=== PATIENT | male | born 1955 | race Caucasian/White ===

== ENCOUNTER 2017-07-26 14:44 | Inpatient (IN) | payer MEDICAID ==
[~2017-07-26] VITALS: Ht 182.9 cm; Wt 153.1 kg
[~2017-07-26 14:44] MED LIST: BENZ0.5T PO; CETI10 PO; CITA40TA4 PO; CLAR10CA3 PO; HYDR50CA PO; MONT10TA4 PO; OMEGCAP PO; RISP2TAB2 PO; SIMV40TA PO
[2017-07-26 15:05] VITALS: BP 124/77; PULSE 84; RESP 24; TEMP 98.5; O2SAT 90
--- NOTE | 2017-07-26 15:26 | PD ---
HPI Chief Complaint: Respiratory Symptoms Time Seen by Provider: 15:18 Travel History International Travel<30 days: No Contact w/Intl Traveler<30days: No Traveled to known affect area: No History of Present Illness HPI 62-year-old male with PMH of DM, HTN presents to the ED via EMS for evaluation of 2 week history of shortness of breath, cough productive of "green slime." Symptoms onset gradually. He denies fever, chills, sinus congestion, rhinorrhea , abdominal pain, nausea, vomiting, lower extremity edema. Denies any recent history of immobilization, previous DVT or PE. He was being seen in a outpatient clinic in [place] today when he had a coughing fit, O2 sats in the 60s. He received albuterol treatments 2 en route. O2 sats improved to 91% on 5 L by nasal cannula. He states that he does not see a doctor regularly. PFSH Past Medical History Depression: Yes High Cholesterol: Yes Diabetes: Yes (diet controlled) Patient Takes Glucophage: No Diminished Hearing: No Hypertension: Yes Influenza Vaccination: No Past Surgical History Cholecystectomy: Yes Social History Alcohol Use: No Tobacco Use: No Substance Use: No Allergies-Medications (Allergen,Severity, Reaction): Coded Allergies: No Known Allergies (Verified Adverse Reaction, Unknown, 07/26/17) Reported Meds & Prescriptions Reported Meds & Active Scripts Active Reported Montelukast (Montelukast Sodium) 10 Mg Tab 10 Mg PO HS Risperidone 2 Mg Tab 2 Mg PO HS Benztropine (Benztropine Mesylate) 0.5 Mg Tab 1 Mg PO HS Cetirizine (Cetirizine HCl) 10 Mg Tab 10 Mg PO DAILY Simvastatin 40 Mg Tab 40 Mg PO HS Citalopram (Citalopram Hydrobromide) 40 Mg Tab 40 Mg PO DAILY Hydroxyzine Pamoate 50 Mg Cap 50 Mg PO PRN Claritin (Loratadine) 10 Mg Cap 10 Mg PO DAILY [place]-3 Fish Oil/Vitamin (Fish Oil-Cholecalciferol) 1,000-1,000 Mg Cap 1 Cap PO DAILY Review of Systems Except as stated in HPI: all other systems reviewed are Neg Physical Exam Narrative GENERAL: Obese white male on nasal cannula in no acute distress. SKIN: Focused skin assessment warm/dry. Multiple small erythematous lesions of the extremities consistent with eczema HEAD: Normocephalic. EYES: No scleral icterus. No injection or drainage. NECK: Supple, trachea midline. No JVD or lymphadenopathy. CARDIOVASCULAR: Regular rate and rhythm without murmurs, gallops, or rubs. RESPIRATORY: Breath sounds coarse in the right lower lobe. Endocrine wheezing bilaterally. No accessory muscle use. GASTROINTESTINAL: Abdomen soft, protuberant, non-tender, nondistended. MUSCULOSKELETAL: No cyanosis, or edema. Homans sign negative bilaterally. BACK: Nontender without obvious deformity. No CVA tenderness. Data Data Last Documented VS Vital Signs Date Time Temp Pulse Resp B/P (MAP) Pulse Ox O2 Delivery O2 Flow Rate FiO2 07/26/17 17:05 91 Nasal Cannula 6.00 07/26/17 15:05 98.5 84 24 124/77 (93) Orders Orders Complete Blood Count With Diff (07/26/17 15:18) Comprehensive Metabolic Panel (07/26/17 15:18) B-Type Natriuretic Peptide (07/26/17 15:18) Act Partial Throm Time (Ptt) (07/26/17 15:18) Prothrombin Time / Inr (Pt) (07/26/17 15:18) Ckmb (Isoenzyme) Profile (07/26/17 15:18) Troponin I (07/26/17 15:18) Iv Access Insert/Monitor (07/26/17 15:18) Electrocardiogram (07/26/17 15:18) Ecg Monitoring (07/26/17 15:18) Oximetry (07/26/17 15:18) Oxygen Administration (07/26/17 15:18) Chest, Single Ap (07/26/17 15:18) Sodium Chloride 0.9% Flush (Ns Flush) (07/26/17 15:30) Albuterol-Ipratropium Neb (Duoneb Neb) (07/26/17 15:30) Methylprednisolone So Succ Inj (Solumedr (07/26/17 15:30) CKMB (07/26/17 15:09) CKMB% (07/26/17 15:09) Blood Culture (07/26/17 17:04) Ceftriaxone Inj (Rocephin Inj) (07/26/17 17:15) Azithromycin Inj (Zithromax Inj) (07/26/17 17:15) Admit Order (Ed Use Only) (07/26/17 17:31) Admit To Inpatient (07/26/17 ) Vital Signs (Adult) Q4H (07/26/17 17:31) Activity Oob With Assistance (07/26/17 17:31) Applications Analyst / Telemetry .CONTINUOUS (07/26/17 17:31) Intake + Output MIHAI.QSHIFT (07/26/17 17:31) Diet Heart Healthy (07/26/17 Dinner) Sodium Chloride 0.9% Flush (Ns Flush) (07/26/17 17:45) Sodium Chloride 0.9% Flush (Ns Flush) (07/26/17 21:00) Basic Metabolic Panel (Bmp) (07/27/17 06:00) Complete Blood Count With Diff (07/27/17 06:00) Pt Request For Service (07/26/17 17:31) Case Management Consult (07/26/17 17:31) Naloxone Inj (Narcan Inj) (07/26/17 17:45) Inpatient Certification (07/26/17 ) D-Dimer (07/26/17 17:31) Labs Laboratory Tests Test 07/26/17 15:09 White Blood Count 8.2 TH/MM3 Red Blood Count 5.19 MIL/MM3 Hemoglobin 15.4 GM/DL Hematocrit 46.4 % Mean Corpuscular Volume 89.4 FL Mean Corpuscular Hemoglobin 29.7 PG Mean Corpuscular Hemoglobin Concent 33.3 % Red Cell Distribution Width 15.2 % Platelet Count 200 TH/MM3 Mean Platelet Volume 7.7 FL Neutrophils (%) (Auto) 67.8 % Lymphocytes (%) (Auto) 14.7 % Monocytes (%) (Auto) 9.5 % Eosinophils (%) (Auto) 7.1 % Basophils (%) (Auto) 0.9 % Neutrophils # (Auto) 5.5 TH/MM3 Lymphocytes # (Auto) 1.2 TH/MM3 Monocytes # (Auto) 0.8 TH/MM3 Eosinophils # (Auto) 0.6 TH/MM3 Basophils # (Auto) 0.1 TH/MM3 CBC Comment DIFF FINAL Differential Comment Prothrombin Time 13.4 SEC Prothromb Time International Ratio 1.3 RATIO Activated Partial Thromboplast Time 32.0 SEC Blood Urea Nitrogen 11 MG/DL Creatinine 1.54 MG/DL Random Glucose 88 MG/DL Total Protein 9.1 GM/DL Albumin 2.7 GM/DL Calcium Level 8.3 MG/DL Alkaline Phosphatase 115 U/L Aspartate Amino Transf (AST/SGOT) 34 U/L Alanine Aminotransferase (ALT/SGPT) 17 U/L Total Bilirubin 0.7 MG/DL Sodium Level 135 MEQ/L Potassium Level 3.9 MEQ/L Chloride Level 99 MEQ/L Carbon Dioxide Level 27.8 MEQ/L Anion Gap 8 MEQ/L Estimat Glomerular Filtration Rate 46 ML/MIN Total Creatine Kinase 135 U/L Creatine Kinase MB LESS THAN 0.5 NG/ML Troponin I LESS THAN 0.02 NG/ML B-Type Natriuretic Peptide 6 PG/ML MDM Medical Decision Making Medical Screen Exam Complete: Yes Emergency Medical Condition: Yes Differential Diagnosis PNA versus COPD versus PE versus ACS versus other Narrative Course 62-year-old male with PMH of DM, HTN presents to the ED via EMS for evaluation after having O2 sats in the 60s during a coughing fit an outpatient clinic in [facility]. He reports 2 week history of shortness of breath, cough productive of "green slime." Symptoms onset gradually. He denies fever, chills , sinus congestion, rhinorrhea, abdominal pain, nausea, vomiting, lower extremity edema, history of immobilization, previous DVT or PE. He received albuterol treatments 2 en route. O2 sats improved to 91% on 5 L by nasal cannula on arrival. Vitals reviewed. On exam this is a obese white male in no acute distress. He has coarse breath sounds in the right lower lobe and end expiratory wheezing bilaterally. IV was established. He was administered IV Solu-Medrol, DuoNeb 2. EKG rate 87, sinus rhythm. Normal intervals. Normal axis. Inverted T waves noted in leads III, V1, V2, V3. This is new as compared to previous EKG of . Reviewed by Dr. Garces. Cardiac enzymes negative 1. CXR: Mild edema pattern. Can't exclude infectious infiltrate. No effusion. No pneumothorax. WBC no concerning abnormalities. INR 1.3. CMP: BUN 11, creatinine 1.54. BNP: 6 Wells PE score:0 On recheck O2 sats 87% on 4 L nasal cannula. Blood cultures were drawn. Patient was administered IV azithromycin and Rocephin. I discussed the results of the workup with the patient and recommended admission due to CAP, ongoing hypoxia and EKG changes. The patient and his are agreeable to this plan. I spoke with Dr. Sage who agrees to accept the patient to the medicine service. Please see medicine notes for disposition. Sultana Keith Jul 26, 2017 15:26
[2017-07-26] MEDS ORDERED: SODIUM CHLORIDE 0.9% FLUSH 10 ML FLUSH IVF PRN (15:30)
[2017-07-26] MEDS ORDERED: methylPREDNISolone SOD SUCC 125 MG/2 ML VIAL IV PUSH ONE (15:30)
[2017-07-26 15:33] VITALS: O2SAT 92
[2017-07-26] MEDS: RESP: ALBUTEROL 2.5 MG/IPRATROPIUM 0.5 MG NEB (SCH) INH (15:33)
[2017-07-26 15:57] LABS: AUTOMATED NEUTROPHIL # 5.5 TH/MM3 (1.8-7.7); BASOPHIL # 0.1 TH/MM3 (0-0.2); BASOPHIL % 0.9 % (0.0-2.0); EOSINOPHIL # 0.6 TH/MM3 (0-0.4); EOSINOPHIL % 7.1 % (0.0-4.0); HEMATOCRIT 46.4 % (39.0-51.0); HEMOGLOBIN 15.4 GM/DL (13.0-17.0); LYMPH % 14.7 % (9.0-44.0); LYMPHOCYTE # 1.2 TH/MM3 (1.0-4.8); MEAN CELL VOLUME 89.4 FL (80.0-100.0); MEAN CORPUSCULAR HEMOGLOBIN 29.7 PG (27.0-34.0); MEAN CORPUSCULAR HGB CONC 33.3 % (32.0-36.0); MEAN PLATELET VOLUME 7.7 FL (7.0-11.0); MONO % 9.5 % (0.0-8.0); MONOCYTE # 0.8 TH/MM3 (0-0.9); NEUT % 67.8 % (16.0-70.0); PLATELET COUNT 200 TH/MM3 (150-450); RED BLOOD COUNT 5.19 MIL/MM3 (4.50-5.90); RED CELL DISTRIBUTION WIDTH 15.2 % (11.6-17.2); WHITE BLOOD COUNT 8.2 TH/MM3 (4.0-11.0)
[2017-07-26 16:04] LABS: INTERNATIONAL NORMALIZED RATIO 1.3 RATIO; PROTHROMBIN TIME - PATIENT 13.4 SEC (9.8-11.6)
--- NOTE | 2017-07-26 16:08 | PD ---
Data Data Last Documented VS Vital Signs Date Time Temp Pulse Resp B/P (MAP) Pulse Ox O2 Delivery O2 Flow Rate FiO2 07/26/17 17:05 91 Nasal Cannula 6.00 07/26/17 15:05 98.5 84 24 124/77 (93) Orders Orders Complete Blood Count With Diff (07/26/17 15:18) Comprehensive Metabolic Panel (07/26/17 15:18) B-Type Natriuretic Peptide (07/26/17 15:18) Act Partial Throm Time (Ptt) (07/26/17 15:18) Prothrombin Time / Inr (Pt) (07/26/17 15:18) Ckmb (Isoenzyme) Profile (07/26/17 15:18) Troponin I (07/26/17 15:18) Iv Access Insert/Monitor (07/26/17 15:18) Electrocardiogram (07/26/17 15:18) Ecg Monitoring (07/26/17 15:18) Oximetry (07/26/17 15:18) Oxygen Administration (07/26/17 15:18) Chest, Single Ap (07/26/17 15:18) Sodium Chloride 0.9% Flush (Ns Flush) (07/26/17 15:30) Albuterol-Ipratropium Neb (Duoneb Neb) (07/26/17 15:30) Methylprednisolone So Succ Inj (Solumedr (07/26/17 15:30) CKMB (07/26/17 15:09) CKMB% (07/26/17 15:09) Blood Culture (07/26/17 17:04) Ceftriaxone Inj (Rocephin Inj) (07/26/17 17:15) Azithromycin Inj (Zithromax Inj) (07/26/17 17:15) Admit To Inpatient (07/26/17 ) Vital Signs (Adult) Q4H (07/26/17 17:31) Activity Oob With Assistance (07/26/17 17:31) Cleaner And Polisher / Telemetry .CONTINUOUS (07/26/17 17:31) Intake + Output MIHAI.QSHIFT (07/26/17 17:31) Sodium Chloride 0.9% Flush (Ns Flush) (07/26/17 17:45) Sodium Chloride 0.9% Flush (Ns Flush) (07/26/17 21:00) Basic Metabolic Panel (Bmp) (07/27/17 06:00) Complete Blood Count With Diff (07/27/17 06:00) Pt Request For Service (07/26/17 17:31) Case Management Consult (07/26/17 17:31) Naloxone Inj (Narcan Inj) (07/26/17 17:45) Inpatient Certification (07/26/17 ) D-Dimer (07/26/17 17:31) Labs Laboratory Tests Test 07/26/17 15:09 White Blood Count 8.2 TH/MM3 Red Blood Count 5.19 MIL/MM3 Hemoglobin 15.4 GM/DL Hematocrit 46.4 % Mean Corpuscular Volume 89.4 FL Mean Corpuscular Hemoglobin 29.7 PG Mean Corpuscular Hemoglobin Concent 33.3 % Red Cell Distribution Width 15.2 % Platelet Count 200 TH/MM3 Mean Platelet Volume 7.7 FL Neutrophils (%) (Auto) 67.8 % Lymphocytes (%) (Auto) 14.7 % Monocytes (%) (Auto) 9.5 % Eosinophils (%) (Auto) 7.1 % Basophils (%) (Auto) 0.9 % Neutrophils # (Auto) 5.5 TH/MM3 Lymphocytes # (Auto) 1.2 TH/MM3 Monocytes # (Auto) 0.8 TH/MM3 Eosinophils # (Auto) 0.6 TH/MM3 Basophils # (Auto) 0.1 TH/MM3 CBC Comment DIFF FINAL Differential Comment Prothrombin Time 13.4 SEC Prothromb Time International Ratio 1.3 RATIO Activated Partial Thromboplast Time 32.0 SEC Blood Urea Nitrogen 11 MG/DL Creatinine 1.54 MG/DL Random Glucose 88 MG/DL Total Protein 9.1 GM/DL Albumin 2.7 GM/DL Calcium Level 8.3 MG/DL Alkaline Phosphatase 115 U/L Aspartate Amino Transf (AST/SGOT) 34 U/L Alanine Aminotransferase (ALT/SGPT) 17 U/L Total Bilirubin 0.7 MG/DL Sodium Level 135 MEQ/L Potassium Level 3.9 MEQ/L Chloride Level 99 MEQ/L Carbon Dioxide Level 27.8 MEQ/L Anion Gap 8 MEQ/L Estimat Glomerular Filtration Rate 46 ML/MIN Hemoglobin A1c 6.2 % Total Creatine Kinase 135 U/L Creatine Kinase MB LESS THAN 0.5 NG/ML Troponin I LESS THAN 0.02 NG/ML B-Type Natriuretic Peptide 6 PG/ML MDM Medical Record Reviewed: Yes Supervised Visit with SHOBHA: Yes Narrative Course This report is in ERROR Please disregard this report and all prior copies ! This report is in ERROR Please disregard this report and all prior copies ! This report is in ERROR Please disregard this report and all prior copies ! Dheeraj Garces MD Jul 26, 2017 16:08
[2017-07-26 16:19] LABS: ALT (GPT) 17 U/L (12-78)
[2017-07-26 16:23] LABS: ALKALINE PHOSPHATASE 115 U/L (45-117); TOTAL BILIRUBIN ADULT 0.7 MG/DL (0.2-1.0); TOTAL PROTEIN 9.1 GM/DL (6.4-8.2); TROPONIN I LESS THAN 0.02 NG/ML (0.02-0.05)
--- NOTE | 2017-07-26 16:39 | RADRPT ---
EXAM DATE/TIME: 07/26/2017 15:51 [facility] COMPARISON: No previous studies available for comparison. INDICATIONS : Shortness of breath. MEDICAL HISTORY : Hypercholesterolemia. Hypertension. Diabetes. Depression. SURGICAL HISTORY : None. ENCOUNTER: Initial ACUITY: 1 day PAIN SCORE: 0/10 LOCATION: Bilateral chest FINDINGS: Mild hazy opacity in the lungs today are present mild edema. Cardiomegaly. No effusion. No pneumothor ax. CONCLUSION: 1. Mild edema pattern. Can't exclude infectious infiltrate. No significant effusion. No pneumothorax. Gulshan Gandara MD on July 26, 2017 at 16:35 Board Certified Radiologist. This report was verified electronically.
[2017-07-26 16:43] LABS: ALBUMIN 2.7 GM/DL (3.4-5.0); AST (GOT) 34 U/L (15-37); BICARBONATE 27.8 MEQ/L (21.0-32.0); BLOOD UREA NITROGEN 11 MG/DL (7-18); CALCIUM 8.3 MG/DL (8.5-10.1); CHLORIDE 99 MEQ/L (98-107); CREATININE 1.54 MG/DL (0.60-1.30); GLOMERULAR FILTRATION RATE 46 ML/MIN (>89); GLUCOSE,RANDOM 88 MG/DL (74-106); SODIUM (NA) 135 MEQ/L (136-145)
[2017-07-26] MEDS ORDERED: AZITHROMYCIN INJ 500 MG in SODIUM CHLOR 0.9% 250 ML INJ 250 ML IV ONE (17:15)
[2017-07-26] MEDS ORDERED: cefTRIAXone INJ 1,000 MG in SODIUM CHLORIDE 0.9% INJ 100 ML IV ONE (17:15)
[2017-07-26] MEDS ORDERED: DEXTROSE 50% IN WATER 50 ML VIAL(D50) IV PUSH PRN (17:45)
[2017-07-26] MEDS ORDERED: RESP: ALBUTEROL 2.5 MG/IPRATROPIUM 0.5 MG NEB (PRN) NEB (17:45)
[2017-07-26] MEDS ORDERED: NALOXONE HCL 0.4 MG/ML AMP IV PUSH PRN (17:45)
[2017-07-26] MEDS ORDERED: GLUCAGON 1 MG/ML VIAL OTHER PRN (17:45)
[2017-07-26] MEDS ORDERED: SODIUM CHLORIDE 0.9% FLUSH 10 ML FLUSH IV FLUSH PRN (17:45)
[2017-07-26] MEDS: methylPREDNISolone SOD SUCC 40 MG/1 ML VIAL IV PUSH SCH (18:34)
[2017-07-26 18:56] VITALS: BP 123/66; PULSE 79; RESP 26; O2SAT 94
--- NOTE | 2017-07-26 19:33 | HHI.HP ---
HPI Service [facility] Primary Care Physician Alok Ball D.O. Admission Diagnosis CAP, hypoxia, EKG changes Diagnoses: Travel History International Travel<30 Days: No Contact w/Intl Traveler <30 Da: No Traveled to Known Affected Are: No History of Present Illness History from patient, at the bedside, ER PA, and nursing staff. short of breath one month went to doctor today and was sent here had cough green sputum no antiobtics no fever ususally coughs a lot not on home oxygen, no inhalors at home in ER was hypoxic 91% on 5L, and was in 60s% on RA by ambulance on my arrival, still on 6L when tapered down to 3L, desat to 88% but looks comfortable stays mostly in bed and recliners at home LE swelling more and more, bilateral need about 5 pillows - but this is chronic- not worsened in past few months no n/v/d/ no blood in stool or urine no buring or freq but had pain on uriantion Review of Systems Except as stated in HPI: all other systems reviewed are Neg Past Family Social History Past Medical History no htn no cardiac hx denies hx of copd/emphysema/sleep apnea reports does snor a lot and has apneic episode denies liver/ kidney/stroke. blood clot.seizures/htyroid hx of rectal cancer - s/p chemo and radiation, about 5 yrs ago borderline dm obesity possible SHADIA Past Surgical History cholecystectomy Allergies: Coded Allergies: No Known Allergies (Verified Adverse Reaction, Unknown, 07/26/17) Family History no medical issues that he knows of Social History never smoked never drank etoh heavily no drugs lives with ,no longer driving Physical Exam Vital Signs Vital Signs Date Time Temp Pulse Resp B/P (MAP) Pulse Ox O2 Delivery O2 Flow Rate FiO2 07/26/17 19:14 18 07/26/17 18:56 79 26 123/66 (85) 94 Nasal Cannula 6.00 07/26/17 17:05 91 Nasal Cannula 6.00 07/26/17 17:00 87 Nasal Cannula 5.00 1/23/18 15:50 93 Nasal Cannula 4.00 07/26/17 15:33 92 Nasal Cannula 5.00 07/26/17 15:16 91 Nasal Cannula 4.00 07/26/17 15:05 98.5 84 24 124/77 (93) 90 Physical Exam GENERAL: This is a well-nourished, well-developed patient, in no apparent distress. obese, mouth breather SKIN: dry skin with occasional scabs HEAD: Atraumatic. Normocephalic. No temporal or scalp tenderness. EYES: No scleral icterus. No injection or drainage. ENT: Nose without bleeding, purulent drainage or septal hematoma. Airway patent. NECK: Trachea midline. No JVD . Supple, nontender, no meningeal signs. CARDIOVASCULAR: Regular rate and rhythm without murmurs, gallops, or rubs. RESPIRATORY: Bilaterally decreased air entry. Tight air entry. No dolly rales. GASTROINTESTINAL: Abdomen soft, non-tender, nondistended. No guarding. obese, no suprapubic tenderness MUSCULOSKELETAL: Extremities without clubbing, cyanosis. No calf tenderness. Bilateral lower extremity nonpitting edema. More of obesity. NEUROLOGICAL: Awake and alert.. Motor and sensory grossly within normal limits. Normal speech. Laboratory Laboratory Tests Test 07/26/17 15:09 White Blood Count 8.2 Red Blood Count 5.19 Hemoglobin 15.4 Hematocrit 46.4 Mean Corpuscular Volume 89.4 Mean Corpuscular Hemoglobin 29.7 Mean Corpuscular Hemoglobin Concent 33.3 Red Cell Distribution Width 15.2 Platelet Count 200 Mean Platelet Volume 7.7 Neutrophils (%) (Auto) 67.8 Lymphocytes (%) (Auto) 14.7 Monocytes (%) (Auto) 9.5 Eosinophils (%) (Auto) 7.1 Basophils (%) (Auto) 0.9 Neutrophils # (Auto) 5.5 Lymphocytes # (Auto) 1.2 Monocytes # (Auto) 0.8 Eosinophils # (Auto) 0.6 Basophils # (Auto) 0.1 CBC Comment DIFF FINAL Differential Comment Prothrombin Time 13.4 Prothromb Time International Ratio 1.3 Activated Partial Thromboplast Time 32.0 Blood Urea Nitrogen 11 Creatinine 1.54 Random Glucose 88 Total Protein 9.1 Albumin 2.7 Calcium Level 8.3 Alkaline Phosphatase 115 Aspartate Amino Transf (AST/SGOT) 34 Alanine Aminotransferase (ALT/SGPT) 17 Total Bilirubin 0.7 Sodium Level 135 Potassium Level 3.9 Chloride Level 99 Carbon Dioxide Level 27.8 Anion Gap 8 Estimat Glomerular Filtration Rate 46 Total Creatine Kinase 135 Creatine Kinase MB LESS THAN 0.5 Troponin I LESS THAN 0.02 B-Type Natriuretic Peptide 6 Date/Time Source Procedure Growth Status 07/26/17 17:27 Blood Line Aerobic Blood Culture Pending Received 07/26/17 17:27 Blood Line Anaerobic Blood Culture Pending Received Result Diagram: 07/26/17 1509 07/26/17 1509 Imaging Last 48 hours Impressions Chest X-Ray 07/26/17 1518 Signed Impressions: Service Date/Time: Wednesday, July 26, 2017 15:51 - CONCLUSION: 1. Mild edema pattern. Can't exclude infectious infiltrate. No significant effusion. No pneumothorax. Gulshan Gandara MD Lower Extremity Ultrasound 07/26/17 0000 Signed Impressions: Service Date/Time: Wednesday, July 26, 2017 19:51 - CONCLUSION: 1. Negative for deep venous thrombosis. Gulshan Gandara MD Caprini VTE Risk Assessment Caprini VTE Risk Assessment: Mod/High Risk (score >= 2) Caprini Risk Assessment Model Point Value = 1 Point Value = 2 Point Value = 3 Point Value = 5 Age 41-60 Minor surgery BMI > 25 kg/m2 Swollen legs Varicose veins or History of unexplained or recurrent spontaneous Oral contraceptives or hormone replacement Sepsis (< 1 month) Serious lung disease, including pneumonia (< 1 month) Abnormal pulmonary function Acute myocardial infarction Congestive heart failure (< 1 month) History of inflammatory bowel disease Medical patient at bed rest Age 61-74 Arthroscopic surgery Major open surgery (> 45 min) Laparoscopic surgery (> 45 min) Malignancy Confined to bed (> 72 hours) Immobilizing plaster cast Central venous access Age >= 75 History of VTE Family history of VTE Factor V Leiden Prothrombin [id number] Lupus anticoagulant Anticardiolipin antibodies Elevated serum homocysteine Heparin-induced thrombocytopenia Other congenital or acquired thrombophilia Stroke (< 1 month) Elective arthroplasty Hip, pelvis, or leg fracture Acute spinal cord injury (< 1 month) Prophylaxis Regimen Total Risk Factor Score Risk Level Prophylaxis Regimen 0-1 Low Early ambulation 2 Moderate Order ONE of the following: *Sequential Compression Device (SCD) *Heparin 5000 units SQ BID 3-4 Higher Order ONE of the following medications: *Heparin 5000 units SQ TID *Enoxaparin/Lovenox 40 mg SQ daily (WT < 150 kg, CrCl > 30 mL/min) *Enoxaparin/Lovenox 30 mg SQ daily (WT < 150 kg, CrCl > 10-29 mL/min) *Enoxaparin/Lovenox 30 mg SQ BID (WT < 150 kg, CrCl > 30 mL/min) AND/OR *Sequential Compression Device (SCD) 5 or more Highest Order ONE of the following medications: *Heparin 5000 units SQ TID (Preferred with Epidurals) *Enoxaparin/Lovenox 40 mg SQ daily (WT < 150 kg, CrCl > 30 mL/min) *Enoxaparin/Lovenox 30 mg SQ daily (WT < 150 kg, CrCl > 10-29 mL/min) *Enoxaparin/Lovenox 30 mg SQ BID (WT < 150 kg, CrCl > 30 mL/min) AND *Sequential Compression Device (SCD) Assessment and Plan Assessment and Plan Impression: Hypoxic respiratory failure Possible viral illness causing above Possible pulmonary embolism. High risk patient with impaired mobility/obesity/ significant hypoxia Lower extremity edema. Suspects DVT to rule out. Suspects diastolic dysfunction. However not in acute exacerbation. Suspects untreated sleep apnea Acute kidney injury. From dehydration Plan: CT pulmonary angiogram. Lovenox therapeutic dose 1. Oxygen supplementation. Patient is still requiring 5-6 L by nasal cannular to maintain O2 sat at 90-93%. I have tried supplementing oxygen by mouth and similar saturations resulted. Echocardiogram in a.m. Serial cardiac enzymes and EKGs. Ultrasound of bilateral lower extremity. Check HbA1c. We'll monitor fingersticks. Sliding scale low dose coverage if patient has high blood sugar with Solu- Medrol use. Patient received Rocephin and azithromycin in ER. Chest x-ray personally reviewed. Possible early infiltrates. Given that patient is at high risk with impaired lung function/sleep apnea/possible underlying COPD, I would treat with antibiotics. We'll continue Rocephin and azithromycin. Sputum cultures. Obtain home meds from [facility] pharmacy in [place]. DVT prophylaxis on Lovenox. GI prophylaxis on ranitidine. Discussed Condition With patient, ER PA, nursing staff Physician Certification 2 Midnight Certification Type: Admission for Inpatient Services Order for Inpatient Services The services are ordered in accordance with Medicare regulations or non- Medicare payer requirements, as applicable. In the case of services not specified as inpatient-only, they are appropriately provided as inpatient services in accordance with the 2-midnight benchmark. Estimated LOS (days): 4 days is the estimated time the patient will need to remain in the hospital, assuming treatment plan goals are met and no additional complications. Post-Hospital Plan: Home Kyler Sage MD Jul 26, 2017 19:33
[2017-07-26] MEDS ORDERED: ENOXAPARIN SODIUM 150 MG/ML SYRINGE SQ ONE (20:00)
[2017-07-26 20:24] LABS: BILIRUBIN, URINE NEG (NEG); BLOOD, URINE NEG (NEG); GLUCOSE,URINE NEG (NEG); KETONE, URINE TRACE mg/dL (NEG); NITRITE,URINE NEG (NEG); PH, URINE 5.5 (5.0-8.5); SQUAMOUS EPITHELIAL CELL URINE <1 /hpf (0-5); URINE COLOR YELLOW (YELLW/STRAW); URINE LEUKOCYTE ESTERASE NEG (NEG)
--- NOTE | 2017-07-26 20:27 | RADRPT ---
EXAM DATE/TIME: 07/26/2017 19:51 [facility] COMPARISON: No previous studies available for comparison. INDICATIONS : Bilateral leg swelling. MEDICAL HISTORY : Hypercholesterolemia. Hypertension. Diabetes. Depression. Eczema. SURGICAL HISTORY : Cholecystectomy. ENCOUNTER: Initial ACUITY: 1 day PAIN SCORE: 2/10 LOCATION: Bilateral legs. TECHNIQUE: Venous ultrasound of the left and right leg was performed from the inguinal ligament to the proximal calf. Real-time, color Doppler and spectral tracing, compression and augmentation techniques were us ed. FINDINGS: RIGHT LEG: There is normal compressibility of the deep venous system from the inguinal region to the proximal ca lf. No echogenic clot is seen in the lumen of the common femoral, femoral, popliteal, and posterior tibial veins. There is a normal response of the venous system to proximal and distal augmentation an d respiration. LEFT LEG: There is normal compressibility of the deep venous system from the inguinal region to the proximal ca lf. No echogenic clot is seen in the lumen of the common femoral, femoral, popliteal, and posterior tibial veins. There is a normal response of the venous system to proximal and distal augmentation an d respiration. CONCLUSION: 1. Negative for deep venous thrombosis. Gulshan Gandara MD on July 26, 2017 at 20:24 Board Certified Radiologist. This report was verified electronically.
[2017-07-26] MEDS ORDERED: IOHEXOL 350 MG/ML 10 ML VIAL (for RAD DIAG) IVCONTRAST ONE (20:29)
[2017-07-26] MEDS: INSULIN ASPART SUPPLEMENTAL SCALE SQ SCH (21:07)
[2017-07-26] MEDS: FAMOTIDINE 20 MG TAB PO SCH (21:07)
[2017-07-26] MEDS: MONTELUKAST SODIUM 10 MG TAB PO SCH (21:07)
[2017-07-26] MEDS: BENZTROPINE MESYLATE 1 MG TAB PO SCH (21:07)
[2017-07-26] MEDS: SODIUM CHLORIDE 0.9% FLUSH 10 ML FLUSH IV FLUSH SCH (21:08)
[2017-07-26] MEDS: RESP: ALBUTEROL 2.5 MG/IPRATROPIUM 0.5 MG NEB (SCH) NEB (21:11)
[2017-07-26 21:16] VITALS: O2SAT 92
--- NOTE | 2017-07-26 21:22 | EKG ---
Date Performed: 07/26/2017 Time Performed: 16:07:03 PTAGE: 62 years EKG: Sinus rhythm NONSPECIFIC T-WAVE ABNORMALITY BORDERLINE ECG PREVIOUS TRACING : 02/12/2016 22.41 Since previous tracing, no significant change noted DOCTOR: Nahun Hogan Interpretating Date/Time 07/26/2017 21:22:07
--- NOTE | 2017-07-26 21:41 | RADRPT ---
EXAM DATE/TIME: 07/26/2017 20:21 [facility] COMPARISON: No previous studies available for comparison. INDICATIONS : Cough for one week; shortness of breath. IV CONTRAST: 75 cc Omnipaque 350 (iohexol) IV RADIATION DOSE: 10.93 CTDIvol (mGy) MEDICAL HISTORY : Hypertension. SURGICAL HISTORY : None. ENCOUNTER: Initial ACUITY: 1 day PAIN SCALE: 0/10 LOCATION: Bilateral chest TECHNIQUE: Volumetric scanning of the chest was performed using a pulmonary embolism protocol MIP images were re constructed. Using automated exposure control and adjustment of the mA and/or kV according to patien t size, radiation dose was kept as low as reasonably achievable to obtain optimal diagnostic quality images. DICOM format image data is available electronically for review and comparison. Follow-up recommendations for detected pulmonary nodules are based at a minimum on nodule size and pa tient risk factors according to Fleischner Society Guidelines. FINDINGS: No filling defects identified to suggest pulmonary embolus. No pleural or pericardial effusion. Patchy airspace disease present in both lungs slightly worse in t he upper lobes. Differential diagnosis includes infection and hypersensitivity type reaction. CONCLUSION: 1. Negative pulmonary embolus. 2. Diffuse patchy groundglass opacity in both lungs more severe in upper lobes. Differential diagnosi s includes infection and hypersensitivity type reaction. Gulshan Gandara MD on July 26, 2017 at 21:36 Board Certified Radiologist. This report was verified electronically.
[2017-07-26 22:00] VITALS: BP 113/63; PULSE 73; RESP 20; O2SAT 94
[2017-07-27] VITALS (12 sets, daily range): BP systolic 92–115; BP diastolic 53–66; PULSE 51–63; RESP 19–26; TEMP 98.2–98.8; O2SAT 94–98
[2017-07-27] MEDS: methylPREDNISolone SOD SUCC 40 MG/1 ML VIAL IV PUSH SCH ×5 (00:15→23:34)
[2017-07-27] MEDS: RESP: ALBUTEROL 2.5 MG/IPRATROPIUM 0.5 MG NEB (SCH) NEB ×4 (02:50→20:19)
[2017-07-27] MEDS: INSULIN ASPART SUPPLEMENTAL SCALE SQ SCH ×4 (08:47→21:19)
[2017-07-27] MEDS: SODIUM CHLORIDE 0.9% FLUSH 10 ML FLUSH IV FLUSH SCH ×2 (08:48→21:18)
[2017-07-27] MEDS: FAMOTIDINE 20 MG TAB PO SCH ×2 (08:48→21:17)
[2017-07-27] MEDS: cefTRIAXone INJ 1,000 MG in SODIUM CHLORIDE 0.9% INJ 100 ML IV SCH (08:48)
[2017-07-27] MEDS: AZITHROMYCIN 250 MG TAB PO SCH (08:48)
[2017-07-27 09:14] LABS: AUTOMATED NEUTROPHIL # 7.4 TH/MM3 (1.8-7.7); BASOPHIL % 0.2 % (0.0-2.0); EOSINOPHIL % 0.1 % (0.0-4.0); HEMATOCRIT 44.3 % (39.0-51.0); HEMOGLOBIN 14.9 GM/DL (13.0-17.0); LYMPH % 7.8 % (9.0-44.0); LYMPHOCYTE # 0.6 TH/MM3 (1.0-4.8); MEAN CELL VOLUME 89.4 FL (80.0-100.0); MEAN CORPUSCULAR HEMOGLOBIN 30.1 PG (27.0-34.0); MEAN CORPUSCULAR HGB CONC 33.7 % (32.0-36.0); MEAN PLATELET VOLUME 7.7 FL (7.0-11.0); MONO % 1.6 % (0.0-8.0); MONOCYTE # 0.1 TH/MM3 (0-0.9); NEUT % 90.3 % (16.0-70.0); PLATELET COUNT 191 TH/MM3 (150-450); RED BLOOD COUNT 4.95 MIL/MM3 (4.50-5.90); RED CELL DISTRIBUTION WIDTH 15.1 % (11.6-17.2); WHITE BLOOD COUNT 8.2 TH/MM3 (4.0-11.0)
[2017-07-27 09:41] LABS: BICARBONATE 25.6 MEQ/L (21.0-32.0); CALCIUM 8.6 MG/DL (8.5-10.1); CREATININE 1.42 MG/DL (0.60-1.30)
--- NOTE | 2017-07-27 14:19 | HHI.PR ---
Subjective Remarks This is a pleasant 62 y/o Male who came to ER with Shortness of breath for one month, had cough, afebrile, do not use Home Oxygen, Hypoxic in ER, he has Hypertension, history of Rectal cancer, Obesity, Possible SHADIA, stable in his bedroom, in the presence of his and nurse Objective Vital Signs Date Time Temp Pulse Resp B/P (MAP) Pulse Ox O2 Delivery O2 Flow Rate FiO2 07/27/17 12:57 98.4 58 19 115/66 (82) 97 07/27/17 12:50 07/27/17 12:30 53 24 104/64 (77) 95 Simple Mask 6.00 07/27/17 11:21 95 Simple Mask 8.00 07/27/17 08:22 51 24 92/53 (66) 96 Simple Mask 9.00 07/27/17 06:35 53 24 101/58 (72) 94 Simple Mask 9.00 07/27/17 01:26 62 24 96/58 (71) 95 Simple Mask 6.00 07/26/17 23:01 95 Simple Mask 6.00 07/26/17 22:00 73 20 113/63 (80) 94 Nasal Cannula 6.00 07/26/17 21:16 92 Nasal Cannula 6.00 07/26/17 19:14 18 07/26/17 18:56 79 26 123/66 (85) 94 Nasal Cannula 6.00 07/26/17 17:05 91 Nasal Cannula 6.00 07/26/17 17:00 87 Nasal Cannula 5.00 07/26/17 15:50 93 Nasal Cannula 4.00 07/26/17 15:33 92 Nasal Cannula 5.00 07/26/17 15:16 91 Nasal Cannula 4.00 07/26/17 15:05 98.5 84 24 124/77 (93) 90 Result Diagram: 07/27/17 0759 07/27/17 0759 Imaging Last Impressions Chest X-Ray 07/26/17 1518 Signed Impressions: Service Date/Time: Wednesday, July 26, 2017 15:51 - CONCLUSION: 1. Mild edema pattern. Can't exclude infectious infiltrate. No significant effusion. No pneumothorax. Gulshan Gandara MD Lower Extremity Ultrasound 07/26/17 0000 Signed Impressions: Service Date/Time: Wednesday, July 26, 2017 19:51 - CONCLUSION: 1. Negative for deep venous thrombosis. Gulshan Gandara MD CT Angiography 07/26/17 0000 Signed Impressions: Service Date/Time: Wednesday, July 26, 2017 20:21 - CONCLUSION: 1. Negative pulmonary embolus. 2. Diffuse patchy groundglass opacity in both lungs more severe in upper lobes. Differential diagnosis includes infection and hypersensitivity type reaction. Gulshan Gandara MD Procedures None Other Results Laboratory Tests Test 07/26/17 15:09 07/26/17 19:42 07/27/17 01:20 07/27/17 07:59 Prothrombin Time 13.4 SEC Prothromb Time International Ratio 1.3 RATIO Activated Partial Thromboplast Time 32.0 SEC Blood Urea Nitrogen 11 MG/DL 14 MG/DL Creatinine 1.54 MG/DL 1.42 MG/DL Random Glucose 88 MG/DL 140 MG/DL Total Protein 9.1 GM/DL Albumin 2.7 GM/DL Calcium Level 8.3 MG/DL 8.6 MG/DL Alkaline Phosphatase 115 U/L Aspartate Amino Transf (AST/SGOT) 34 U/L Alanine Aminotransferase (ALT/SGPT) 17 U/L Total Bilirubin 0.7 MG/DL Sodium Level 135 MEQ/L 133 MEQ/L Potassium Level 3.9 MEQ/L 4.6 MEQ/L Chloride Level 99 MEQ/L 98 MEQ/L Carbon Dioxide Level 27.8 MEQ/L 25.6 MEQ/L Total Creatine Kinase 135 U/L Creatine Kinase MB LESS THAN 0.5 NG/ML Troponin I LESS THAN 0.02 NG/ML B-Type Natriuretic Peptide 6 PG/ML Urine Color YELLOW Urine Turbidity CLEAR Urine pH 5.5 Urine Specific [place] 1.012 Urine Protein TRACE mg/dL Urine Glucose (UA) NEG mg/dL Urine Ketones TRACE mg/dL Urine Occult Blood NEG Urine Nitrite NEG Urine Bilirubin NEG Urine Urobilinogen LESS THAN 2.0 MG/DL Urine Leukocyte Esterase NEG Urine RBC LESS THAN 1 /hpf Urine WBC 2 /hpf Urine Squamous Epithelial Cells <1 /hpf Microscopic Urinalysis Comment CULT NOT INDICATED D-Dimer Quantitative (PE/DVT) 1.53 MG/L FEU White Blood Count 8.2 TH/MM3 Red Blood Count 4.95 MIL/MM3 Hemoglobin 14.9 GM/DL Hematocrit 44.3 % Mean Corpuscular Volume 89.4 FL Mean Corpuscular Hemoglobin 30.1 PG Mean Corpuscular Hemoglobin Concent 33.7 % Red Cell Distribution Width 15.1 % Platelet Count 191 TH/MM3 Mean Platelet Volume 7.7 FL Neutrophils (%) (Auto) 90.3 % Lymphocytes (%) (Auto) 7.8 % Monocytes (%) (Auto) 1.6 % Eosinophils (%) (Auto) 0.1 % Basophils (%) (Auto) 0.2 % Neutrophils # (Auto) 7.4 TH/MM3 Lymphocytes # (Auto) 0.6 TH/MM3 Monocytes # (Auto) 0.1 TH/MM3 Eosinophils # (Auto) 0.0 TH/MM3 Basophils # (Auto) 0.0 TH/MM3 CBC Comment DIFF FINAL Differential Comment Anion Gap 9 MEQ/L Estimat Glomerular Filtration Rate 51 ML/MIN Objective Remarks GENERAL: Morbid obesity. SKIN: dry skin with occasional scabs HEAD: Atraumatic. Normocephalic. No temporal or scalp tenderness. EYES: No scleral icterus. No injection or drainage. ENT: Nose without bleeding, purulent drainage or septal hematoma. Airway patent. NECK: Trachea midline. No JVD . Supple, nontender, no meningeal signs. CARDIOVASCULAR: Regular rate and rhythm without murmurs, gallops, or rubs. RESPIRATORY: Bilaterally decreased air entry. Tight air entry. No dolly rales. GASTROINTESTINAL: Abdomen soft, non-tender, nondistended. No guarding. obese, no suprapubic tenderness MUSCULOSKELETAL: Extremities without clubbing, cyanosis. No calf tenderness. Bilateral lower extremity nonpitting edema. More of obesity. NEUROLOGICAL: Awake and alert.. Motor and sensory grossly within normal limits. Normal speech. Medications and IVs Current Medications Medications (Trade) Dose Ordered Sig/Kenzie Route Start Time Stop Time Status Last Admin (NS Flush) 2 ml UNSCH PRN IV FLUSH 07/26/17 17:45 (NS Flush) 2 ml BID IV FLUSH 07/26/17 21:00 07/27/17 08:48 (Narcan Inj) 0.4 mg UNSCH PRN IV PUSH 07/26/17 17:45 (Duoneb Neb) 1 ampule Q6HR NEB NEB 07/26/17 22:00 07/27/17 11:19 (Duoneb Neb) 1 ampule Q2HR NEB PRN NEB 07/26/17 17:45 (SoluMEDROL INJ) 40 mg Q6HR IV PUSH 07/26/17 18:00 07/27/17 11:40 (Pepcid) 20 mg Q12HR PO 07/26/17 21:00 07/27/17 08:48 (D50w (Vial) Inj) 50 ml UNSCH PRN IV PUSH 07/26/17 17:45 (Glucagon Inj) 1 mg UNSCH PRN OTHER 07/26/17 17:45 (NovoLOG SUPPLEMENTAL SCALE) 1 ACHS SLIDING SCALE SQ 07/26/17 21:00 07/27/17 11:40 (Cogentin) 1 mg HS PO 07/26/17 21:00 07/26/17 21:07 (Singulair) 10 mg HS PO 07/26/17 21:00 07/26/17 21:07 Ceftriaxone Sodium 1000 mg/ Sodium Chloride 100 ml @ 200 mls/hr Q24H IV 07/27/17 09:00 07/27/17 08:48 (Zithromax) 500 mg DAILY PO 07/27/17 09:00 07/27/17 08:48 A/P Assessment and Plan 1. Hypoxic respiratory failure CT pulmonary angiography performed, groundglass opacity probable Pneumonitis versus True infection, was placed on admission on Lovenox 1 mg per Kilogram, Oxygen supplementation, Echocardiogram Negative bilateral leg ultrasound. continue antibiotics. follow cultures and sputum. as per patient he never smoked, probable related to Infection to continue Ceftriaxone and Azithromycin, asked for keyboard specialist consult, following blood cultures and Sputum culture, not asked for Legionella and Pneumococcal antigen on admission. bronchodilator Mucolytic and incentive spirometry. probable SHADIA and Obesity hypoventilation syndrome. 2. Sleep apnea suspected will need polysomnography as outpatient 3. Acute Kidney Injury continue IV fluids. 4. Morbid Obesity strongly recommended diet and exercise, weight loss warranted. 5. Hyperglycemia probable related to his Steroid use will titrate down DVT prophylaxis on Lovenox. GI prophylaxis on ranitidine Discharge Planning Once cleared by keyboard specialist. Sanju Castrejon MD Jul 27, 2017 14:19
[2017-07-27 15:11] LABS: HEMOGLOBIN A1C 6.2 % (4.3-6.0)
[2017-07-27 16:36] LABS: CHOLESTEROL/ HDL RATIO 3.09 RATIO; FOLATE 18.9 NG/ML (3.1-17.5); FREE T4 1.16 NG/DL (0.76-1.46); HDL CHOLESTEROL 35.5 MG/DL (40.0-60.0)
[2017-07-27] MEDS: SODIUM CHLOR 0.9% 1000 ML INJ 1,000 ML IV SCH (16:42)
[2017-07-27] MEDS ORDERED: ENOXAPARIN SODIUM 40 MG/0.4 ML SYRINGE SQ SCH (18:00)
[2017-07-27] MEDS: BENZTROPINE MESYLATE 1 MG TAB PO SCH (21:17)
[2017-07-27] MEDS: MONTELUKAST SODIUM 10 MG TAB PO SCH (21:17)
[2017-07-27] MEDS: ENOXAPARIN SODIUM 40 MG/0.4 ML SYRINGE SQ SCH (21:18)
[2017-07-28] VITALS (13 sets, daily range): BP systolic 110–138; BP diastolic 53–77; PULSE 58–89; RESP 18–24; TEMP 98.1–98.7; O2SAT 90–100
[2017-07-28] MEDS ORDERED: hydrOXYzine HCL 50 MG TAB PO ONE (00:15)
[2017-07-28] MEDS: SODIUM CHLOR 0.9% 1000 ML INJ 1,000 ML IV SCH ×2 (00:26→14:34)
[2017-07-28] MEDS: RESP: ALBUTEROL 2.5 MG/IPRATROPIUM 0.5 MG NEB (SCH) NEB ×3 (03:32→20:10)
[2017-07-28] MEDS: methylPREDNISolone SOD SUCC 40 MG/1 ML VIAL IV PUSH SCH ×2 (05:04→22:34)
[2017-07-28] MEDS: INSULIN ASPART SUPPLEMENTAL SCALE SQ SCH ×4 (08:00→22:35)
[2017-07-28] MEDS: AZITHROMYCIN 250 MG TAB PO SCH (08:03)
[2017-07-28] MEDS: cefTRIAXone INJ 1,000 MG in SODIUM CHLORIDE 0.9% INJ 100 ML IV SCH (08:03)
[2017-07-28] MEDS: FAMOTIDINE 20 MG TAB PO SCH ×2 (08:03→22:34)
[2017-07-28] MEDS: SODIUM CHLORIDE 0.9% FLUSH 10 ML FLUSH IV FLUSH SCH ×2 (08:03→22:36)
--- NOTE | 2017-07-28 08:08 | HHI.PR ---
Subjective Remarks This is a pleasant 62 y/o Male who came to ER with Shortness of breath for one month, had cough, afebrile, do not use Home Oxygen, Hypoxic in ER, he has Hypertension, history of Rectal cancer, Obesity, Possible SHADIA, stable in his bedroom, in the presence of his and nurse 07/28: Stable in his bedroom, Pulmonary consult placed, his asking for Vistaril once a day, also has Bilateral arm dyshidrosis will start Lactic acid, no nausea, vomit or diarrhea. Objective Vital Signs Date Time Temp Pulse Resp B/P (MAP) Pulse Ox O2 Delivery O2 Flow Rate FiO2 07/28/17 04:05 Simple Mask 6.00 07/28/17 04:00 98.1 77 20 120/58 (78) 90 07/28/17 04:00 90 Room Air 07/28/17 04:00 89 07/28/17 03:34 97 Simple Mask 6.00 07/28/17 00:00 Simple Mask 6.00 07/28/17 00:00 58 07/27/17 23:43 98.2 61 26 110/62 (78) 98 07/27/17 20:02 Simple Mask 6.00 07/27/17 20:01 98.8 63 22 101/56 (71) 94 07/27/17 20:00 53 07/27/17 16:38 95 Nasal Cannula 6.00 07/27/17 16:15 98.4 58 19 115/66 (82) 97 07/27/17 15:00 57 07/27/17 12:57 98.4 58 19 115/66 (82) 97 07/27/17 12:50 07/27/17 12:30 53 24 104/64 (77) 95 Simple Mask 6.00 07/27/17 11:21 95 Simple Mask 8.00 07/27/17 08:22 51 24 92/53 (66) 96 Simple Mask 9.00 I/O 07/27/17 07/27/17 07/27/17 07/28/17 07/28/17 07/28/17 07:00 15:00 23:00 07:00 15:00 23:00 Intake Total 240 ml 1200 ml Output Total 200 ml Balance 40 ml 1200 ml Intake Oral 240 ml 1200 ml Output Urine Total 200 ml # Voids 4 # Bowel Movements 0 1 Result Diagram: 07/27/17 0759 07/27/17 0759 Imaging Last Impressions Chest X-Ray 07/26/17 1518 Signed Impressions: Service Date/Time: Wednesday, July 26, 2017 15:51 - CONCLUSION: 1. Mild edema pattern. Can't exclude infectious infiltrate. No significant effusion. No pneumothorax. Gulshan Gandara MD Lower Extremity Ultrasound 07/26/17 0000 Signed Impressions: Service Date/Time: Wednesday, July 26, 2017 19:51 - CONCLUSION: 1. Negative for deep venous thrombosis. Gulshan Gandara MD CT Angiography 07/26/17 0000 Signed Impressions: Service Date/Time: Wednesday, July 26, 2017 20:21 - CONCLUSION: 1. Negative pulmonary embolus. 2. Diffuse patchy groundglass opacity in both lungs more severe in upper lobes. Differential diagnosis includes infection and hypersensitivity type reaction. Gulshan Gandara MD Procedures None Other Results Laboratory Tests Test 07/26/17 15:09 07/26/17 19:42 07/27/17 01:20 07/27/17 07:59 Prothrombin Time 13.4 SEC Prothromb Time International Ratio 1.3 RATIO Activated Partial Thromboplast Time 32.0 SEC Hemoglobin A1c 6.2 % Blood Urea Nitrogen 11 MG/DL 14 MG/DL Creatinine 1.54 MG/DL 1.42 MG/DL Random Glucose 88 MG/DL 140 MG/DL Total Protein 9.1 GM/DL Albumin 2.7 GM/DL Calcium Level 8.3 MG/DL 8.6 MG/DL Alkaline Phosphatase 115 U/L Aspartate Amino Transf (AST/SGOT) 34 U/L Alanine Aminotransferase (ALT/SGPT) 17 U/L Total Bilirubin 0.7 MG/DL Sodium Level 135 MEQ/L 133 MEQ/L Potassium Level 3.9 MEQ/L 4.6 MEQ/L Chloride Level 99 MEQ/L 98 MEQ/L Carbon Dioxide Level 27.8 MEQ/L 25.6 MEQ/L Total Creatine Kinase 135 U/L Creatine Kinase MB LESS THAN 0.5 NG/ML Troponin I LESS THAN 0.02 NG/ML B-Type Natriuretic Peptide 6 PG/ML Urine Color YELLOW Urine Turbidity CLEAR Urine pH 5.5 Urine Specific [place] 1.012 Urine Protein TRACE mg/dL Urine Glucose (UA) NEG mg/dL Urine Ketones TRACE mg/dL Urine Occult Blood NEG Urine Nitrite NEG Urine Bilirubin NEG Urine Urobilinogen LESS THAN 2.0 MG/DL Urine Leukocyte Esterase NEG Urine RBC LESS THAN 1 /hpf Urine WBC 2 /hpf Urine Squamous Epithelial Cells <1 /hpf Microscopic Urinalysis Comment CULT NOT INDICATED D-Dimer Quantitative (PE/DVT) 1.53 MG/L FEU White Blood Count 8.2 TH/MM3 Red Blood Count 4.95 MIL/MM3 Hemoglobin 14.9 GM/DL Hematocrit 44.3 % Mean Corpuscular Volume 89.4 FL Mean Corpuscular Hemoglobin 30.1 PG Mean Corpuscular Hemoglobin Concent 33.7 % Red Cell Distribution Width 15.1 % Platelet Count 191 TH/MM3 Mean Platelet Volume 7.7 FL Neutrophils (%) (Auto) 90.3 % Lymphocytes (%) (Auto) 7.8 % Monocytes (%) (Auto) 1.6 % Eosinophils (%) (Auto) 0.1 % Basophils (%) (Auto) 0.2 % Neutrophils # (Auto) 7.4 TH/MM3 Lymphocytes # (Auto) 0.6 TH/MM3 Monocytes # (Auto) 0.1 TH/MM3 Eosinophils # (Auto) 0.0 TH/MM3 Basophils # (Auto) 0.0 TH/MM3 CBC Comment DIFF FINAL Differential Comment Anion Gap 9 MEQ/L Estimat Glomerular Filtration Rate 51 ML/MIN Triglycerides Level 66 MG/DL Cholesterol Level 110 MG/DL LDL Cholesterol 61 MG/DL HDL Cholesterol 35.5 MG/DL Cholesterol/HDL Ratio 3.09 RATIO Vitamin B12 Level 678 PG/ML Folate 18.9 NG/ML Free Thyroxine 1.16 NG/DL Thyroid Stimulating Hormone 3rd Gen 1.010 uIU/ML Objective Remarks GENERAL: Morbid obesity. SKIN: dry skin with occasional scabs, dyshidrosis on bilateral arms. HEAD: Atraumatic. Normocephalic. No temporal or scalp tenderness. EYES: No scleral icterus. No injection or drainage. ENT: Nose without bleeding, purulent drainage or septal hematoma. Airway patent. NECK: Trachea midline. No JVD . Supple, nontender, no meningeal signs. CARDIOVASCULAR: Regular rate and rhythm without murmurs, gallops, or rubs. RESPIRATORY: Bilaterally decreased air entry. Tight air entry. No dolly rales. GASTROINTESTINAL: Abdomen soft, non-tender, nondistended. No guarding. obese, no suprapubic tenderness MUSCULOSKELETAL: Extremities without clubbing, cyanosis. No calf tenderness. Bilateral lower extremity nonpitting edema. More of obesity. NEUROLOGICAL: Awake and alert.. Motor and sensory grossly within normal limits. Normal speech. Medications and IVs Current Medications Medications (Trade) Dose Ordered Sig/Kenzie Route Start Time Stop Time Status Last Admin (NS Flush) 2 ml UNSCH PRN IV FLUSH 07/26/17 17:45 (NS Flush) 2 ml BID IV FLUSH 07/26/17 21:00 07/28/17 08:03 (Narcan Inj) 0.4 mg UNSCH PRN IV PUSH 07/26/17 17:45 (Duoneb Neb) 1 ampule Q6HR NEB NEB 07/26/17 22:00 07/28/17 03:32 (Duoneb Neb) 1 ampule Q2HR NEB PRN NEB 07/26/17 17:45 (SoluMEDROL INJ) 40 mg Q6HR IV PUSH 07/26/17 18:00 07/28/17 05:04 (Pepcid) 20 mg Q12HR PO 07/26/17 21:00 07/28/17 08:03 (D50w (Vial) Inj) 50 ml UNSCH PRN IV PUSH 07/26/17 17:45 (Glucagon Inj) 1 mg UNSCH PRN OTHER 07/26/17 17:45 (NovoLOG SUPPLEMENTAL SCALE) 1 ACHS SLIDING SCALE SQ 07/26/17 21:00 07/27/17 21:19 (Cogentin) 1 mg HS PO 07/26/17 21:00 07/27/17 21:17 (Singulair) 10 mg HS PO 07/26/17 21:00 07/27/17 21:17 Ceftriaxone Sodium 1000 mg/ Sodium Chloride 100 ml @ 200 mls/hr Q24H IV 07/27/17 09:00 07/28/17 08:03 (Zithromax) 500 mg DAILY PO 07/27/17 09:00 07/28/17 08:03 Sodium Chloride 1,000 ml @ 100 mls/hr Q10H IV 07/27/17 14:30 07/28/17 00:26 (Lovenox Inj) 40 mg Q24H SQ 07/27/17 20:00 07/27/17 21:18 A/P Assessment and Plan 1. Hypoxic respiratory failure CT pulmonary angiography performed, groundglass opacity probable Pneumonitis versus True infection, was placed on admission on Lovenox 1 mg per Kilogram, Oxygen supplementation, Echocardiogram Negative bilateral leg ultrasound. continue antibiotics. follow cultures and sputum. as per patient he never smoked, probable related to Infection to continue Ceftriaxone and Azithromycin, asked for legal service specialist consult, following blood cultures and Sputum culture, not asked for Legionella and Pneumococcal antigen on admission. bronchodilator Mucolytic and incentive spirometry. probable SHADIA and Obesity hypoventilation syndrome. ruled out PE. 2. Sleep apnea suspected will need polysomnography as outpatient 3. Acute Kidney Injury continue IV fluids. asked for new BMP and following. 4. Morbid Obesity strongly recommended diet and exercise, weight loss warranted. 5. Hyperglycemia probable related to his Steroid use will titrate down Follow BMP today decreased IV fluids to 42 ml/min while awaiting for BMP follow legal service specialist recommendations. DVT prophylaxis on Lovenox. GI prophylaxis on ranitidine Discharge Planning Once cleared by legal service specialist. Sanju Castrejon MD Jul 28, 2017 08:08
[2017-07-28] MEDS ORDERED: hydrOXYzine PAMOATE 25 MG CAP PO PRN (10:15)
[2017-07-28 11:29] LABS: BICARBONATE 21.5 MEQ/L (21.0-32.0); CALCIUM 8.3 MG/DL (8.5-10.1); CREATININE 1.33 MG/DL (0.60-1.30)
[2017-07-28] MEDS ORDERED: RESP: ALBUTEROL 2.5 MG/IPRATROPIUM 0.5 MG NEB (SCH) NEB (12:00)
--- NOTE | 2017-07-28 12:57 | MB ---
cc: Ambrocio CARLSON DATE OF CONSULTATION 07/28/2017 HISTORY Mr. Fox is a 62-year-old white male who presented with fatigue, shortness of breath and a referral from his primary care physician for evaluation. The patient is morbidly obese, admits to being very sedentary, spends most of the day in bed or a chair and has done this for about the last year because he is "lazy". There was no other medical indication. He had no trauma, was in no pain, he is just not all that mobile. Over the course of the last few months, he has just been more tired, more sleepy, more short of breath. He has also developed a cough which is generally nonproductive, but occasionally has purulent sputum. He had no hemoptysis. He is not a former smoker. He has had no significant prior pulmonary disease and he has had no history of thromboembolic disease. As part of his initial evaluation in the emergency room, he had a CTA which was negative for pulmonary embolism, but he did have some diffuse ground glass densities in both lungs. Precise etiology unclear. He also had very significant lower extremity edema and was hypoxic on room air. The patient denies any illicit drug use, any inhalation of drugs or tobacco, does have seven dogs at home, but no other animal exposures. No other hobbies that involve exposure to fumes, dust or gasses. ADDITIONAL PAST HISTORY He was hospitalized here with acute pancreatitis in February 2016 at which time he had a cholecystectomy for stones. One other surgery in 2012 for cancer of the rectum followed by chemotherapy and radiation therapy. The last follow-up visit for that was a year ago at which time there was no evidence of recurrence. PAST MEDICAL HISTORY 1. May have had hypertension, but never treated. 2. "Borderline" diabetes, again no treatment 3. He has never been sleep evaluated. ALLERGIES None known. CURRENT MEDICATIONS He has been on: 1. Methylprednisolone 2. Aerosol treatments 3. Lovenox 4. Rocephin 5. Zithromax 6. Pepcid 7. Singulair SOCIAL HISTORY living with his . No children, six dogs at home. Denies excessive alcohol. FAMILY HISTORY Mother of congestive heart failure. Father of leukemia. PHYSICAL EXAMINATION This is a very obese white male, very comfortable at rest, O2 sats currently on a simple facemask 95-96%. He has been afebrile. Blood pressure is 129/77, pulse is 70 and regular, respirations 18. HEAD, EYES, EARS, NOSE, AND THROAT: Sclerae anicteric. NECK: Neck veins are not distended although he has a very large neck. No palpable adenopathy in the neck or supraclavicular region. CHEST: Diminished due to his size, but no wheezes or rales are noted. No harsh murmur is audible. ABDOMEN: Extremely obese. He has 1+ peripheral edema which he says is a marked improvement compared to admission. DISCUSSION Mr. Fox presents with ground-glass infiltrates in his lung of unclear etiology. He was apparently quite edematous as well on presentation and says his legs were down. This certainly could be fluid. Really not much to suggest an ongoing active infection at least symptomatically and his white count is normal. He has been afebrile. Given his size and supine positioning most of the time, he could certainly be aspirating, but again clinically that is a low suspicion based on no symptoms, although it certainly can occur without symptoms. He is responding well to the current therapy. I have ordered blood gases, some lab work, and a followup chest x-ray. Further diagnostic and/or therapeutic intervention will depend on his response and ongoing clinical course. Also would be interested to see with the echocardiogram shows. R. MD CAN Coto/YAJAIRA /12:37 PM /12:44 PM
[2017-07-28] MEDS: guaiFENesin E.R. 600 MG TAB PO SCH ×2 (14:32→22:34)
[2017-07-28] MEDS: LACTIC ACID (AMMONIUM LACTATE) 12% LOTION 225 GM BTL TOPICAL SCH ×2 (14:32→22:35)
--- NOTE | 2017-07-28 18:14 | ECHRPT ---
Indication: HEART FAILURE CONCLUSIONS Mildly dilated left ventricle. Wall thickness is normal. The left ventricular systolic function is normal with an estimated ejection fraction in the range of 60-65%. BP: 101 / 58 HR: 53 Rhythm: MEASUREMENTS (Male / Female) Normal Values Technical Quality:Technically difficult study 2D ECHO LV Diastolic Diameter PLAX 5.4 cm 4.2 - 5.9 / 3.9 - 5.3 cm LV Systolic Diameter PLAX 3.7 cm IVS Diastolic Thickness 0.7 cm 0.6 - 1.0 / 0.6 - 0.9 cm LVPW Diastolic Thickness 0.8 cm 0.6 - 1.0 / 0.6 - 0.9 cm LV Relative Wall Thickness 0.3 RV Internal Dim ED PLAX 2.0 cm DOPPLER Mitral E Point Velocity 91.3 cm/s Mitral A Point Velocity 57.3 cm/s Mitral E to A Ratio 1.6 TR Peak Velocity 137.0 cm/s TR Peak Gradient 7.5 mmHg FINDINGS LEFT VENTRICLE Mildly dilated left ventricle. Wall thickness is normal. The left ventricular systolic function is normal with an estimated ejection fraction in the range of 60-65%. RIGHT VENTRICLE Normal right ventricular size and systolic function. LEFT ATRIUM The left atrial size is normal. RIGHT ATRIUM The right atrial size is normal. ATRIAL SEPTUM Normal atrial septal thickness without atrial level shunting by limited color doppler interrogation. AORTA The aortic root and proximal ascending aorta are normal in size on limited imaging. MITRAL VALVE Structurally normal mitral valve. No mitral valve stenosis or regurgitation. AORTIC VALVE Trileaflet aortic valve. No aortic valve stenosis or regurgitation. TRICUSPID VALVE Structurally normal tricuspid valve. No tricuspid valve stenosis or regurgitation. PULMONARY VALVE The pulmonary valve is not well visualized. VESSELS The inferior vena cava is normal in size. PERICARDIUM No pericardial effusion. Maximiliano Lauren MD (Electronically Signed) Final Date:28 July 2017 18:13
[2017-07-28] MEDS: ENOXAPARIN SODIUM 40 MG/0.4 ML SYRINGE SQ SCH (22:33)
[2017-07-28] MEDS: BENZTROPINE MESYLATE 1 MG TAB PO SCH (22:34)
[2017-07-28] MEDS: MONTELUKAST SODIUM 10 MG TAB PO SCH (22:34)
[2017-07-29] VITALS (13 sets, daily range): BP systolic 113–138; BP diastolic 56–87; PULSE 54–81; RESP 18–24; TEMP 97.6–98.2; O2SAT 94–98
[2017-07-29] MEDS: RESP: ALBUTEROL 2.5 MG/IPRATROPIUM 0.5 MG NEB (SCH) NEB ×3 (07:22→19:38)
[2017-07-29] MEDS: INSULIN ASPART SUPPLEMENTAL SCALE SQ SCH ×4 (07:42→20:57)
--- NOTE | 2017-07-29 08:00 | HHI.PR ---
Subjective Remarks This is a pleasant 62 y/o Male who came to ER with Shortness of breath for one month, had cough, afebrile, do not use Home Oxygen, Hypoxic in ER, he has Hypertension, history of Rectal cancer, Obesity, Possible SHADIA, stable in his bedroom, in the presence of his and nurse 07/28: Stable in his bedroom, Pulmonary consult placed, his asking for Vistaril once a day, also has Bilateral arm dyshidrosis will start Lactic acid. 07/29: payroll accounting specialist following, recommended laboratory and CXR for follow up and Echocardiogram EF 60-65%. no signs of CHF, Mild increase in Brain natriuretic peptide, may have some early Diastolic dysfunction, has morbid Obesity and probable Obstructive Sleep Apnea, receiving antibiotics. payroll accounting specialist following improving condition, discussed with him and his about Weight loss warranted. Objective Vital Signs Date Time Temp Pulse Resp B/P (MAP) Pulse Ox O2 Delivery O2 Flow Rate FiO2 07/29/17 07:27 98 Simple Mask 6.00 07/29/17 05:37 97.6 66 24 137/86 (103) 98 07/29/17 04:00 64 07/29/17 04:00 Simple Mask 4.00 07/29/17 02:00 Room Air 07/29/17 00:00 60 07/28/17 23:00 98.3 69 24 129/75 (93) 97 07/28/17 21:37 98.7 76 24 110/58 (75) 96 07/28/17 20:13 96 Simple Mask 6.00 07/28/17 20:00 82 07/28/17 20:00 Simple Mask 6.00 07/28/17 16:00 98.2 69 18 119/69 (86) 100 07/28/17 16:00 Simple Mask 6.00 07/28/17 15:53 69 07/28/17 12:00 Simple Mask 6.00 07/28/17 12:00 98.7 86 20 138/53 (81) 93 07/28/17 09:28 96 Simple Mask 6.00 07/28/17 08:00 98.4 70 18 129/77 (94) 95 07/28/17 08:00 Simple Mask 6.00 I/O 07/28/17 07/28/17 07/28/17 07/29/17 07/29/1718 07:00 15:00 23:00 07:00 15:00 23:00 Intake Total 1200 ml 960 ml 720 ml Output Total 450 ml 600 ml Balance 1200 ml 510 ml 120 ml Intake Oral 1200 ml 960 ml 720 ml Output Urine Total 450 ml 600 ml # Voids 4 # Bowel Movements 1 1 0 Result Diagram: 07/27/17 0759 07/28/17 1054 Imaging Last Impressions Chest X-Ray 07/26/17 1518 Signed Impressions: Service Date/Time: Wednesday, July 26, 2017 15:51 - CONCLUSION: 1. Mild edema pattern. Can't exclude infectious infiltrate. No significant effusion. No pneumothorax. Gulshan Gandara MD Lower Extremity Ultrasound 07/26/17 0000 Signed Impressions: Service Date/Time: Wednesday, July 26, 2017 19:51 - CONCLUSION: 1. Negative for deep venous thrombosis. Gulshan Gandara MD CT Angiography 07/26/17 0000 Signed Impressions: Service Date/Time: Wednesday, July 26, 2017 20:21 - CONCLUSION: 1. Negative pulmonary embolus. 2. Diffuse patchy groundglass opacity in both lungs more severe in upper lobes. Differential diagnosis includes infection and hypersensitivity type reaction. Gulshan Gandara MD Procedures None Other Results Laboratory Tests Test 07/26/17 15:09 07/26/17 19:42 07/27/17 01:20 07/27/17 07:59 Prothrombin Time 13.4 SEC Prothromb Time International Ratio 1.3 RATIO Activated Partial Thromboplast Time 32.0 SEC Hemoglobin A1c 6.2 % Blood Urea Nitrogen 11 MG/DL Creatinine 1.54 MG/DL Random Glucose 88 MG/DL Total Protein 9.1 GM/DL Albumin 2.7 GM/DL Calcium Level 8.3 MG/DL Alkaline Phosphatase 115 U/L Aspartate Amino Transf (AST/SGOT) 34 U/L Alanine Aminotransferase (ALT/SGPT) 17 U/L Total Bilirubin 0.7 MG/DL Sodium Level 135 MEQ/L Potassium Level 3.9 MEQ/L Chloride Level 99 MEQ/L Carbon Dioxide Level 27.8 MEQ/L Total Creatine Kinase 135 U/L Creatine Kinase MB LESS THAN 0.5 NG/ML Troponin I LESS THAN 0.02 NG/ML Urine Color YELLOW Urine Turbidity CLEAR Urine pH 5.5 Urine Specific [place] 1.012 Urine Protein TRACE mg/dL Urine Glucose (UA) NEG mg/dL Urine Ketones TRACE mg/dL Urine Occult Blood NEG Urine Nitrite NEG Urine Bilirubin NEG Urine Urobilinogen LESS THAN 2.0 MG/DL Urine Leukocyte Esterase NEG Urine RBC LESS THAN 1 /hpf Urine WBC 2 /hpf Urine Squamous Epithelial Cells <1 /hpf Microscopic Urinalysis Comment CULT NOT INDICATED D-Dimer Quantitative (PE/DVT) 1.53 MG/L FEU White Blood Count 8.2 TH/MM3 Red Blood Count 4.95 MIL/MM3 Hemoglobin 14.9 GM/DL Hematocrit 44.3 % Mean Corpuscular Volume 89.4 FL Mean Corpuscular Hemoglobin 30.1 PG Mean Corpuscular Hemoglobin Concent 33.7 % Red Cell Distribution Width 15.1 % Platelet Count 191 TH/MM3 Mean Platelet Volume 7.7 FL Neutrophils (%) (Auto) 90.3 % Lymphocytes (%) (Auto) 7.8 % Monocytes (%) (Auto) 1.6 % Eosinophils (%) (Auto) 0.1 % Basophils (%) (Auto) 0.2 % Neutrophils # (Auto) 7.4 TH/MM3 Lymphocytes # (Auto) 0.6 TH/MM3 Monocytes # (Auto) 0.1 TH/MM3 Eosinophils # (Auto) 0.0 TH/MM3 Basophils # (Auto) 0.0 TH/MM3 CBC Comment DIFF FINAL Differential Comment Triglycerides Level 66 MG/DL Cholesterol Level 110 MG/DL LDL Cholesterol 61 MG/DL HDL Cholesterol 35.5 MG/DL Cholesterol/HDL Ratio 3.09 RATIO Vitamin B12 Level 678 PG/ML Folate 18.9 NG/ML Free Thyroxine 1.16 NG/DL Thyroid Stimulating Hormone 3rd Gen 1.010 uIU/ML Test 07/28/17 10:54 07/28/17 13:43 07/28/17 14:54 Blood Urea Nitrogen 23 MG/DL Creatinine 1.33 MG/DL Random Glucose 206 MG/DL Calcium Level 8.3 MG/DL Sodium Level 134 MEQ/L Potassium Level 5.0 MEQ/L Chloride Level 102 MEQ/L Carbon Dioxide Level 21.5 MEQ/L Anion Gap 11 MEQ/L Estimat Glomerular Filtration Rate 55 ML/MIN C-Reactive Protein 2.30 MG/DL B-Type Natriuretic Peptide 240 PG/ML Blood Gas Puncture Site LT RADIAL Blood Gas Patient Temperature 98.6 Blood Gas HCO3 24 mmol/L Blood Gas Base Excess -0.9 mmol/L Blood Gas Oxygen Saturation 97 % Arterial Blood pH 7.37 Arterial Blood Partial Pressure CO2 42 mmHg Arterial Blood Partial Pressure O2 141 mmHg Arterial Blood Oxygen Content 18.3 Vol % Arterial Blood Carboxyhemoglobin 1.4 % Arterial Blood Methemoglobin 0.8 % Blood Gas Hemoglobin 13.2 G/DL Oxygen Delivery Device Blood Gas Liter Flow 4 L/M Objective Remarks GENERAL: Morbid obesity. SKIN: dry skin with occasional scabs, dyshidrosis on bilateral arms. HEAD: Atraumatic. Normocephalic. No temporal or scalp tenderness. EYES: No scleral icterus. No injection or drainage. ENT: Nose without bleeding, purulent drainage or septal hematoma. Airway patent. NECK: Trachea midline. No JVD . Supple, nontender, no meningeal signs. CARDIOVASCULAR: Regular rate and rhythm without murmurs, gallops, or rubs. RESPIRATORY: Decreased breath sounds bilateral, no wheezing or crackles. GASTROINTESTINAL: Abdomen soft, non-tender, nondistended. No guarding. obese, no suprapubic tenderness MUSCULOSKELETAL: Extremities without clubbing, cyanosis. NEUROLOGICAL: Awake and alert. No focal deficits. Medications and IVs Current Medications Medications (Trade) Dose Ordered Sig/Kenzie Route Start Time Stop Time Status Last Admin (NS Flush) 2 ml UNSCH PRN IV FLUSH 07/26/17 17:45 (NS Flush) 2 ml BID IV FLUSH 07/26/17 21:00 07/28/17 22:36 (Narcan Inj) 0.4 mg UNSCH PRN IV PUSH 07/26/17 17:45 (Duoneb Neb) 1 ampule Q2HR NEB PRN NEB 07/26/17 17:45 (Pepcid) 20 mg Q12HR PO 07/26/17 21:00 07/28/17 22:34 (D50w (Vial) Inj) 50 ml UNSCH PRN IV PUSH 07/26/17 17:45 (Glucagon Inj) 1 mg UNSCH PRN OTHER 07/26/17 17:45 (NovoLOG SUPPLEMENTAL SCALE) 1 ACHS SLIDING SCALE SQ 07/26/17 21:00 07/28/17 22:35 (Cogentin) 1 mg HS PO 07/26/17 21:00 07/28/17 22:34 (Singulair) 10 mg HS PO 07/26/17 21:00 07/28/17 22:34 Ceftriaxone Sodium 1000 mg/ Sodium Chloride 100 ml @ 200 mls/hr Q24H IV 07/27/17 09:00 07/28/17 08:03 (Zithromax) 500 mg DAILY PO 07/27/17 09:00 07/28/17 08:03 Sodium Chloride 1,000 ml @ 42 mls/hr [id number] IV 07/27/17 14:30 07/28/17 14:34 (Lovenox Inj) 40 mg Q24H SQ 07/27/17 20:00 07/28/17 22:33 (Mucinex Er) 600 mg BID PO 07/28/17 11:00 07/28/17 22:34 (Vistaril) 25 mg DAILY PRN PO 07/28/17 10:15 (Lac-Hydrin 12% Lotion) 1 applic BID TOPICAL 07/28/17 11:00 07/28/17 22:35 (Duoneb Neb) 1 ampule TID NEB NEB 07/28/17 14:00 07/29/17 07:22 (SoluMEDROL INJ) 40 mg BID IV PUSH 07/28/17 21:00 07/28/17 22:34 A/P Assessment and Plan 1. Hypoxic respiratory failure CT pulmonary angiography performed, groundglass opacity probable Pneumonitis versus True infection, was placed on admission on Lovenox 1 mg per Kilogram, Oxygen supplementation, Echocardiogram with EF 60%. Negative bilateral leg ultrasound. continue antibiotics. follow cultures and sputum. as per patient he never smoked, probable related to Infection to continue Ceftriaxone and Azithromycin, asked for payroll accounting specialist consult, following blood cultures and Sputum culture, not asked for Legionella and Pneumococcal antigen on admission. bronchodilator Mucolytic and incentive spirometry. probable SHADIA and Obesity hypoventilation syndrome. ruled out PE. Improving on Actual Management. 2. Sleep apnea suspected will need polysomnography as outpatient 3. Acute Kidney Injury continue IV fluids. asked for new BMP and following. 4. Morbid Obesity strongly recommended diet and exercise, weight loss warranted. 5. Hyperglycemia probable related to his Steroid use will titrate down, continue Sliding scale. DVT prophylaxis on Lovenox. GI prophylaxis on ranitidine Discharge Planning Once cleared by payroll accounting specialist. Sanju Castrejon MD Jul 29, 2017 08:00
[2017-07-29] MEDS: LACTIC ACID (AMMONIUM LACTATE) 12% LOTION 225 GM BTL TOPICAL SCH ×2 (08:12→20:56)
[2017-07-29] MEDS: SODIUM CHLORIDE 0.9% FLUSH 10 ML FLUSH IV FLUSH SCH ×2 (08:13→20:56)
[2017-07-29] MEDS: methylPREDNISolone SOD SUCC 40 MG/1 ML VIAL IV PUSH SCH (08:13)
[2017-07-29] MEDS: cefTRIAXone INJ 1,000 MG in SODIUM CHLORIDE 0.9% INJ 100 ML IV SCH (08:14)
[2017-07-29] MEDS: FAMOTIDINE 20 MG TAB PO SCH ×2 (08:14→20:56)
[2017-07-29] MEDS: AZITHROMYCIN 250 MG TAB PO SCH (08:14)
[2017-07-29] MEDS: guaiFENesin E.R. 600 MG TAB PO SCH ×2 (08:14→20:56)
--- NOTE | 2017-07-29 08:48 | RADRPT ---
EXAM DATE/TIME: 07/29/2017 08:00 [facility] COMPARISON: CT PULMONARY ANGIOGRAM, July 26, 2017, 20:21. CHEST SINGLE AP, July 26, 2017, 15:51. INDICATIONS : Coughing and short of breath MEDICAL HISTORY : Congestive heart failure. Hypertension SURGICAL HISTORY : None. ENCOUNTER: Subsequent ACUITY: 2 days PAIN SCORE: 0/10 LOCATION: Bilateral chest FINDINGS: The heart is normal in size. There is no pleural effusion. The mediastinal contours are within normal limits. The patchy infiltrates which were seen on the previous CT of 07/26/17 are not identified by c hest x-ray. The osseous structures are grossly intact. CONCLUSION: 1. No acute abnormality. The patchy infiltrates seen on 07/26/17 are not identified. Dheeraj Mclaughlin MD on July 29, 2017 at 8:28 Board Certified Radiologist. This report was verified electronically.
[2017-07-29] MEDS: SODIUM CHLOR 0.9% 1000 ML INJ 1,000 ML IV SCH (14:20)
[2017-07-29] MEDS: MONTELUKAST SODIUM 10 MG TAB PO SCH (20:56)
[2017-07-29] MEDS: ENOXAPARIN SODIUM 40 MG/0.4 ML SYRINGE SQ SCH (20:56)
[2017-07-29] MEDS: BENZTROPINE MESYLATE 1 MG TAB PO SCH (20:56)
[2017-07-30] VITALS (7 sets, daily range): BP systolic 112–140; BP diastolic 61–88; PULSE 48–104; RESP 18–24; TEMP 97.5–99.7; O2SAT 93–96
[2017-07-30] MEDS: RESP: ALBUTEROL 2.5 MG/IPRATROPIUM 0.5 MG NEB (SCH) NEB (07:59)
[2017-07-30] MEDS: INSULIN ASPART SUPPLEMENTAL SCALE SQ SCH ×2 (08:00→12:00)
--- NOTE | 2017-07-30 08:03 | HHI.PR ---
Subjective Remarks This is a pleasant 62 y/o Male who came to ER with Shortness of breath for one month, had cough, afebrile, do not use Home Oxygen, Hypoxic in ER, he has Hypertension, history of Rectal cancer, Obesity, Possible SHADIA, stable in his bedroom, in the presence of his and nurse 07/28: Stable in his bedroom, Pulmonary consult placed, his asking for Vistaril once a day, also has Bilateral arm dyshidrosis will start Lactic acid. 07/29: dermatology specialist following, recommended laboratory and CXR for follow up and Echocardiogram EF 60-65%. no signs of CHF, Mild increase in Brain natriuretic peptide, may have some early Diastolic dysfunction, has morbid Obesity and probable Obstructive Sleep Apnea, receiving antibiotics. dermatology specialist following improving condition, discussed with him and his about Weight loss warranted. 07/30: Seen in his bedroom today walking in the aisle, breathing with nasal Cannula 2 L/min oxygen, no nausea, vomit or diarrhea discussed with doctor Feliciano singletary to discharge patient home with Home oxygen arranged. continue antibiotics for five days Steroids titrated dosages and Symbicort and Spiriva. Objective Vital Signs Date Time Temp Pulse Resp B/P (MAP) Pulse Ox O2 Delivery O2 Flow Rate FiO2 07/30/17 04:00 48 07/30/17 04:00 98.2 55 24 121/69 (86) 93 07/30/17 00:25 98.6 59 24 112/61 (78) 94 07/30/17 00:00 54 07/29/17 20:00 68 07/29/17 20:00 Simple Mask 4.00 07/29/17 19:47 98.2 65 24 113/69 (84) 97 07/29/17 19:38 95 Nasal Cannula 2.00 07/29/17 16:11 65 07/29/17 16:00 98.0 54 18 131/70 (90) 94 07/29/17 13:31 96 Nasal Cannula 2.00 07/29/17 12:04 64 07/29/17 12:00 Simple Mask 4.00 07/29/17 12:00 97.7 74 18 122/56 (78) 96 I/O 07/29/17 07/29/17 07/29/17 07/30/17 07/30/17 07/30/17 07:00 15:00 23:00 07:00 15:00 23:00 Intake Total 720 ml 720 ml 1026 ml Output Total 600 ml Balance 120 ml 720 ml 1026 ml Intake Oral 720 ml 720 ml 480 ml IV Total 546 ml Output Urine Total 600 ml # Voids 6 5 # Bowel Movements 0 1 0 Result Diagram: 07/27/17 0759 07/28/17 1054 Imaging Last Impressions Chest X-Ray 07/29/17 0800 Signed Impressions: Service Date/Time: Saturday, July 29, 2017 08:00 - CONCLUSION: 1. No acute abnormality. The patchy infiltrates seen on 07/26/17 are not identified. Dheeraj Mclaughlin MD Lower Extremity Ultrasound 07/26/17 0000 Signed Impressions: Service Date/Time: Wednesday, July 26, 2017 19:51 - CONCLUSION: 1. Negative for deep venous thrombosis. Gulshan Gandara MD CT Angiography 07/26/17 0000 Signed Impressions: Service Date/Time: Wednesday, July 26, 2017 20:21 - CONCLUSION: 1. Negative pulmonary embolus. 2. Diffuse patchy groundglass opacity in both lungs more severe in upper lobes. Differential diagnosis includes infection and hypersensitivity type reaction. Gulshan Gandara MD Procedures None Other Results Laboratory Tests Test 07/26/17 15:09 07/26/17 19:42 07/27/17 01:20 07/27/17 07:59 Prothrombin Time 13.4 SEC Prothromb Time International Ratio 1.3 RATIO Activated Partial Thromboplast Time 32.0 SEC Hemoglobin A1c 6.2 % Blood Urea Nitrogen 11 MG/DL Creatinine 1.54 MG/DL Random Glucose 88 MG/DL Total Protein 9.1 GM/DL Albumin 2.7 GM/DL Calcium Level 8.3 MG/DL Alkaline Phosphatase 115 U/L Aspartate Amino Transf (AST/SGOT) 34 U/L Alanine Aminotransferase (ALT/SGPT) 17 U/L Total Bilirubin 0.7 MG/DL Sodium Level 135 MEQ/L Potassium Level 3.9 MEQ/L Chloride Level 99 MEQ/L Carbon Dioxide Level 27.8 MEQ/L Total Creatine Kinase 135 U/L Creatine Kinase MB LESS THAN 0.5 NG/ML Troponin I LESS THAN 0.02 NG/ML Urine Color YELLOW Urine Turbidity CLEAR Urine pH 5.5 Urine Specific [place] 1.012 Urine Protein TRACE mg/dL Urine Glucose (UA) NEG mg/dL Urine Ketones TRACE mg/dL Urine Occult Blood NEG Urine Nitrite NEG Urine Bilirubin NEG Urine Urobilinogen LESS THAN 2.0 MG/DL Urine Leukocyte Esterase NEG Urine RBC LESS THAN 1 /hpf Urine WBC 2 /hpf Urine Squamous Epithelial Cells <1 /hpf Microscopic Urinalysis Comment CULT NOT INDICATED D-Dimer Quantitative (PE/DVT) 1.53 MG/L FEU White Blood Count 8.2 TH/MM3 Red Blood Count 4.95 MIL/MM3 Hemoglobin 14.9 GM/DL Hematocrit 44.3 % Mean Corpuscular Volume 89.4 FL Mean Corpuscular Hemoglobin 30.1 PG Mean Corpuscular Hemoglobin Concent 33.7 % Red Cell Distribution Width 15.1 % Platelet Count 191 TH/MM3 Mean Platelet Volume 7.7 FL Neutrophils (%) (Auto) 90.3 % Lymphocytes (%) (Auto) 7.8 % Monocytes (%) (Auto) 1.6 % Eosinophils (%) (Auto) 0.1 % Basophils (%) (Auto) 0.2 % Neutrophils # (Auto) 7.4 TH/MM3 Lymphocytes # (Auto) 0.6 TH/MM3 Monocytes # (Auto) 0.1 TH/MM3 Eosinophils # (Auto) 0.0 TH/MM3 Basophils # (Auto) 0.0 TH/MM3 CBC Comment DIFF FINAL Differential Comment Triglycerides Level 66 MG/DL Cholesterol Level 110 MG/DL LDL Cholesterol 61 MG/DL HDL Cholesterol 35.5 MG/DL Cholesterol/HDL Ratio 3.09 RATIO Vitamin B12 Level 678 PG/ML Folate 18.9 NG/ML Free Thyroxine 1.16 NG/DL Thyroid Stimulating Hormone 3rd Gen 1.010 uIU/ML Test 07/28/17 10:54 07/28/17 13:43 07/28/17 14:54 Blood Urea Nitrogen 23 MG/DL Creatinine 1.33 MG/DL Random Glucose 206 MG/DL Calcium Level 8.3 MG/DL Sodium Level 134 MEQ/L Potassium Level 5.0 MEQ/L Chloride Level 102 MEQ/L Carbon Dioxide Level 21.5 MEQ/L Anion Gap 11 MEQ/L Estimat Glomerular Filtration Rate 55 ML/MIN C-Reactive Protein 2.30 MG/DL B-Type Natriuretic Peptide 240 PG/ML Blood Gas Puncture Site LT RADIAL Blood Gas Patient Temperature 98.6 Blood Gas HCO3 24 mmol/L Blood Gas Base Excess -0.9 mmol/L Blood Gas Oxygen Saturation 97 % Arterial Blood pH 7.37 Arterial Blood Partial Pressure CO2 42 mmHg Arterial Blood Partial Pressure O2 141 mmHg Arterial Blood Oxygen Content 18.3 Vol % Arterial Blood Carboxyhemoglobin 1.4 % Arterial Blood Methemoglobin 0.8 % Blood Gas Hemoglobin 13.2 G/DL Oxygen Delivery Device Blood Gas Liter Flow 4 L/M Objective Remarks GENERAL: Morbid obesity. SKIN: dry skin with occasional scabs, dyshidrosis on bilateral arms. HEAD: Atraumatic. Normocephalic. No temporal or scalp tenderness. EYES: No scleral icterus. No injection or drainage. ENT: Nose without bleeding, purulent drainage or septal hematoma. Airway patent. NECK: Trachea midline. No JVD . Supple, nontender, no meningeal signs. CARDIOVASCULAR: Regular rate and rhythm without murmurs, gallops, or rubs. RESPIRATORY: Decreased breath sounds bilateral, no wheezing or crackles. GASTROINTESTINAL: Abdomen soft, non-tender, nondistended. No guarding. obese, no suprapubic tenderness MUSCULOSKELETAL: Extremities without clubbing, cyanosis. NEUROLOGICAL: Awake and alert. No focal deficits. Medications and IVs Current Medications Medications (Trade) Dose Ordered Sig/Kenzie Route Start Time Stop Time Status Last Admin (NS Flush) 2 ml UNSCH PRN IV FLUSH 07/26/17 17:45 (NS Flush) 2 ml BID IV FLUSH 07/26/17 21:00 07/29/17 08:13 (Narcan Inj) 0.4 mg UNSCH PRN IV PUSH 07/26/17 17:45 (Duoneb Neb) 1 ampule Q2HR NEB PRN NEB 07/26/17 17:45 (Pepcid) 20 mg Q12HR PO 07/26/17 21:00 07/29/17 20:56 (D50w (Vial) Inj) 50 ml UNSCH PRN IV PUSH 07/26/17 17:45 (Glucagon Inj) 1 mg UNSCH PRN OTHER 07/26/17 17:45 (NovoLOG SUPPLEMENTAL SCALE) 1 ACHS SLIDING SCALE SQ 07/26/17 21:00 07/29/17 20:57 (Cogentin) 1 mg HS PO 07/26/17 21:00 07/29/17 20:56 (Singulair) 10 mg HS PO 07/26/17 21:00 07/29/17 20:56 Ceftriaxone Sodium 1000 mg/ Sodium Chloride 100 ml @ 200 mls/hr Q24H IV 07/27/17 09:00 07/29/17 08:14 (Zithromax) 500 mg DAILY PO 07/27/17 09:00 07/29/17 08:14 Sodium Chloride 1,000 ml @ 42 mls/hr [id number] IV 07/27/17 14:30 07/29/17 14:20 (Lovenox Inj) 40 mg Q24H SQ 07/27/17 20:00 07/29/17 20:56 (Mucinex Er) 600 mg BID PO 07/28/17 11:00 07/29/17 20:56 (Vistaril) 25 mg DAILY PRN PO 07/28/17 10:15 (Lac-Hydrin 12% Lotion) 1 applic BID TOPICAL 07/28/17 11:00 07/29/17 20:56 (Duoneb Neb) 1 ampule BID NEB NEB 07/29/17 20:00 07/30/17 07:59 (SoluMEDROL INJ) 40 mg DAILY IV PUSH 07/30/17 09:00 08/01/17 08:59 A/P Assessment and Plan 1. Hypoxic respiratory failure CT pulmonary angiography performed, groundglass opacity probable Pneumonitis versus True infection, was placed on admission on Lovenox 1 mg per Kilogram, Oxygen supplementation, Echocardiogram with EF 60%. Negative bilateral leg ultrasound. continue antibiotics. follow cultures and sputum. as per patient he never smoked, probable related to Infection to continue Ceftriaxone and Azithromycin, asked for dermatology specialist consult, following blood cultures and Sputum culture, not asked for Legionella and Pneumococcal antigen on admission. bronchodilator Mucolytic and incentive spirometry. probable SHADIA and Obesity hypoventilation syndrome. ruled out PE. Improving on Actual Management. okay to discharge Home will go on Symbicort, Tiotropium [place] , Oxygen, Prednisone titrated dosages for 9 days. 2. Sleep apnea suspected will need polysomnography as outpatient 3. Acute Kidney Injury continue IV fluids. asked for new BMP and following. 4. Morbid Obesity strongly recommended diet and exercise, weight loss warranted. 5. Hyperglycemia probable related to his Steroid use will titrate down, continue Sliding scale. switch from IV to by mouth. Follow PCP in 2 to 3 days and with dermatology specialist in one week GO home on Oxygen failed walk test. DVT prophylaxis on Lovenox. GI prophylaxis on ranitidine Discharge Planning Discharge Home now. Sanju Castrejon MD Jul 30, 2017 08:03
[2017-07-30] MEDS: cefTRIAXone INJ 1,000 MG in SODIUM CHLORIDE 0.9% INJ 100 ML IV SCH (08:46)
[2017-07-30] MEDS: guaiFENesin E.R. 600 MG TAB PO SCH (08:46)
[2017-07-30] MEDS: AZITHROMYCIN 250 MG TAB PO SCH (08:46)
[2017-07-30] MEDS: FAMOTIDINE 20 MG TAB PO SCH (08:46)
[2017-07-30] MEDS: SODIUM CHLORIDE 0.9% FLUSH 10 ML FLUSH IV FLUSH SCH (08:47)
[2017-07-30] MEDS: LACTIC ACID (AMMONIUM LACTATE) 12% LOTION 225 GM BTL TOPICAL SCH (08:56)
[2017-07-30] MEDS ORDERED: methylPREDNISolone SOD SUCC 40 MG/1 ML VIAL IV PUSH SCH (09:00)
[2017-07-30] MEDS ORDERED: SYMB160A INH (14:09)
[2017-07-30] MEDS ORDERED: AZIT500T2 PO (14:09)
[2017-07-30] MEDS ORDERED: PRED10 PO (14:09)
[2017-07-30] MEDS ORDERED: guaiFENesin ER PO (14:09)
[2017-07-30] MEDS ORDERED: SPIRCAP INH (14:09)
[2017-07-30] MEDS ORDERED: OXYGENDME NAS.CANULA (14:10)
--- NOTE | 2017-07-30 14:22 | HHI.DS ---
Discharge Summary Admission Date Jul 26, 2017 at 17:34 Discharge Date: Jul 30, 2017 Admitting Diagnosis CAP, hypoxia, EKG changes (1) Respiratory failure ICD Code: J96.90 - Respiratory failure, unspecified, unspecified whether with hypoxia or hypercapnia Diagnosis: Principal (2) Acute renal injury ICD Code: N17.9 - Acute kidney failure, unspecified Diagnosis: Principal Status: Acute (3) BMI 40.0-44.9, adult ICD Code: Z68.41 - Body mass index (BMI) 40.0-44.9, adult Diagnosis: Principal Status: Chronic Procedures None Brief History - From Admission History from patient, at the bedside, ER PA, and nursing staff. short of breath one month went to doctor today and was sent here had cough green sputum no antiobtics no fever ususally coughs a lot not on home oxygen, no inhalors at home in ER was hypoxic 91% on 5L, and was in 60s% on RA by ambulance on my arrival, still on 6L when tapered down to 3L, desat to 88% but looks comfortable stays mostly in bed and recliners at home LE swelling more and more, bilateral need about 5 pillows - but this is chronic- not worsened in past few months no n/v/d/ no blood in stool or urine no buring or freq but had pain on uriantion CBC/BMP: 07/27/17 0759 07/28/17 1054 Significant Findings Laboratory Tests Test 07/28/17 10:54 07/28/17 13:43 07/28/17 14:54 Blood Urea Nitrogen 23 MG/DL (7-18) Creatinine 1.33 MG/DL (0.60-1.30) Random Glucose 206 MG/DL (74-106) Calcium Level 8.3 MG/DL (8.5-10.1) Sodium Level 134 MEQ/L (136-145) Estimat Glomerular Filtration Rate 55 ML/MIN (>89) C-Reactive Protein 2.30 MG/DL (0.00-0.30) B-Type Natriuretic Peptide 240 PG/ML (0-100) Arterial Blood pH 7.37 (7.380-7.420) Arterial Blood Partial Pressure O2 141 mmHg (61-120) Imaging Last Impressions Chest X-Ray 07/29/17 0800 Signed Impressions: Service Date/Time: Saturday, July 29, 2017 08:00 - CONCLUSION: 1. No acute abnormality. The patchy infiltrates seen on 07/26/17 are not identified. Dheeraj Mclaughlin MD Lower Extremity Ultrasound 07/26/17 0000 Signed Impressions: Service Date/Time: Wednesday, July 26, 2017 19:51 - CONCLUSION: 1. Negative for deep venous thrombosis. Gulshan Gandara MD CT Angiography 07/26/17 0000 Signed Impressions: Service Date/Time: Wednesday, July 26, 2017 20:21 - CONCLUSION: 1. Negative pulmonary embolus. 2. Diffuse patchy groundglass opacity in both lungs more severe in upper lobes. Differential diagnosis includes infection and hypersensitivity type reaction. Gulshan Gandara MD PE at Discharge GENERAL: Morbid obesity. SKIN: dry skin with occasional scabs, dyshidrosis on bilateral arms. HEAD: Atraumatic. Normocephalic. No temporal or scalp tenderness. EYES: No scleral icterus. No injection or drainage. ENT: Nose without bleeding, purulent drainage or septal hematoma. Airway patent. NECK: Trachea midline. No JVD . Supple, nontender, no meningeal signs. CARDIOVASCULAR: Regular rate and rhythm without murmurs, gallops, or rubs. RESPIRATORY: Decreased breath sounds bilateral, no wheezing or crackles. GASTROINTESTINAL: Abdomen soft, non-tender, nondistended. No guarding. obese, no suprapubic tenderness MUSCULOSKELETAL: Extremities without clubbing, cyanosis. NEUROLOGICAL: Awake and alert. No focal deficits. Hospital Course This is a pleasant 62 y/o Male who came to ER with Shortness of breath for one month, had cough, afebrile, do not use Home Oxygen, Hypoxic in ER, he has Hypertension, history of Rectal cancer, Obesity, Possible SHADIA, stable in his bedroom, in the presence of his and nurse 07/28: Stable in his bedroom, Pulmonary consult placed, his asking for Vistaril once a day, also has Bilateral arm dyshidrosis will start Lactic acid. 07/29: motor tune up specialist following, recommended laboratory and CXR for follow up and Echocardiogram EF 60-65%. no signs of CHF, Mild increase in Brain natriuretic peptide, may have some early Diastolic dysfunction, has morbid Obesity and probable Obstructive Sleep Apnea, receiving antibiotics. motor tune up specialist following improving condition, discussed with him and his about Weight loss warranted. 07/30: Seen in his bedroom today walking in the aisle, breathing with nasal Cannula 2 L/min oxygen, no nausea, vomit or diarrhea discussed with doctor Feliciano Nelson okay to discharge patient home with Home oxygen arranged. continue antibiotics for five days Steroids titrated dosages and Symbicort and Spiriva. Assessment and Plan 1. Hypoxic respiratory failure CT pulmonary angiography performed, groundglass opacity probable Pneumonitis versus True infection, was placed on admission on Lovenox 1 mg per Kilogram, Oxygen supplementation, Echocardiogram with EF 60%. Negative bilateral leg ultrasound. continue antibiotics. follow cultures and sputum. as per patient he never smoked, probable related to Infection to continue Ceftriaxone and Azithromycin, asked for motor tune up specialist consult, following blood cultures and Sputum culture, not asked for Legionella and Pneumococcal antigen on admission. bronchodilator Mucolytic and incentive spirometry. probable SHADIA and Obesity hypoventilation syndrome. ruled out PE. Improving on Actual Management. okay to discharge Home will go on Symbicort, Tiotropium [place] , Oxygen, Prednisone titrated dosages for 9 days. 2. Sleep apnea suspected will need polysomnography as outpatient 3. Acute Kidney Injury continue IV fluids. asked for new BMP and following. 4. Morbid Obesity strongly recommended diet and exercise, weight loss warranted. 5. Hyperglycemia probable related to his Steroid use will titrate down, continue Sliding scale. switch from IV to by mouth. Follow PCP in 2 to 3 days and with motor tune up specialist in one week GO home on Oxygen failed walk test. DVT prophylaxis on Lovenox. GI prophylaxis on ranitidine Discharge Planning Discharge Home now. Pt Condition on Discharge: Good Discharge Disposition: Discharge Home Discharge Time: > 30 minutes Discharge Instructions DIET: Follow Instructions for: Heart Healthy Diet Activities you can perform: Regular-No Restrictions Sanju Castrejon MD Jul 30, 2017 14:22
== END 2017-07-30 18:44 | disposition home or self-care (01) | DRG 189 ==
LOC: NEPE 14:44 → NEDA 17:34 → NEDH 21:34 → N04A 07-27 12:58
PROVIDERS: ADMIT Internal Medicine; ATTEND Internal Medicine
DX: J96.91 Respiratory failure, unspecified with hypoxia (principal); J18.9 Pneumonia, unspecified organism; N17.9 Acute kidney failure, unspecified; Z68.42 Body mass index [BMI] 45.0-49.9, adult; E66.2 Morbid (severe) obesity with alveolar hypoventilation; E86.0 Dehydration; R60.0 Localized edema; R26.9 Unspecified abnormalities of gait and mobility; I10 Essential (primary) hypertension; E11.65 Type 2 diabetes mellitus with hyperglycemia; E78.00 Pure hypercholesterolemia, unspecified; L30.1 Dyshidrosis [pompholyx]; T38.0X5A Adverse effect of glucocorticoids and synthetic analogues, initial encounter; F32.9 Major depressive disorder, single episode, unspecified; Z80.6 Family history of leukemia; Z82.49 Family history of ischemic heart disease and other diseases of the circulatory system; Z85.048 Personal history of other malignant neoplasm of rectum, rectosigmoid junction, and anus; Z92.21 Personal history of antineoplastic chemotherapy; Z92.3 Personal history of irradiation
CPT/HCPCS: 36600; 71045; 71275; 80048; 80053; 80061; 81001; 82550; 82552; 82607; 82746; 82805; 82948; 83036; 83880; 84439; 84443; 84484; 85025; 85379; 85610; 85730; 86140; 87040; 87070; 87205; 93005; 93306; 93970; 94150; 94618; 94640; 94664; 96374; J0456; J0696; J1650; J1815; J2920; J2930; J7030; J7050; Q9967

== ENCOUNTER 2017-10-19 16:49 | Inpatient (IN) | payer MEDICAID ==
[~2017-10-19] VITALS: Ht 177.8 cm; Wt 148.0 kg
[~2017-10-19 16:49] MED LIST changes: +AZIT500T2 PO; -CETI10 PO; +OXYGENDME NAS.CANULA; +PRED10 PO; +SPIRCAP INH; +SYMB160A INH; +guaiFENesin ER PO
[2017-10-19 17:17] VITALS: BP 126/78; PULSE 90; RESP 20; TEMP 98.5; O2SAT 94
[2017-10-19 17:25] VITALS: O2SAT 94
[2017-10-19] MEDS ORDERED: SODIUM CHLORIDE 0.9% FLUSH 10 ML FLUSH IVF PRN (17:30)
[2017-10-19] MEDS ORDERED: RESP: ALBUTEROL 2.5 MG/IPRATROPIUM 0.5 MG NEB (SCH) NEB ONE ×2 (17:30→19:45)
--- NOTE | 2017-10-19 17:51 | PD ---
HPI Chief Complaint: Respiratory Symptoms Time Seen by Provider: 17:11 Travel History International Travel<30 days: No Contact w/Intl Traveler<30days: No Traveled to known affect area: No History of Present Illness HPI 62-year-old man, presents to the emergency department complaining of shortness of breath. He was admitted to the hospital about a month or so ago of hypoxic respiratory failure. CT scan showed groundglass infiltrates either inflammatory or infectious. He was treated for pneumonia. He was discharged on home oxygen. He is very obese and may have obesity hypoventilation syndrome as well. No previous diagnosis of lung disease or COPD. He was discharged on bronchodilators and steroids. He is followed up with pulmonary since then. He presents because been progressively more short of breath over the past week or so. Had an appointment with his pulmonary doctor, Dr. Valero, today. Continues other medications. No chest pain. No other changes. States he is now significantly short of breath even walking across the [place]ist[place] to the bathroom. History Past Medical History Narrative Medical Obesity COPD Diabetes Tetanus Vaccination: > 5 Years Influenza Vaccination: No Social History Alcohol Use: No Tobacco Use: No Allergies-Medications (Allergen,Severity, Reaction): Coded Allergies: No Known Allergies (Verified Adverse Reaction, Unknown, 10/19/17) Reported Meds & Prescriptions Reported Meds & Active Scripts Active Oxygen (O2) Device Liter TRISHA.CANULA CONTINUOUS Oxygen Concentrator Portable Gaseous 2 L/min via Nasal Canula Continuous For 99 months Spiriva Handihaler (Tiotropium Inh) 18 Mcg Cap 18 Mcg INH DAILY 1 capsule = 18 mcg Symbicort Inh (Budesonide/Formoterol Fumarate) 160-4.5 Mcg/Act Aero 2 Puff INH Q12HR Reported Januvia (Sitagliptin Phosphate) 50 Mg Tab 50 Mg PO DAILY Metformin (Metformin HCl) 1,000 Mg Tab 1,000 Mg PO BID Montelukast (Montelukast Sodium) 10 Mg Tab 10 Mg PO HS Risperidone 2 Mg Tab 2 Mg PO HS Benztropine (Benztropine Mesylate) 0.5 Mg Tab 1 Mg PO HS Citalopram (Citalopram Hydrobromide) 40 Mg Tab 40 Mg PO HS Hydroxyzine Pamoate 50 Mg Cap 50 Mg PO EVERY 6-8 HOURS Review of Systems Except as stated in HPI: all other systems reviewed are Neg Physical Exam Narrative GENERAL: Morbidly obese 62-year-old man, some tachypnea. SKIN: Focused skin assessment warm/dry. HEAD: Atraumatic. Normocephalic. EYES: Pupils equal and round. No scleral icterus. No injection or drainage. ENT: No nasal bleeding or discharge. Mucous membranes pink and moist. NECK: Trachea midline. No JVD. CARDIOVASCULAR: Regular rate and rhythm. No murmur appreciated. RESPIRATORY: No respiratory distress. A little bit of tachypnea. Diminished breath sounds throughout, possibly with some asymmetry more diminished on the right. GASTROINTESTINAL: Abdomen soft, non-tender, nondistended. Hepatic and splenic margins not palpable. MUSCULOSKELETAL: No obvious deformities. Chronic edema both lower extremities. NEUROLOGICAL: Awake and alert. No obvious cranial nerve deficits. Motor grossly within normal limits. Normal speech. PSYCHIATRIC: Appropriate mood and affect; insight and judgment normal. Data Data Last Documented VS Vital Signs Date Time Temp Pulse Resp B/P (MAP) Pulse Ox O2 Delivery O2 Flow Rate FiO2 10/19/17 19:18 96 145/80 (101) 93 Nasal Cannula 4.00 10/19/17 17:17 98.5 20 Orders Orders Complete Blood Count With Diff (10/19/17 17:20) Comprehensive Metabolic Panel (10/19/17 17:20) B-Type Natriuretic Peptide (10/19/17 17:20) Magnesium (Mg) (10/19/17 17:20) Troponin I (10/19/17 17:20) Arterial Blood Gas (Abg) (10/19/17 17:20) Iv Access Insert/Monitor (10/19/17 17:20) Electrocardiogram (10/19/17 17:20) Ecg Monitoring (10/19/17 17:20) Oximetry (10/19/17 17:20) Oxygen Administration (10/19/17 17:20) Chest, Pa & Lat (10/19/17 17:20) Sodium Chloride 0.9% Flush (Ns Flush) (10/19/17 17:30) Albuterol-Ipratropium Neb (Duoneb Neb) (10/19/17 17:30) Ct Pulmonary Angiogram (10/19/17 ) Methylprednisolone So Succ Inj (Solumedr (10/19/17 19:45) Albuterol-Ipratropium Neb (Duoneb Neb) (10/19/17 19:45) Admit Order (Ed Use Only) (10/19/17 ) Labs Laboratory Tests Test 10/19/17 17:30 10/19/17 18:43 White Blood Count 6.5 TH/MM3 Red Blood Count 4.62 MIL/MM3 Hemoglobin 13.4 GM/DL Hematocrit 40.5 % Mean Corpuscular Volume 87.7 FL Mean Corpuscular Hemoglobin 29.1 PG Mean Corpuscular Hemoglobin Concent 33.1 % Red Cell Distribution Width 16.1 % Platelet Count 167 TH/MM3 Mean Platelet Volume 8.5 FL Neutrophils (%) (Auto) 61.3 % Lymphocytes (%) (Auto) 14.6 % Monocytes (%) (Auto) 12.6 % Eosinophils (%) (Auto) 10.4 % Basophils (%) (Auto) 1.1 % Neutrophils # (Auto) 4.0 TH/MM3 Lymphocytes # (Auto) 0.9 TH/MM3 Monocytes # (Auto) 0.8 TH/MM3 Eosinophils # (Auto) 0.7 TH/MM3 Basophils # (Auto) 0.1 TH/MM3 CBC Comment DIFF FINAL Differential Comment Blood Urea Nitrogen 10 MG/DL Creatinine 1.25 MG/DL Random Glucose 85 MG/DL Total Protein 7.9 GM/DL Albumin 3.3 GM/DL Calcium Level 8.9 MG/DL Magnesium Level 1.6 MG/DL Alkaline Phosphatase 68 U/L Aspartate Amino Transf (AST/SGOT) 30 U/L Alanine Aminotransferase (ALT/SGPT) 31 U/L Total Bilirubin 0.4 MG/DL Sodium Level 141 MEQ/L Potassium Level 4.0 MEQ/L Chloride Level 102 MEQ/L Carbon Dioxide Level 31.6 MEQ/L Anion Gap 7 MEQ/L Estimat Glomerular Filtration Rate 59 ML/MIN Troponin I LESS THAN 0.02 NG/ML B-Type Natriuretic Peptide LESS THAN 2 PG/ML Blood Gas Puncture Site RT RADIAL Blood Gas Patient Temperature 98.6 Blood Gas HCO3 31 mmol/L Blood Gas Base Excess 6.2 mmol/L Blood Gas Oxygen Saturation 88 % Arterial Blood pH 7.41 Arterial Blood Partial Pressure CO2 49 mmHg Arterial Blood Partial Pressure O2 60 mmHG Arterial Blood Oxygen Content 16.2 Vol % Arterial Blood Carboxyhemoglobin 2.9 % Arterial Blood Methemoglobin 0.6 % Blood Gas Hemoglobin 13.1 G/DL Oxygen Delivery Device NASAL CANNULA Blood Gas Liter Flow 4 L/M [facility] Medical Decision Making Medical Screen Exam Complete: Yes Emergency Medical Condition: Yes Interpretation(s) My review of EKG: Normal sinus rhythm at a rate of 85, normal axis, normal intervals, no acute ischemia. LABS: CBC unremarkable. CMP unremarkable Troponin negative BNP negative ABG 7.4 //31, base excess 6.2 Chest x-ray: Negative. Differential Diagnosis COPD, heart failure, obesity hypoventilation, other Narrative Course Medical decision making 62-year-old man presents emerged department worsening shortness of breath, obesity, with unusual findings on his previous chest imaging. Possibly aspiration or pulmonary fibrosis. I hear much wheezing. Obesity hypoventilation may have the same effect. He is still pretty hypoxic despite being on oxygen here. No obvious stigmata of heart failure. Check labs, x-ray , reassess. FINAL: 62-year-old man, worsening hypoxia and dyspnea on exertion, etiology is unclear. Being treated for COPD. Possibly obesity hypoventilation syndrome. Unusual infiltrates on a CT scan previously not consistent with COPD. Will repeat CT scan. I spoke with Dr. Nelson, on-call for his psychiatric nursing assistant. Recommend admission, pulmonology consult, reassess. Will treat for COPD. Diagnosis Primary Impression: Respiratory failure Camron Perez MD Oct 19, 2017 17:51
[2017-10-19] MEDS ORDERED: SITA50 PO (17:52)
[2017-10-19] MEDS ORDERED: METF1000 PO (17:52)
--- NOTE | 2017-10-19 18:16 | RADRPT ---
EXAM DATE/TIME: 10/19/2017 17:44 [facility] COMPARISON: CHEST SINGLE AP, July 29, 2017, 8:00. INDICATIONS : Shortness of breath. MEDICAL HISTORY : Congestive heart failure. Hypertension. SURGICAL HISTORY : None. ENCOUNTER: Initial ACUITY: 2 days PAIN SCORE: 0/10 LOCATION: chest FINDINGS: PA and lateral views of the chest demonstrate the lungs to be symmetrically aerated without evidence of mass, infiltrate or effusion. The cardiomediastinal contours are unremarkable. Osseous structure s are intact. CONCLUSION: No acute disease. Faisal Tran MD on October 19, 2017 at 18:12 Board Certified Radiologist. This report was verified electronically.
[2017-10-19 18:53] LABS: BASOPHIL # 0.1 TH/MM3 (0-0.2); BASOPHIL % 1.1 % (0.0-2.0); EOSINOPHIL # 0.7 TH/MM3 (0-0.4); EOSINOPHIL % 10.4 % (0.0-4.0); HEMATOCRIT 40.5 % (39.0-51.0); HEMOGLOBIN 13.4 GM/DL (13.0-17.0); LYMPH % 14.6 % (9.0-44.0); LYMPHOCYTE # 0.9 TH/MM3 (1.0-4.8); MEAN CELL VOLUME 87.7 FL (80.0-100.0); MEAN CORPUSCULAR HEMOGLOBIN 29.1 PG (27.0-34.0); MEAN CORPUSCULAR HGB CONC 33.1 % (32.0-36.0); MEAN PLATELET VOLUME 8.5 FL (7.0-11.0); MONO % 12.6 % (0.0-8.0); MONOCYTE # 0.8 TH/MM3 (0-0.9); NEUT % 61.3 % (16.0-70.0); PLATELET COUNT 167 TH/MM3 (150-450); RED BLOOD COUNT 4.62 MIL/MM3 (4.50-5.90); RED CELL DISTRIBUTION WIDTH 16.1 % (11.6-17.2); WHITE BLOOD COUNT 6.5 TH/MM3 (4.0-11.0)
[2017-10-19 18:54] LABS: ALBUMIN 3.3 GM/DL (3.4-5.0); AST (GOT) 30 U/L (15-37); BICARBONATE 31.6 MEQ/L (21.0-32.0); BLOOD UREA NITROGEN 10 MG/DL (7-18); CALCIUM 8.9 MG/DL (8.5-10.1); CHLORIDE 102 MEQ/L (98-107); CREATININE 1.25 MG/DL (0.60-1.30); GLOMERULAR FILTRATION RATE 59 ML/MIN (>89); GLUCOSE,RANDOM 85 MG/DL (74-106); MAGNESIUM 1.6 MG/DL (1.5-2.5); SODIUM (NA) 141 MEQ/L (136-145)
[2017-10-19 18:59] LABS: ALKALINE PHOSPHATASE 68 U/L (45-117); ALT (GPT) 31 U/L (12-78); TOTAL BILIRUBIN ADULT 0.4 MG/DL (0.2-1.0); TOTAL PROTEIN 7.9 GM/DL (6.4-8.2); TROPONIN I LESS THAN 0.02 NG/ML (0.02-0.05)
[2017-10-19 19:18] VITALS: BP 145/80; PULSE 96; O2SAT 93
[2017-10-19] MEDS ORDERED: methylPREDNISolone SOD SUCC 125 MG/2 ML VIAL IV PUSH ONE (19:45)
[2017-10-19] MEDS ORDERED: IOHEXOL 350 MG/ML 10 ML VIAL (for RAD DIAG) IVCONTRAST ONE (20:02)
--- NOTE | 2017-10-19 20:11 | RADRPT ---
EXAM DATE/TIME: 10/19/2017 19:58 [facility] COMPARISON: No previous studies available for comparison. INDICATIONS : Short of breath. IV CONTRAST: 60 cc Omnipaque 350 (iohexol) IV RADIATION DOSE: 23.29 CTDIvol (mGy) MEDICAL HISTORY : Hypertension. Diabetes mellitus type 1. SURGICAL HISTORY : Cholecystectomy. ENCOUNTER: Initial ACUITY: 2 weeks PAIN SCALE: 0/10 LOCATION: chest TECHNIQUE: Volumetric scanning of the chest was performed using a pulmonary embolism protocol MIP images were re constructed. Using automated exposure control and adjustment of the mA and/or kV according to patien t size, radiation dose was kept as low as reasonably achievable to obtain optimal diagnostic quality images. DICOM format image data is available electronically for review and comparison. Follow-up recommendations for detected pulmonary nodules are based at a minimum on nodule size and pa tient risk factors according to Fleischner Society Guidelines. FINDINGS: PULMONARY ARTERIES: No filling defects are seen in the pulmonary arteries through the segmental level. LUNGS: Minimal lingular infiltrate. PLEURAE: There is no pleural thickening or pleural effusion. MEDIASTINUM: There is good visualization of the great vessels of the middle mediastinum. No evidence of mediastin al or hilar adenopathy/mass. MUSCULOSKELETAL: Within normal limits for patient age. MISCELLANEOUS: The visualized upper abdominal organs demonstrate no acute abnormality. CONCLUSION: No evidence of pulmonary embolism Faisal Tran MD on October 19, 2017 at 20:07 Board Certified Radiologist. This report was verified electronically.
[2017-10-19] MEDS ORDERED: ONDANSETRON HCL 4 MG/2 ML VIAL IVP PRN (21:45)
[2017-10-19] MEDS ORDERED: BISACODYL 10 MG SUPP RECTAL PRN (21:45)
[2017-10-19] MEDS ORDERED: NALOXONE HCL 0.4 MG/ML AMP IV PUSH PRN (21:45)
[2017-10-19] MEDS ORDERED: RESP: ALBUTEROL 2.5 MG/IPRATROPIUM 0.5 MG NEB (PRN) NEB (21:45)
[2017-10-19] MEDS ORDERED: ACETAMINOPHEN 325 MG TAB PO PRN (21:45)
[2017-10-19] MEDS ORDERED: SENNOSIDES 8.6 MG TAB PO PRN (21:45)
[2017-10-19] MEDS ORDERED: LACTULOSE SYRUP 20 GM/30 ML CUP PO PRN (21:45)
[2017-10-19] MEDS ORDERED: DEXTROSE 50% IN WATER 50 ML VIAL(D50) IV PUSH PRN (21:45)
[2017-10-19] MEDS ORDERED: GLUCAGON 1 MG/ML VIAL OTHER PRN (21:45)
[2017-10-19] MEDS ORDERED: SODIUM CHLORIDE 0.9% FLUSH 10 ML FLUSH IV FLUSH PRN (21:45)
[2017-10-19] MEDS ORDERED: MAGNESIUM HYDROXIDE SUSP 30 ML CUP PO PRN (21:45)
[2017-10-19] MEDS: HEPARIN SODIUM - SQ 10,000 UNITS/ML VIAL SQ SCH (22:13)
[2017-10-20] VITALS (8 sets, daily range): BP systolic 115–143; BP diastolic 62–90; PULSE 69–82; RESP 18–22; TEMP 97.4–97.7; O2SAT 92–98
[2017-10-20] MEDS: methylPREDNISolone SOD SUCC 40 MG/1 ML VIAL IV PUSH SCH ×4 (00:08→16:47)
--- NOTE | 2017-10-20 01:08 | HHI.HP ---
HPI Service [facility] Primary Care Physician Alok Ball D.O. Admission Diagnosis Hypoxia shortness of breath Diagnoses: Travel History International Travel<30 Days: No Contact w/Intl Traveler <30 Da: No Traveled to Known Affected Are: No History of Present Illness 62-year-old male with a past medical history significant for diabetes mellitus, hypertension, hyperlipidemia, COPD on 4 L nasal cannula at home and schizophrenia presents to the emergency department for evaluation of shortness of breath. The patient reports that his shortness of breath started yesterday morning and was accompanied by a cough productive of green sputum. He denies any fever/chills. No chest pain. He denies any abdominal pain. No nausea/ vomiting/diarrhea. Does report burning with urination. He is currently being treated as an outpatient for a urethral stricture. Patient was recently hospitalized for hypoxic respiratory failure and recently diagnosed with COPD. He is followed as an outpatient by Dr. Fisher and has a history of groundglass opacity on CT scan. Review of Systems Except as stated in HPI: all other systems reviewed are Neg Past Family Social History Past Medical History Diabetes mellitus Hypertension Hyperlipidemia COPD Schizophrenia Past Surgical History Cholecystectomy Reported Medications Reported Meds & Active Scripts Active Oxygen (O2) Device Liter TRISHA.CANULA CONTINUOUS Oxygen Concentrator Portable Gaseous 2 L/min via Nasal Canula Continuous For 99 months Spiriva Handihaler (Tiotropium Inh) 18 Mcg Cap 18 Mcg INH DAILY 1 capsule = 18 mcg Symbicort Inh (Budesonide/Formoterol Fumarate) 160-4.5 Mcg/Act Aero 2 Puff INH Q12HR Reported Januvia (Sitagliptin Phosphate) 50 Mg Tab 50 Mg PO DAILY Metformin (Metformin HCl) 1,000 Mg Tab 1,000 Mg PO BID Montelukast (Montelukast Sodium) 10 Mg Tab 10 Mg PO HS Risperidone 2 Mg Tab 2 Mg PO HS Benztropine (Benztropine Mesylate) 0.5 Mg Tab 1 Mg PO HS Citalopram (Citalopram Hydrobromide) 40 Mg Tab 40 Mg PO HS Hydroxyzine Pamoate 50 Mg Cap 50 Mg PO EVERY 6-8 HOURS Allergies: Coded Allergies: No Known Allergies (Verified Adverse Reaction, Unknown, 10/19/17) Family History Mother with CAD Social History Never smoker. Denies alcohol, illicit drugs. Physical Exam Vital Signs Vital Signs Date Time Temp Pulse Resp B/P (MAP) Pulse Ox O2 Delivery O2 Flow Rate FiO2 10/20/17 00:10 82 119/67 (84) 96 Nasal Cannula 4.00 10/20/17 00:00 95 Nasal Cannula 4.00 18 19:18 96 145/80 (101) 93 Nasal Cannula 4.00 18 17:25 Nasal Cannula 4.00 18 17:25 94 18 17:19 Nasal Cannula 4.00 10/19/17 17:17 98.5 90 20 126/78 (94) 94 Physical Exam GENERAL: Obese, male lying in bed SKIN: No rashes, ecchymoses or lesions. Cool and dry. HEAD: Atraumatic. Normocephalic. No temporal or scalp tenderness. EYES: Pupils equal round and reactive. Extraocular motions intact. No scleral icterus. No injection or drainage. ENT: Nose without bleeding, purulent drainage or septal hematoma. Throat without erythema, tonsillar hypertrophy or exudate. Uvula midline. Airway patent. NECK: Trachea midline. No JVD or lymphadenopathy. Supple, nontender, no meningeal signs. CARDIOVASCULAR: Regular rate and rhythm without murmurs, gallops, or rubs. RESPIRATORY: Mild bilateral expiratory wheezes. GASTROINTESTINAL: Abdomen soft, non-tender, nondistended. No hepato-splenomegaly , or palpable masses. No guarding. MUSCULOSKELETAL: Extremities without clubbing, cyanosis, or edema. No joint tenderness, effusion, or edema noted. No calf tenderness. NEUROLOGICAL: Awake and alert. Cranial nerves II through XII intact. Motor and sensory grossly within normal limits. Normal speech. Laboratory Laboratory Tests Test 10/19/17 17:30 10/19/17 18:43 White Blood Count 6.5 Red Blood Count 4.62 Hemoglobin 13.4 Hematocrit 40.5 Mean Corpuscular Volume 87.7 Mean Corpuscular Hemoglobin 29.1 Mean Corpuscular Hemoglobin Concent 33.1 Red Cell Distribution Width 16.1 Platelet Count 167 Mean Platelet Volume 8.5 Neutrophils (%) (Auto) 61.3 Lymphocytes (%) (Auto) 14.6 Monocytes (%) (Auto) 12.6 Eosinophils (%) (Auto) 10.4 Basophils (%) (Auto) 1.1 Neutrophils # (Auto) 4.0 Lymphocytes # (Auto) 0.9 Monocytes # (Auto) 0.8 Eosinophils # (Auto) 0.7 Basophils # (Auto) 0.1 CBC Comment DIFF FINAL Differential Comment Blood Urea Nitrogen 10 Creatinine 1.25 Random Glucose 85 Total Protein 7.9 Albumin 3.3 Calcium Level 8.9 Magnesium Level 1.6 Alkaline Phosphatase 68 Aspartate Amino Transf (AST/SGOT) 30 Alanine Aminotransferase (ALT/SGPT) 31 Total Bilirubin 0.4 Sodium Level 141 Potassium Level 4.0 Chloride Level 102 Carbon Dioxide Level 31.6 Anion Gap 7 Estimat Glomerular Filtration Rate 59 Troponin I LESS THAN 0.02 B-Type Natriuretic Peptide LESS THAN 2 Blood Gas Puncture Site RT RADIAL Blood Gas Patient Temperature 98.6 Blood Gas HCO3 31 Blood Gas Base Excess 6.2 Blood Gas Oxygen Saturation 88 Arterial Blood pH 7.41 Arterial Blood Partial Pressure CO2 49 Arterial Blood Partial Pressure O2 60 Arterial Blood Oxygen Content 16.2 Arterial Blood Carboxyhemoglobin 2.9 Arterial Blood Methemoglobin 0.6 Blood Gas Hemoglobin 13.1 Oxygen Delivery Device NASAL CANNULA Blood Gas Liter Flow 4 Result Diagram: 10/19/17 1730 10/19/17 1730 Caprini VTE Risk Assessment Caprini VTE Risk Assessment: Mod/High Risk (score >= 2) Caprini Risk Assessment Model Point Value = 1 Point Value = 2 Point Value = 3 Point Value = 5 Age 41-60 Minor surgery BMI > 25 kg/m2 Swollen legs Varicose veins or History of unexplained or recurrent spontaneous Oral contraceptives or hormone replacement Sepsis (< 1 month) Serious lung disease, including pneumonia (< 1 month) Abnormal pulmonary function Acute myocardial infarction Congestive heart failure (< 1 month) History of inflammatory bowel disease Medical patient at bed rest Age 61-74 Arthroscopic surgery Major open surgery (> 45 min) Laparoscopic surgery (> 45 min) Malignancy Confined to bed (> 72 hours) Immobilizing plaster cast Central venous access Age >= 75 History of VTE Family history of VTE Factor V Leiden Prothrombin [id number] Lupus anticoagulant Anticardiolipin antibodies Elevated serum homocysteine Heparin-induced thrombocytopenia Other congenital or acquired thrombophilia Stroke (< 1 month) Elective arthroplasty Hip, pelvis, or leg fracture Acute spinal cord injury (< 1 month) Prophylaxis Regimen Total Risk Factor Score Risk Level Prophylaxis Regimen 0-1 Low Early ambulation 2 Moderate Order ONE of the following: *Sequential Compression Device (SCD) *Heparin 5000 units SQ BID 3-4 Higher Order ONE of the following medications: *Heparin 5000 units SQ TID *Enoxaparin/Lovenox 40 mg SQ daily (WT < 150 kg, CrCl > 30 mL/min) *Enoxaparin/Lovenox 30 mg SQ daily (WT < 150 kg, CrCl > 10-29 mL/min) *Enoxaparin/Lovenox 30 mg SQ BID (WT < 150 kg, CrCl > 30 mL/min) AND/OR *Sequential Compression Device (SCD) 5 or more Highest Order ONE of the following medications: *Heparin 5000 units SQ TID (Preferred with Epidurals) *Enoxaparin/Lovenox 40 mg SQ daily (WT < 150 kg, CrCl > 30 mL/min) *Enoxaparin/Lovenox 30 mg SQ daily (WT < 150 kg, CrCl > 10-29 mL/min) *Enoxaparin/Lovenox 30 mg SQ BID (WT < 150 kg, CrCl > 30 mL/min) AND *Sequential Compression Device (SCD) Assessment and Plan Assessment and Plan Assessment/plan: 1. Shortness of breath/COPD exacerbation/pneumonia/respiratory failure ABG 7.4 // CTA negative for PE, significant for mild lingular infiltrate Patient with increased sputum production and cough productive of green sputum Levaquin Pulmonology consulted, appreciate assistance Duo nebs IV steroids Supplemental oxygen as needed Continue home Spiriva and Symbicort Patient's hypoxia may be related to obesity hypoventilation syndrome 2. Diabetes mellitus Holding home Metformin/Januvia Sliding-scale insulin Monitor blood glucose 3. Burning with urination UA pending Patient with known urethral stricture, reports able to void without difficulty Follows with urology as an outpatient 4. Schizophrenia Continue home citalopram/risperidone 5. Hypertension/hyperlipidemia Patient reports history of HTN/HLD however is not on any home medications Monitor blood pressure and treat if needed FEN Heart healthy, diabetic diet Electrolytes: Monitor and replete as needed Heparin Physician Certification 2 Midnight Certification Type: Admission for Inpatient Services Order for Inpatient Services The services are ordered in accordance with Medicare regulations or non- Medicare payer requirements, as applicable. In the case of services not specified as inpatient-only, they are appropriately provided as inpatient services in accordance with the 2-midnight benchmark. Estimated LOS (days): 2 2 days is the estimated time the patient will need to remain in the hospital, assuming treatment plan goals are met and no additional complications. Post-Hospital Plan: Not yet determined Traci Neely MD Oct 20, 2017 01:08
[2017-10-20] MEDS: LEVOFLOXACIN 750 MG PREMIX INJ 150 ML IV SCH (01:15)
[2017-10-20 01:50] LABS: BILIRUBIN, URINE NEG (NEG); BLOOD, URINE NEG (NEG); GLUCOSE,URINE NEG (NEG); KETONE, URINE NEG (NEG); MUCUS URINE FEW /lpf (OCC); NITRITE,URINE NEG (NEG); PH, URINE 5.5 (5.0-8.5); SQUAMOUS EPITHELIAL CELL URINE 1 /hpf (0-5); URINE COLOR YELLOW (YELLW/STRAW); URINE LEUKOCYTE ESTERASE NEG (NEG)
[2017-10-20] MEDS: HEPARIN SODIUM - SQ 10,000 UNITS/ML VIAL SQ SCH ×3 (06:42→20:55)
[2017-10-20] MEDS: DOCUSATE SODIUM 50 MG/SENNA 8.6 MG TAB PO SCH ×2 (08:24→20:49)
[2017-10-20] MEDS: SODIUM CHLORIDE 0.9% FLUSH 10 ML FLUSH IV FLUSH SCH ×2 (08:24→20:54)
[2017-10-20 10:27] LABS: BICARBONATE 25.6 MEQ/L (21.0-32.0); CALCIUM 8.9 MG/DL (8.5-10.1); CREATININE 1.25 MG/DL (0.60-1.30)
--- NOTE | 2017-10-20 10:29 | PD.PN.STU ---
Subjective Remarks The patient is a 62 y/o male with a hx of COPD, hypertension, hyperlipidemia, a urethral stricture, and diabetes who presents with the complaint os shortness of breath. Yesterday evening he was sitting in his recliner on 4L of oxygen and became SOB. He is normally on 4L of home oxygen. He said his oxygen saturation was 75% so he called his lead systems analyst who told him to report to the ED. He said the SOB got better when he arrived and was given oxygen, breathing treatments, and steroids. The patient says this has happened to him about 3 times prior to this with the most recent being in August which was secondary to pneumonia. He has also had a cough which he says started at the same time yesterday. He reports dark green sputum with the cough. He denies any aggravating or alleviating factors for his SOB or cough. The patient reports that he sometimes wakes up SOB and has to sleep on 6 pillows to prevent that. He denies any chest pain, edema, fever, chills, nausea , vomiting, diarrhea, congestions, body aches, or headaches. He reports some dysuria which is normal for him due to his urethral stricture. Objective Vitals Vital Signs Date Time Temp Pulse Resp B/P (MAP) Pulse Ox O2 Delivery O2 Flow Rate FiO2 10/20/17 08:11 79 18 133/86 (102) 97 Nasal Cannula 4.00 10/20/17 04:51 77 120/77 (91) 97 Nasal Cannula 4.00 10/20/17 02:46 73 137/84 (101) 96 Nasal Cannula 4.00 10/20/17 00:10 82 119/67 (84) 96 Nasal Cannula 4.00 10/20/17 00:00 95 Nasal Cannula 4.00 10/19/17 19:18 96 145/80 (101) 93 Nasal Cannula 4.00 10/19/17 17:25 Nasal Cannula 4.00 10/19/17 17:25 94 10/19/17 17:19 Nasal Cannula 4.00 10/19/17 17:17 98.5 90 20 126/78 (94) 94 I/O 10/19/17 10/19/17 10/19/17 10/20/17 10/20/17 10/20/17 07:00 15:00 23:00 07:00 15:00 23:00 Intake Total 150 ml Balance 150 ml Intake IV Total 150 ml Result Diagram: 10/19/17 1730 10/19/17 1730 Other Results Laboratory Tests Test 10/19/17 17:30 10/19/17 18:43 10/20/17 01:20 10/20/17 09:42 White Blood Count 6.5 TH/MM3 Red Blood Count 4.62 MIL/MM3 Hemoglobin 13.4 GM/DL Hematocrit 40.5 % Mean Corpuscular Volume 87.7 FL Mean Corpuscular Hemoglobin 29.1 PG Mean Corpuscular Hemoglobin Concent 33.1 % Red Cell Distribution Width 16.1 % Platelet Count 167 TH/MM3 Mean Platelet Volume 8.5 FL Neutrophils (%) (Auto) 61.3 % Lymphocytes (%) (Auto) 14.6 % Monocytes (%) (Auto) 12.6 % Eosinophils (%) (Auto) 10.4 % Basophils (%) (Auto) 1.1 % Neutrophils # (Auto) 4.0 TH/MM3 Lymphocytes # (Auto) 0.9 TH/MM3 Monocytes # (Auto) 0.8 TH/MM3 Eosinophils # (Auto) 0.7 TH/MM3 Basophils # (Auto) 0.1 TH/MM3 CBC Comment DIFF FINAL Differential Comment Blood Urea Nitrogen 10 MG/DL Creatinine 1.25 MG/DL Random Glucose 85 MG/DL Total Protein 7.9 GM/DL Albumin 3.3 GM/DL Calcium Level 8.9 MG/DL Magnesium Level 1.6 MG/DL Alkaline Phosphatase 68 U/L Aspartate Amino Transf (AST/SGOT) 30 U/L Alanine Aminotransferase (ALT/SGPT) 31 U/L Total Bilirubin 0.4 MG/DL Sodium Level 141 MEQ/L Potassium Level 4.0 MEQ/L Chloride Level 102 MEQ/L Carbon Dioxide Level 31.6 MEQ/L Anion Gap 7 MEQ/L Estimat Glomerular Filtration Rate 59 ML/MIN Troponin I LESS THAN 0.02 NG/ML B-Type Natriuretic Peptide LESS THAN 2 PG/ML Blood Gas Puncture Site RT RADIAL Blood Gas Patient Temperature 98.6 Blood Gas HCO3 31 mmol/L Blood Gas Base Excess 6.2 mmol/L Blood Gas Oxygen Saturation 88 % Arterial Blood pH 7.41 Arterial Blood Partial Pressure CO2 49 mmHg Arterial Blood Partial Pressure O2 60 mmHG Arterial Blood Oxygen Content 16.2 Vol % Arterial Blood Carboxyhemoglobin 2.9 % Arterial Blood Methemoglobin 0.6 % Blood Gas Hemoglobin 13.1 G/DL Oxygen Delivery Device NASAL CANNULA Blood Gas Liter Flow 4 L/M Urine Color YELLOW Urine Turbidity CLEAR Urine pH 5.5 Urine Specific [place] 1.040 Urine Protein NEG mg/dL Urine Glucose (UA) NEG mg/dL Urine Ketones NEG mg/dL Urine Occult Blood NEG Urine Nitrite NEG Urine Bilirubin NEG Urine Urobilinogen LESS THAN 2.0 MG/DL Urine Leukocyte Esterase NEG Urine RBC LESS THAN 1 /hpf Urine WBC 1 /hpf Urine Squamous Epithelial Cells 1 /hpf Urine Mucus FEW /lpf Microscopic Urinalysis Comment CULT NOT INDICATED Imaging Last Impressions Chest X-Ray 10/19/17 1720 Signed Impressions: Service Date/Time: Thursday, October 19, 2017 17:44 - CONCLUSION: No acute disease. Faisal Tran MD CT Angiography 10/19/17 0000 Signed Impressions: Service Date/Time: Thursday, October 19, 2017 19:58 - CONCLUSION: No evidence of pulmonary embolism Faisal Tran MD Objective Remarks GENERAL: A WDWN obese m an appearing in no acute distress. SKIN: Warm and dry. HEAD: Atraumatic. Normocephalic. NECK: Trachea midline. No JVD. CARDIOVASCULAR: Regular rate and rhythm, no murmur, no S3 or S4. RESPIRATORY: No accessory muscle use. Breath sounds diminished B/L, occasional wheezes heard, no crackles. GASTROINTESTINAL: Obese abdomen, Abdomen soft, non-tender, nondistended. No hepatosplenomegaly noted. Bowel sound present. MUSCULOSKELETAL: Extremities without clubbing, cyanosis, or edema. No obvious deformities. Distal pulses intact. Medications and IVs Current Medications Medications (Trade) Dose Ordered Sig/Kenzie Route PRN Reason Start Time Stop Time Status Last Admin Dose Admin Albuterol/ Ipratropium (Duoneb Neb) 1 ampule Q4HR NEB PRN NEB SOB/wheezing 10/19/17 21:45 Methylprednisolone Sodium Succinate (SoluMEDROL INJ) 40 mg Q6HR IV PUSH 10/20/17 00:00 10/20/17 06:41 Sodium Chloride (NS Flush) 2 ml UNSCH PRN IV FLUSH FLUSH AFTER USING IV ACCESS 10/19/17 21:45 Sodium Chloride (NS Flush) 2 ml BID IV FLUSH 10/20/17 09:00 Acetaminophen (Tylenol) 650 mg Q4H PRN PO TEMP > 100.4 10/19/17 21:45 Ondansetron HCl (Zofran Inj) 4 mg Q6H PRN IVP NAUSEA OR VOMITING 10/19/17 21:45 Heparin Sodium (Porcine) (Heparin Inj) 5,000 units Q8H SQ 10/19/17 22:00 10/20/17 06:42 Naloxone HCl (Narcan Inj) 0.4 mg UNSCH PRN IV PUSH SEE LABEL COMMENTS 10/19/17 21:45 Senna/Docusate Sodium (Criselda-Colace) 1 tab BID PO 10/20/17 09:00 Magnesium Hydroxide (Milk Of Magnesia Liq) 30 ml Q12H PRN PO Mild constipation 10/19/17 21:45 Sennosides (Senokot) 17.2 mg Q12H PRN PO Moderate constipation 10/19/17 21:45 Bisacodyl (Dulcolax Supp) 10 mg DAILY PRN RECTAL SEVERE CONSITIPATION 10/19/17 21:45 Lactulose (Lactulose Liq) 30 ml DAILY PRN PO SEVERE CONSITIPATION 10/19/17 21:45 Benztropine Mesylate (Cogentin) 1 mg HS PO 10/20/17 21:00 Budesonide/ Formoterol Fumarate (Symbicort 160-4.5 Mcg Inh) 2 puff Q12HR INH 10/20/17 09:00 Citalopram Hydrobromide (CeleXA) 40 mg HS PO 10/20/17 21:00 Hydroxyzine Pamoate (Vistaril) 50 mg Q6H PRN PO Itching/agitation 10/19/17 21:45 Tiotropium [place] (Spiriva Inh) 18 mcg DAILY INH 10/20/17 09:00 Risperidone (risperDAL) 2 mg HS PO 10/20/17 21:00 Dextrose (D50w (Vial) Inj) 50 ml UNSCH PRN IV PUSH HYPOGLYCEMIA-SEE COMMENTS 10/19/17 21:45 Glucagon (Glucagon Inj) 1 mg UNSCH PRN OTHER HYPOGLYCEMIA-SEE COMMENTS 10/19/17 21:45 Insulin Aspart (NovoLOG SUPPLEMENTAL SCALE) 1 ACHS SLIDING SCALE SQ 10/20/17 08:00 Levofloxacin/ Dextrose 150 ml @ 100 mls/hr Q24H IV 10/20/17 01:00 10/20/17 01:15 PFSH Past Medical History Depression: Yes High Cholesterol: Yes COPD: Yes Diabetes: Yes Patient Takes Glucophage: No Diminished Hearing: No Hypertension: Yes Tetanus Vaccination: > 5 Years Influenza Vaccination: No Past Surgical History Cholecystectomy: Yes Social History Alcohol Use: No Tobacco Use: No (Never used tobacco) Substance Use: No ASSESSMENT ASSESSMENT This is a 62 y/o male with a hx of hypertension, COPD, hyperlipidemia , and diabetes who became acutely short of breath yesterday evening while at home with an Oxygen sat of 75%. He is on 4L of home oxygen. When he became SOB he did not try a nebulizer or inhaler to alleviate his symptoms. He has had a productive cough that started at the same time. Pulmonary Embolism was ruled out by CT and x-ray showed no signs of pneumonia or CHF. He has no edema in extremities, no crackles in lungs, no JVD, and no S3/S4 so this is unlikely a CHF exacerbation. Based on physical exam, history, and lab findings, this is likely a COPD exacerbation that could be secondary to an infectious process or obesity. PLAN PLAN 1. COPD Exacerbation -DuoNebs PRN -levofloxacin- patient has a new cough with green sputum -oxygen via nasal cannula to keep sats >88% -ABG shows hypercarbia consistent with COPD history, pH- 7.4 -IV steroids -continue home Spiriva and Symbicort -CT was negative for PE, CXR was negative for consolidation or CHF 2. Hypertension -monitor BP and treat as needed 3. Diabetes -sliding scale insulin Neftali Osborn M3 Oct 20, 2017 10:29
[2017-10-20 10:37] LABS: AUTOMATED NEUTROPHIL # 6.6 TH/MM3 (1.8-7.7); BASOPHIL % 0.6 % (0.0-2.0); EOSINOPHIL % 0.1 % (0.0-4.0); HEMATOCRIT 41.8 % (39.0-51.0); LYMPH % 9.1 % (9.0-44.0); LYMPHOCYTE # 0.7 TH/MM3 (1.0-4.8); MEAN CELL VOLUME 86.1 FL (80.0-100.0); MEAN CORPUSCULAR HEMOGLOBIN 28.8 PG (27.0-34.0); MEAN CORPUSCULAR HGB CONC 33.4 % (32.0-36.0); MEAN PLATELET VOLUME 8.6 FL (7.0-11.0); MONO % 0.8 % (0.0-8.0); MONOCYTE # 0.1 TH/MM3 (0-0.9); NEUT % 89.4 % (16.0-70.0); PLATELET COUNT 157 TH/MM3 (150-450); RED BLOOD COUNT 4.86 MIL/MM3 (4.50-5.90); RED CELL DISTRIBUTION WIDTH 15.9 % (11.6-17.2); WHITE BLOOD COUNT 7.3 TH/MM3 (4.0-11.0)
[2017-10-20] MEDS: TIOTROPIUM BROMIDE 18 MCG INH INH SCH (13:05)
[2017-10-20] MEDS: BUDESONIDE-FORMOTEROL 160/4.5 MCG INHALER INH SCH ×2 (13:05→20:54)
--- NOTE | 2017-10-20 14:12 | EKG ---
Date Performed: 10/19/2017 Time Performed: 17:16:24 PTAGE: 62 years EKG: Sinus rhythm Compared to previous tracing previously seen nonspecific ST changes are less prominent NORMAL ECG PREVIOUS TRACING : 07/26/17 DOCTOR: Tu Gifford Interpretating Date/Time 10/20/2017 14:11:05
[2017-10-20] MEDS: INSULIN ASPART SUPPLEMENTAL SCALE SQ SCH ×2 (16:48→20:55)
--- NOTE | 2017-10-20 17:32 | MB ---
cc: Marylu Valero MD, [place] W MD DATE: 10/20/2017 REASON FOR CONSULTATION: COPD exacerbation, respiratory failure. HISTORY OF PRESENT ILLNESS: The patient is a 62-year-old male who is morbidly obese who presents with increasing shortness of breath for several days. He does have a history of COPD felt related to chronic asthma. The patient is a nonsmoker and has chronic respiratory failure, on oxygen therapy. He did have a cough, expectoration of greenish mucoid sputum. Denies history of fever, chill, hemoptysis, has no history of TB or previous industrial exposure. PAST MEDICAL HISTORY: COPD/bronchial asthma, diabetes mellitus, hypertension, hyperlipidemia, schizophrenia, question obstructive sleep apnea. MEDICATIONS AT HOME: 1. Oxygen 2 liter nasal cannula 2. Spiriva and Symbicort via inhalation 3. Metformin 4. Montelukast. 5. Risperidone. 6. Benztropine 7. ____. 8. Citalopram. 9. Hydroxyzine. ALLERGIES: NONE KNOWN TO MEDICATION. FAMILY HISTORY: Noncontributory. SYSTEMS REVIEW 12-point review of systems as per HPI and past history, otherwise negative. SOCIAL HISTORY: Does not smoke, does not drink, does not use drugs. PHYSICAL EXAMINATION: GENERAL: Patient alert. VITAL SIGNS: Temperature 98, pulse 80, respiration 18, blood pressure 120/70, oxygen saturation 95% on 4 liters oxygen. HEENT: Unremarkable. Eyes without icterus. NECK: Without adenopathy or thyroid enlargement. Central trachea. CHEST: No dullness to percussion. Few rhonchi at the bases on auscultation. CARDIAC: PMI not appreciated. S1, S2 audible. No murmur. No rub. ABDOMEN: Lax, bowel sounds audible. EXTREMITIES: No clubbing, cyanosis, 1+ edema. LABORATORY DATA: White count 6000, hemoglobin 13, hematocrit 40, platelets 167,000. Sodium 141, potassium 4.0, BUN 10, creatinine 1.25, glucose 85. IMAGING STUDIES: CT angiogram upon presentation without evidence of pulmonary embolism, without evidence of acute abnormality. IMPRESSION: 1. Chronic obstructive pulmonary disease/asthma exacerbation. 2. Morbid obesity. 3. Schizophrenia. 4. Sleep disordered breathing, obstructive sleep apnea, suspect. PLAN: The patient to continue oxygen therapy as well as bronchodilator therapy and antibiotic therapy for acute infection. His x-ray is without an acute infiltrate. We will follow his course along with you. Post-discharge we will proceed with polysomnographic evaluation to assess the severity of sleep disordered breathing and treat as needed. I do thank you for asking me to partake in Mr. Fox's care. Marylu Valero MD WWW// , 04:28 PM , 05:03 PM
[2017-10-20] MEDS: CITALOPRAM HYDROBROMIDE 40 MG TAB PO SCH (20:49)
[2017-10-20] MEDS: BENZTROPINE MESYLATE 1 MG TAB PO SCH (20:49)
[2017-10-20] MEDS: risperiDONE 1 MG TAB PO SCH (20:49)
[2017-10-21] VITALS: BP 147/72; PULSE 81; RESP 20; TEMP 97.9; O2SAT 97
[2017-10-21] MEDS: methylPREDNISolone SOD SUCC 40 MG/1 ML VIAL IV PUSH SCH ×4 (00:18→17:29)
[2017-10-21] MEDS: LEVOFLOXACIN 750 MG PREMIX INJ 150 ML IV SCH (00:19)
[2017-10-21] MEDS: HEPARIN SODIUM - SQ 10,000 UNITS/ML VIAL SQ SCH (06:39)
[2017-10-21 08:00] VITALS: BP 151/80; PULSE 66; RESP 20; TEMP 98.1; O2SAT 95
[2017-10-21] MEDS: BUDESONIDE-FORMOTEROL 160/4.5 MCG INHALER INH SCH ×2 (08:20→21:29)
[2017-10-21] MEDS: TIOTROPIUM BROMIDE 18 MCG INH INH SCH (08:20)
[2017-10-21] MEDS: INSULIN ASPART SUPPLEMENTAL SCALE SQ SCH ×4 (08:21→21:00)
[2017-10-21] MEDS: DOCUSATE SODIUM 50 MG/SENNA 8.6 MG TAB PO SCH ×2 (08:22→21:00)
[2017-10-21] MEDS: SODIUM CHLORIDE 0.9% FLUSH 10 ML FLUSH IV FLUSH SCH ×2 (08:22→21:29)
--- NOTE | 2017-10-21 10:39 | HHI.PR ---
Subjective Remarks IMPRESSION COPD EXACERBATION RESPIRATORY FAILURE MORBID OBESITY ? SHADIA PLAN O2 NEEDED BRONCHODILATOR THERAPY NPSG POST D/C LOOSE WEIGHT Objective Vital Signs Date Time Temp Pulse Resp B/P (MAP) Pulse Ox O2 Delivery O2 Flow Rate FiO2 10/21/17 10:27 95 Nasal Cannula 4.00 10/21/17 08:00 98.1 66 20 151/80 (103) 95 10/21/17 00:00 97.9 81 20 147/72 (97) 97 10/20/17 20:00 97.7 76 22 143/62 (89) 95 10/20/17 16:00 97.7 72 20 137/81 (99) 98 10/20/17 13:03 97 Nasal Cannula 4.00 10/20/17 12:00 97.4 69 20 115/90 (98) 92 I/O 10/20/17 10/20/17 10/20/17 10/21/17 10/21/17 10/21/17 07:00 15:00 23:00 07:00 15:00 23:00 Intake Total 150 ml 720 ml 320 ml Output Total 1000 ml 1350 ml 400 ml Balance 150 ml -280 ml -1030 ml -400 ml Intake Oral 720 ml 320 ml IV Total 150 ml Output Urine Total 1000 ml 1350 ml 400 ml # Bowel Movements 0 0 Result Diagram: 10/20/1742 10/20/1742 Marylu Valero MD Oct 21, 2017 10:38
[2017-10-21 12:00] VITALS: BP_SYST 165; BP_SYST 92; BP_DIAS 53; BP_DIAS 86; PULSE 63; PULSE 88; RESP 18; RESP 19; TEMP 97.7; O2SAT 95; O2SAT 96
--- NOTE | 2017-10-21 12:18 | HHI.PR ---
Subjective Remarks Bloody bowel movement overnight. Heparin will be discontinued, which will hopefully discontinue his bleeding. Etiology of bleed is uncertain. Patient has a past history of colon cancer. He says it has been greater than 5 years since his last colonoscopy. His respiratory status continues to improve, though he is not back to baseline. Objective Vital Signs Date Time Temp Pulse Resp B/P (MAP) Pulse Ox O2 Delivery O2 Flow Rate FiO2 10/21/17 10:27 95 Nasal Cannula 4.00 10/21/17 08:00 98.1 66 20 151/80 (103) 95 10/21/17 00:00 97.9 81 20 147/72 (97) 97 10/20/17 20:00 97.7 76 22 143/62 (89) 95 10/20/17 16:00 97.7 72 20 137/81 (99) 98 10/20/17 13:03 97 Nasal Cannula 4.00 I/O 10/20/17 10/20/17 10/20/17 10/21/17 10/21/17 10/21/17 07:00 15:00 23:00 07:00 15:00 23:00 Intake Total 150 ml 720 ml 320 ml Output Total 1000 ml 1350 ml 400 ml Balance 150 ml -280 ml -1030 ml -400 ml Intake Oral 720 ml 320 ml IV Total 150 ml Output Urine Total 1000 ml 1350 ml 400 ml # Bowel Movements 0 0 Result Diagram: 10/20/1742 10/20/17941 Objective Remarks GENERAL: NAD, A&Ox3 HEAD: Normocephalic. NECK: Supple, trachea midline. No lymphadenopathy. EYES: No scleral icterus. No injection or drainage. CARDIOVASCULAR: Regular rate and rhythm without murmurs, gallops, or rubs. RESPIRATORY: Breath sounds equal bilaterally. No accessory muscle use. GASTROINTESTINAL: Abdomen soft, non-tender, nondistended. MUSCULOSKELETAL: No cyanosis, or edema. SKIN: Warm and dry. NEURO: No focal neurological deficitis. A/P Problem List: (1) GI bleed ICD Code: K92.2 - Gastrointestinal hemorrhage, unspecified (2) Hypoxia ICD Code: R09.02 - Hypoxemia (3) Obesity ICD Code: E66.9 - Obesity, unspecified Status: Acute (4) Respiratory failure ICD Code: J96.90 - Respiratory failure, unspecified, unspecified whether with hypoxia or hypercapnia Assessment and Plan 62-year-old male admitted secondary to acute respiratory failure and hypoxia with COPD exacerbation related to pneumonia. Acute respiratory failure Hypoxia COPD exacerbation Pneumonia Baseline obesity hypoventilation syndrome Continue Levaquin Continue steroids Continue breathing treatments Continue Spiriva and Symbicort GI bleed History of colon cancer Subcutaneous heparin discontinued Follow CBC GI devops consultant Diabetes mellitus type 2 Follow blood sugars Insulin sliding scale Diabetic diet Dysuria No signs of urinary tract infection Follow clinically Schizophrenia Continue citalopram Continue risperidone Hypertension Continue baseline treatment Follow blood pressures Adjust treatments as needed Hyperlipidemia Continue present treatment Follow as an outpatient DVT prophylaxis Bleeding has occurred with heparin Heparin discontinued SCDs Dheeraj Burnett MD Oct 21, 2017 12:18
[2017-10-21] MEDS ORDERED: PILL SPLITTER OTHER PRN (14:15)
--- NOTE | 2017-10-21 14:30 | PD.CONS ---
HPI History of Present Illness This is a 62 year old morbidly obese male who came into the hospital on 2017 with symptoms of cough, shortness of breath, and productive green sputum. Patient notes that he has been in the hospital in July and August of this year for respiratory failure and symptomatic COPD. Patient is now on home O2 4 L per nasal cannula. On admission patient was placed on subcu heparin and today had an episode of bright red rectal bleeding. Patient does note some problems with constipation during the last few days and he was straining to defecate. Subcu heparin has been DC'd and patient is no longer bleeding. Patient denies any history of hemorrhoids to his knowledge. Before this hospital admission patient notes symptoms of diarrhea off and on for the past 17 years since he has been in the [facility]. He notes bowel movements anywhere from 0-3 times a day never associated it with any type of food or aggregating factor. He does have alternating symptoms of constipation at times. Patient has a history of colon cancer that was diagnosed in 2011 he received no type of surgery that was his last colonoscopy. He was treated with chemotherapy and radiation and to his knowledge has never had any further symptoms or problems except for his functional diarrhea and occasional constipation. Patient denies any dysphasia no nausea, no vomiting, and no hematemesis. Patient denies any abdominal pain. He has no family history of colon cancer. (Brigette Kohler) PFSH Past Medical History Diabetes mellitus Hypertension Hyperlipidemia COPD Schizophrenia Rectal cancer in 2011 Respiratory failure Home O2 now at 4 L Past Surgical History Cholecystectomy (Brigette Kohler) Coded Allergies: No Known Allergies (Verified Adverse Reaction, Unknown, 10/19/17) Medications Administered Medications Medications (Trade) Dose Ordered Sig/Kenzie Route PRN Reason Start Time Stop Time Status Last Admin Dose Admin Methylprednisolone Sodium Succinate (SoluMEDROL INJ) 40 mg Q6HR IV PUSH 10/20/17 00:00 10/21/17 12:29 Sodium Chloride (NS Flush) 2 ml BID IV FLUSH 10/20/17 09:00 10/21/17 08:22 Senna/Docusate Sodium (Criselda-Colace) 1 tab BID PO 10/20/17 09:00 10/21/17 08:22 Benztropine Mesylate (Cogentin) 1 mg HS PO 10/20/17 21:00 10/20/17 20:49 Budesonide/ Formoterol Fumarate (Symbicort 160-4.5 Mcg Inh) 2 puff Q12HR INH 10/20/17 09:00 10/21/17 08:20 Citalopram Hydrobromide (CeleXA) 40 mg HS PO 10/20/17 21:00 10/20/17 20:49 Tiotropium [place] (Spiriva Inh) 18 mcg DAILY INH 10/20/17 09:00 10/21/17 08:20 Risperidone (risperDAL) 2 mg HS PO 10/20/17 21:00 10/20/17 20:49 Insulin Aspart (NovoLOG SUPPLEMENTAL SCALE) 1 ACHS SLIDING SCALE SQ 10/20/17 08:00 10/21/17 12:29 Levofloxacin/ Dextrose 150 ml @ 100 mls/hr Q24H IV 10/20/17 01:00 10/21/17 00:19 Family History Mother with CAD No family history of colon cancer Social History Never smoker. Denies alcohol, illicit drugs. Family member is at his bedside. patient is (Brigette Kohler) Review of Systems Gastrointestinal: COMPLAINS OF: Bloody stools (1 today), Constipation, Diarrhea (Chronic but not acute) Morbid obesity (Brigette Kohler) GI Exam Vitals I&O Vital Signs Date Time Temp Pulse Resp B/P (MAP) Pulse Ox O2 Delivery O2 Flow Rate FiO2 10/21/17 12:00 97.7 63 19 165/86 (112) 95 10/21/17 10:27 95 Nasal Cannula 4.00 10/21/17 08:00 98.1 66 20 151/80 (103) 95 10/21/17 00:00 97.9 81 20 147/72 (97) 97 10/20/17 20:00 97.7 76 22 143/62 (89) 95 10/20/17 16:00 97.7 72 20 137/81 (99) 98 I/O 10/20/17 10/20/17 10/20/17 10/21/17 10/21/17 10/21/17 07:00 15:00 23:00 07:00 15:00 23:00 Intake Total 150 ml 720 ml 320 ml Output Total 1000 ml 1350 ml 400 ml Balance 150 ml -280 ml -1030 ml -400 ml Intake Oral 720 ml 320 ml IV Total 150 ml Output Urine Total 1000 ml 1350 ml 400 ml # Bowel Movements 0 0 Imaging Last Impressions Chest X-Ray 10/19/17 1720 Signed Impressions: Service Date/Time: Thursday, October 19, 2017 17:44 - CONCLUSION: No acute disease. Faisal Tran MD CT Angiography 10/19/17 0000 Signed Impressions: Service Date/Time: Thursday, October 19, 2017 19:58 - CONCLUSION: No evidence of pulmonary embolism Faisal Tran MD Laboratory Laboratory Tests Test 10/19/17 17:30 10/19/17 18:43 10/20/17 01:20 10/20/17 09:42 White Blood Count 6.5 TH/MM3 7.3 TH/MM3 Red Blood Count 4.62 MIL/MM3 4.86 MIL/MM3 Hemoglobin 13.4 GM/DL 14.0 GM/DL Hematocrit 40.5 % 41.8 % Mean Corpuscular Volume 87.7 FL 86.1 FL Mean Corpuscular Hemoglobin 29.1 PG 28.8 PG Mean Corpuscular Hemoglobin Concent 33.1 % 33.4 % Red Cell Distribution Width 16.1 % 15.9 % Platelet Count 167 TH/MM3 157 TH/MM3 Mean Platelet Volume 8.5 FL 8.6 FL Neutrophils (%) (Auto) 61.3 % 89.4 % Lymphocytes (%) (Auto) 14.6 % 9.1 % Monocytes (%) (Auto) 12.6 % 0.8 % Eosinophils (%) (Auto) 10.4 % 0.1 % Basophils (%) (Auto) 1.1 % 0.6 % Neutrophils # (Auto) 4.0 TH/MM3 6.6 TH/MM3 Lymphocytes # (Auto) 0.9 TH/MM3 0.7 TH/MM3 Monocytes # (Auto) 0.8 TH/MM3 0.1 TH/MM3 Eosinophils # (Auto) 0.7 TH/MM3 0.0 TH/MM3 Basophils # (Auto) 0.1 TH/MM3 0.0 TH/MM3 CBC Comment DIFF FINAL DIFF FINAL Differential Comment Blood Urea Nitrogen 10 MG/DL 9 MG/DL Creatinine 1.25 MG/DL 1.25 MG/DL Random Glucose 85 MG/DL 187 MG/DL Total Protein 7.9 GM/DL Albumin 3.3 GM/DL Calcium Level 8.9 MG/DL 8.9 MG/DL Magnesium Level 1.6 MG/DL Alkaline Phosphatase 68 U/L Aspartate Amino Transf (AST/SGOT) 30 U/L Alanine Aminotransferase (ALT/SGPT) 31 U/L Total Bilirubin 0.4 MG/DL Sodium Level 141 MEQ/L 137 MEQ/L Potassium Level 4.0 MEQ/L 4.7 MEQ/L Chloride Level 102 MEQ/L 100 MEQ/L Carbon Dioxide Level 31.6 MEQ/L 25.6 MEQ/L Anion Gap 7 MEQ/L 11 MEQ/L Estimat Glomerular Filtration Rate 59 ML/MIN 59 ML/MIN Troponin I LESS THAN 0.02 NG/ML B-Type Natriuretic Peptide LESS THAN 2 PG/ML Blood Gas Puncture Site RT RADIAL Blood Gas Patient Temperature 98.6 Blood Gas HCO3 31 mmol/L Blood Gas Base Excess 6.2 mmol/L Blood Gas Oxygen Saturation 88 % Arterial Blood pH 7.41 Arterial Blood Partial Pressure CO2 49 mmHg Arterial Blood Partial Pressure O2 60 mmHG Arterial Blood Oxygen Content 16.2 Vol % Arterial Blood Carboxyhemoglobin 2.9 % Arterial Blood Methemoglobin 0.6 % Blood Gas Hemoglobin 13.1 G/DL Oxygen Delivery Device NASAL CANNULA Blood Gas Liter Flow 4 L/M Urine Color YELLOW Urine Turbidity CLEAR Urine pH 5.5 Urine Specific Rosalie 1.040 Urine Protein NEG mg/dL Urine Glucose (UA) NEG mg/dL Urine Ketones NEG mg/dL Urine Occult Blood NEG Urine Nitrite NEG Urine Bilirubin NEG Urine Urobilinogen LESS THAN 2.0 MG/DL Urine Leukocyte Esterase NEG Urine RBC LESS THAN 1 /hpf Urine WBC 1 /hpf Urine Squamous Epithelial Cells 1 /hpf Urine Mucus FEW /lpf Microscopic Urinalysis Comment CULT NOT INDICATED Hematology Comments Physical Examination HEENT:normocephalic; atraumatic; no jaundice. NECK: Neck is supple, short, obese CHEST: Generalized diminished breath sounds but no obvious rhonchi, minimal mild wheeze CARDIAC: Regular rate and rhythm distant heart sounds ABDOMEN: Large, round, taut, nontender; no hepatosplenomegaly; bowel sounds are present in all four quadrants. EXTREMITIES: Mild lower extremity edema. SKIN: Normal; no rash; no jaundice. DIRECTOR OF DANCE: No focal deficits; alert and oriented times three. 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 Patient had constipation over the last few days probably secondary to some mild dehydration and had a bright red bloody stool 1 today. Patient had been placed on subcu heparin which is now been DC'd. Patient has a significant history of rectal cancer in 2011 that required no surgical intervention. Patient did have radiation and chemotherapy and to his knowledge had no further issues. No family history of colon cancer last colonoscopy was greater than 5 years ago. No known hemorrhoids and no further rectal bleeding for now. Patient also notes urethral stricture which had been followed by urology pending some possible procedure, but currently on hold since patient has had multiple recent hospital stays for respiratory issues. Constipation possible secondary to patient's recent upper respiratory infection and dehydration. Plan CT scan of the abdomen and pelvis If patient has rectal bleeding this weekend consider flex sigmoid Pepcid Tucks pads as needed Zofran MiraLAX daily Monitor labs with special attention to hemoglobin will recheck CBC in the morning Monitor labs Plan colonoscopy with Huber Tuesday a.m., procedure has been explained to patient and his , hold any blood thinners Patient's been seen per myself and Dr. Gaffney, this note was written on her behalf (Brigette Kohler) Physician Comments seen, examined agree with above he had his colonoscopy with dr stephen at [facility]-we will obtain records (Geno Gaffney MD) Brigette Kohler Oct 21, 2017 14:30 Geno Gaffney MD Oct 21, 2017 15:23
[2017-10-21] MEDS ORDERED: WITCH HAZEL 50%/GLYCERIN 12.5% 40 PAD JAR TOPICAL PRN (14:45)
[2017-10-21 16:00] VITALS: BP 146/85; PULSE 63; RESP 19; TEMP 97.7; O2SAT 94
[2017-10-21] MEDS ORDERED: DIATRIZOATE MEGLUM/DIATRIZOATE SOD 9 ML CUP PO ONE (16:00)
[2017-10-21] MEDS: POLYETHYLENE GLYCOL 17 GM PKG PO SCH (17:30)
[2017-10-21 20:00] VITALS: BP 133/78; PULSE 59; RESP 16; TEMP 97.6; O2SAT 95
[2017-10-21] MEDS ORDERED: IOHEXOL 350 MG/ML 10 ML VIAL (for RAD DIAG) IVCONTRAST ONE (20:48)
[2017-10-21] MEDS: CITALOPRAM HYDROBROMIDE 40 MG TAB PO SCH (21:30)
[2017-10-21] MEDS: risperiDONE 1 MG TAB PO SCH (21:30)
[2017-10-21] MEDS: FAMOTIDINE 20 MG TAB PO SCH (21:30)
[2017-10-21] MEDS: BENZTROPINE MESYLATE 1 MG TAB PO SCH (21:30)
--- NOTE | 2017-10-21 21:58 | RADRPT ---
EXAM DATE/TIME: 10/21/2017 20:45 [facility] COMPARISON: CT ABDOMEN & PELVIS W CONTRAST, February 12, 2016, 20:25. INDICATIONS : Blood in stool IV CONTRAST: 97 cc Omnipaque 350 (iohexol) IV ORAL CONTRAST: Prescribed oral contrast ingested. RADIATION DOSE: 27.16 CTDIvol (mGy) ; Patient body habitus MEDICAL HISTORY : Cardiovascular disease. Hypertension. Diabetes mellitus type 1.Rectal cancer SURGICAL HISTORY : Cholecystectomy. ENCOUNTER: Initial ACUITY: 1 day PAIN SCALE: 4/10 LOCATION: abdomen TECHNIQUE: Volumetric scanning of the abdomen and pelvis was performed. Using automated exposure control and ad justment of the mA and/or kV according to patient size, radiation dose was kept as low as reasonably achievable to obtain optimal diagnostic quality images. DICOM format image data is available electro nically for review and comparison. FINDINGS: LOWER LUNGS: The visualized lower lungs are clear. LIVER: There is diffuse decreased attenuation to the liver. The patient is status post cholecystectomy. SPLEEN: Normal size without lesion. PANCREAS: Within normal limits. KIDNEYS: Normal in size and shape. There is no mass, stone or hydronephrosis. ADRENAL GLANDS: Within normal limits. VASCULAR: There is no aortic aneurysm. BOWEL/MESENTERY: The stomach, small bowel, and colon demonstrate no acute abnormality. There is no free intraperitone al air or fluid. ABDOMINAL WALL: Within normal limits. RETROPERITONEUM: There is no lymphadenopathy. BLADDER: No wall thickening or mass. REPRODUCTIVE: Within normal limits. INGUINAL: There is no lymphadenopathy or hernia. MUSCULOSKELETAL: There is degenerative change of the lumbar spine. CONCLUSION: 1. No acute abnormality seen. 2. Hepatic steatosis. Faisal Dior MD on October 21, 2017 at 21:52 Board Certified Radiologist. This report was verified electronically.
[2017-10-22] VITALS: BP 129/73; PULSE 67; RESP 16; TEMP 98.1; O2SAT 94
[2017-10-22] MEDS: methylPREDNISolone SOD SUCC 40 MG/1 ML VIAL IV PUSH SCH ×4 (00:18→17:10)
[2017-10-22] MEDS: LEVOFLOXACIN 750 MG PREMIX INJ 150 ML IV SCH (00:18)
[2017-10-22] MEDS: INSULIN ASPART SUPPLEMENTAL SCALE SQ SCH ×4 (07:49→20:02)
[2017-10-22 08:00] VITALS: BP 161/84; PULSE 63; RESP 19; TEMP 97.4; O2SAT 92
[2017-10-22] MEDS: DOCUSATE SODIUM 50 MG/SENNA 8.6 MG TAB PO SCH ×2 (08:10→20:00)
[2017-10-22] MEDS: POLYETHYLENE GLYCOL 17 GM PKG PO SCH (08:10)
[2017-10-22] MEDS: FAMOTIDINE 20 MG TAB PO SCH ×2 (08:13→20:01)
[2017-10-22] MEDS: TIOTROPIUM BROMIDE 18 MCG INH INH SCH (08:14)
[2017-10-22] MEDS: BUDESONIDE-FORMOTEROL 160/4.5 MCG INHALER INH SCH ×2 (08:14→19:56)
[2017-10-22] MEDS: SODIUM CHLORIDE 0.9% FLUSH 10 ML FLUSH IV FLUSH SCH ×2 (08:14→20:01)
[2017-10-22 08:17] LABS: ALBUMIN 3.2 GM/DL (3.4-5.0); ALKALINE PHOSPHATASE 61 U/L (45-117); ALT (GPT) 29 U/L (12-78); AST (GOT) 36 U/L (15-37); BICARBONATE 30.4 MEQ/L (21.0-32.0); BLOOD UREA NITROGEN 20 MG/DL (7-18); CALCIUM 9.4 MG/DL (8.5-10.1); CHLORIDE 104 MEQ/L (98-107); GLOMERULAR FILTRATION RATE 68 ML/MIN (>89); GLUCOSE,RANDOM 133 MG/DL (74-106); SODIUM (NA) 142 MEQ/L (136-145); TOTAL BILIRUBIN ADULT 0.4 MG/DL (0.2-1.0); TOTAL PROTEIN 7.6 GM/DL (6.4-8.2)
[2017-10-22 08:50] LABS: AUTOMATED NEUTROPHIL # 11.8 TH/MM3 (1.8-7.7); BASOPHIL % 0.1 % (0.0-2.0); HEMATOCRIT 40.7 % (39.0-51.0); HEMOGLOBIN 13.4 GM/DL (13.0-17.0); LYMPHOCYTE # 0.8 TH/MM3 (1.0-4.8); MEAN CELL VOLUME 86.8 FL (80.0-100.0); MEAN CORPUSCULAR HEMOGLOBIN 28.6 PG (27.0-34.0); MEAN CORPUSCULAR HGB CONC 32.9 % (32.0-36.0); MEAN PLATELET VOLUME 8.7 FL (7.0-11.0); MONOCYTE # 0.4 TH/MM3 (0-0.9); NEUT % 90.9 % (16.0-70.0); PLATELET COUNT 180 TH/MM3 (150-450); RED BLOOD COUNT 4.69 MIL/MM3 (4.50-5.90); RED CELL DISTRIBUTION WIDTH 15.5 % (11.6-17.2)
--- NOTE | 2017-10-22 11:44 | HHI.PR ---
Subjective Remarks Patient is lying in bed in NAD. On 4L oxygen. Objective Vital Signs Vital Signs Date Time Temp Pulse Resp B/P (MAP) Pulse Ox O2 Delivery O2 Flow Rate FiO2 10/22/17 08:00 97.4 63 19 161/84 (109) 92 10/22/17 00:00 98.1 67 16 129/73 (91) 94 10/21/17 21:30 Nasal Cannula 4.00 10/21/17 20:00 97.6 59 16 133/78 (96) 95 10/21/17 16:00 97.7 63 19 146/85 (105) 94 10/21/17 12:00 97.7 63 19 165/86 (112) 95 I/O 10/21/17 10/21/17 10/21/17 10/22/17 10/22/17 10/22/17 07:00 15:00 23:00 07:00 15:00 23:00 Intake Total 320 ml 1200 ml 390 ml Output Total 1350 ml 400 ml 900 ml 500 ml Balance -1030 ml -400 ml 300 ml -110 ml Intake Oral 320 ml 1200 ml 240 ml IV Total 150 ml Output Urine Total 1350 ml 400 ml 900 ml 500 ml # Voids 2 2 # Bowel Movements 0 3 10 Result Diagram: 10/22/17 0620 10/22/17 0620 Other Results Last Impressions Abdomen/Pelvis CT 10/21/17 0000 Signed Impressions: Service Date/Time: Saturday, October 21, 2017 20:45 - CONCLUSION: 1. No acute abnormality seen. 2. Hepatic steatosis. Faisal Dior MD Chest X-Ray 10/19/17 1720 Signed Impressions: Service Date/Time: Thursday, October 19, 2017 17:44 - CONCLUSION: No acute disease. Faisal Tran MD CT Angiography 10/19/17 0000 Signed Impressions: Service Date/Time: Thursday, October 19, 2017 19:58 - CONCLUSION: No evidence of pulmonary embolism Faisal Tran MD Objective Remarks GENERAL: Patient is 62 yo lying in bed in NAD SKIN: Warm and dry. HEAD: Normocephalic. EYES: No scleral icterus. No injection or drainage. NECK: Supple, trachea midline. No JVD or lymphadenopathy. CARDIOVASCULAR: Regular rate and rhythm without murmurs, gallops, or rubs. RESPIRATORY: Breath sounds equal bilaterally. No accessory muscle use. GASTROINTESTINAL: Abdomen soft, non-tender, nondistended. MUSCULOSKELETAL: No cyanosis, or edema. Neuro: Awake and alert A/P Assessment and Plan 1)Resp Insuff 2)COPD exac- on 4L home oxygen 3)Obesity, ? SHADIA 4)Obesity hypoventilation syndrome 5)HTN 6)DM Plan Continue with oxygen keep sats >92% Bronchodilators ( DuoNeb, Symbicort, Spiriva) Continue Solumederol 40mg Q6 NIPPV PRN for resp distress Sleep study and PFT as outpatient CXR 10/21: No acute disease CTA chest 10/19: No PE Continue with Levaquin monitor for signs of infections ( Fever, WBC) GI/DVT prophylaxis per primary team Diane Saleh MD Oct 22, 2017 11:44
[2017-10-22 12:00] VITALS: BP 137/75; PULSE 74; RESP 20; TEMP 97.8; O2SAT 92
--- NOTE | 2017-10-22 12:24 | HHI.GIFU ---
Subjective Remarks Pt states 4 BMs yesterday and none today Denies abdominal pain, nausea, vomiting Tolerating clear liquids Objective Vitals I&O Vital Signs Date Time Temp Pulse Resp B/P (MAP) Pulse Ox O2 Delivery O2 Flow Rate FiO2 10/22/17 08:00 97.4 63 19 161/84 (109) 92 10/22/17 00:00 98.1 67 16 129/73 (91) 94 10/21/17 21:30 Nasal Cannula 4.00 10/21/17 20:00 97.6 59 16 133/78 (96) 95 10/21/17 16:00 97.7 63 19 146/85 (105) 94 I/O 10/21/17 10/21/17 10/21/17 10/22/17 10/22/17 10/22/17 07:00 15:00 23:00 07:00 15:00 23:00 Intake Total 320 ml 1200 ml 390 ml Output Total 1350 ml 400 ml 900 ml 500 ml Balance -1030 ml -400 ml 300 ml -110 ml Intake Oral 320 ml 1200 ml 240 ml IV Total 150 ml Output Urine Total 1350 ml 400 ml 900 ml 500 ml # Voids 2 2 # Bowel Movements 0 3 10 Laboratory Laboratory Tests Test 10/22/17 06:20 White Blood Count 13.0 Red Blood Count 4.69 Hemoglobin 13.4 Hematocrit 40.7 Mean Corpuscular Volume 86.8 Mean Corpuscular Hemoglobin 28.6 Mean Corpuscular Hemoglobin Concent 32.9 Red Cell Distribution Width 15.5 Platelet Count 180 Mean Platelet Volume 8.7 Neutrophils (%) (Auto) 90.9 Lymphocytes (%) (Auto) 6.0 Monocytes (%) (Auto) 3.0 Eosinophils (%) (Auto) 0.0 Basophils (%) (Auto) 0.1 Neutrophils # (Auto) 11.8 Lymphocytes # (Auto) 0.8 Monocytes # (Auto) 0.4 Eosinophils # (Auto) 0.0 Basophils # (Auto) 0.0 CBC Comment AUTO DIFF Differential Comment AUTO DIFF CONFIRMED Blood Urea Nitrogen 20 Creatinine 1.10 Random Glucose 133 Total Protein 7.6 Albumin 3.2 Calcium Level 9.4 Alkaline Phosphatase 61 Aspartate Amino Transf (AST/SGOT) 36 Alanine Aminotransferase (ALT/SGPT) 29 Total Bilirubin 0.4 Sodium Level 142 Potassium Level 4.2 Chloride Level 104 Carbon Dioxide Level 30.4 Anion Gap 8 Estimat Glomerular Filtration Rate 68 Imaging Last Impressions Abdomen/Pelvis CT 10/21/17 0000 Signed Impressions: Service Date/Time: Saturday, October 21, 2017 20:45 - CONCLUSION: 1. No acute abnormality seen. 2. Hepatic steatosis. Faisal Dior MD Chest X-Ray 10/19/17 1720 Signed Impressions: Service Date/Time: Thursday, October 19, 2017 17:44 - CONCLUSION: No acute disease. Faisal Tran MD CT Angiography 10/19/17 0000 Signed Impressions: Service Date/Time: Thursday, October 19, 2017 19:58 - CONCLUSION: No evidence of pulmonary embolism Faisal Tran MD Physical Exam HEENT: Normocephalic; atraumatic CHEST: Even/unlabored CARDIAC: ABDOMEN: Soft, nondistended, nontender; bowel sounds active . SKIN: Normal; no rash; no jaundice. 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 Assessment and Plan Assessment: (1) GI bleed ICD Codes: K92.2 - Gastrointestinal hemorrhage, unspecified Plan Assessment: - Rectal bleeding- now resolved History of anal cancer S/P chemoradiation- no surgical intervention EUS rectal (03/2014) --> Rectal exam showed skin tags and perianal erythema. The sphincter tone was diminished. In the rectum, some nodularity was noticed close to the dental line. Normal wall layers. No significant adjacent lymph nodes. Last colonoscopy over [address] abdomen and pelvis W contrast (10/21) --> No acute abnormality seen. Hepatic steatosis. - PNA- On Levaquin, steroids, and breathing treatments - on 4 L o2 via NC Plan Colonoscopy Tuesday Obtain consent Clear liquids tomorrow Magnesium Citrate prep NPO after MN Tuesday Monitor H/H Transfuse as needed Further recommendations based on findings of above Pt has been seen and examined by myself and Dr. Bragg and this note is written on his behalf Angelica Pedraza Oct 22, 2017 12:24
[2017-10-22 16:00] VITALS: BP 144/70; PULSE 55; RESP 20; TEMP 97.8; O2SAT 92
--- NOTE | 2017-10-22 16:36 | HHI.PR ---
Subjective Remarks No acute distress today. No further bloody bowel movements. Heparin is discontinued. Patient's breathing is slightly improved. Plan for colonoscopy on Tuesday. Objective Vital Signs Date Time Temp Pulse Resp B/P (MAP) Pulse Ox O2 Delivery O2 Flow Rate FiO2 10/22/17 12:00 97.8 74 20 137/75 (95) 92 10/22/17 08:00 97.4 63 19 161/84 (109) 92 10/22/17 00:00 98.1 67 16 129/73 (91) 94 10/21/17 21:30 Nasal Cannula 4.00 10/21/17 20:00 97.6 59 16 133/78 (96) 95 I/O 10/21/17 10/21/17 10/21/17 10/22/17 10/22/17 10/22/17 07:00 15:00 23:00 07:00 15:00 23:00 Intake Total 320 ml 1200 ml 390 ml Output Total 1350 ml 400 ml 900 ml 500 ml Balance -1030 ml -400 ml 300 ml -110 ml Intake Oral 320 ml 1200 ml 240 ml IV Total 150 ml Output Urine Total 1350 ml 400 ml 900 ml 500 ml # Voids 2 2 # Bowel Movements 0 3 10 Result Diagram: 10/22/1761910/22/17619 Objective Remarks GENERAL: NAD, A&Ox3 HEAD: Normocephalic. NECK: Supple, trachea midline. No lymphadenopathy. EYES: No scleral icterus. No injection or drainage. CARDIOVASCULAR: Regular rate and rhythm without murmurs, gallops, or rubs. RESPIRATORY: Breath sounds equal bilaterally. No accessory muscle use. GASTROINTESTINAL: Abdomen soft, non-tender, nondistended. MUSCULOSKELETAL: No cyanosis, or edema. SKIN: Warm and dry. NEURO: No focal neurological deficitis. A/P Problem List: (1) GI bleed ICD Code: K92.2 - Gastrointestinal hemorrhage, unspecified (2) Hypoxia ICD Code: R09.02 - Hypoxemia (3) Obesity ICD Code: E66.9 - Obesity, unspecified Status: Acute (4) Respiratory failure ICD Code: J96.90 - Respiratory failure, unspecified, unspecified whether with hypoxia or hypercapnia Assessment and Plan 62-year-old male admitted secondary to acute respiratory failure and hypoxia with COPD exacerbation related to pneumonia. Follow CBC. Continue to monitor electrolytes. Follow for recurrence of bloody bowel movement. Labs ordered for further monitoring. Acute respiratory failure Hypoxia COPD exacerbation Pneumonia Baseline obesity hypoventilation syndrome Continue Levaquin Continue steroids Continue breathing treatments Continue Spiriva and Symbicort GI bleed History of colon cancer Subcutaneous heparin discontinued Follow CBC GI solutions consultant Diabetes mellitus type 2 Follow blood sugars Insulin sliding scale Diabetic diet Dysuria No signs of urinary tract infection Follow clinically Schizophrenia Continue citalopram Continue risperidone Hypertension Continue baseline treatment Follow blood pressures Adjust treatments as needed Hyperlipidemia Continue present treatment Follow as an outpatient DVT prophylaxis Bleeding has occurred with heparin Heparin discontinued SCDs Dheeraj Burnett MD Oct 22, 2017 16:36
[2017-10-22] MEDS: BENZTROPINE MESYLATE 1 MG TAB PO SCH (19:56)
[2017-10-22] MEDS: CITALOPRAM HYDROBROMIDE 40 MG TAB PO SCH (19:56)
[2017-10-22] MEDS: risperiDONE 1 MG TAB PO SCH (19:57)
[2017-10-22 20:00] VITALS: BP 115/60; PULSE 53; RESP 17; TEMP 97.2; O2SAT 93
[2017-10-23] VITALS: BP 121/76; PULSE 53; RESP 17; TEMP 97.3; O2SAT 94
[2017-10-23] MEDS: methylPREDNISolone SOD SUCC 40 MG/1 ML VIAL IV PUSH SCH ×3 (00:38→20:23)
[2017-10-23] MEDS: LEVOFLOXACIN 750 MG PREMIX INJ 150 ML IV SCH (00:39)
[2017-10-23 07:07] LABS: AUTOMATED NEUTROPHIL # 9.7 TH/MM3 (1.8-7.7); BASOPHIL % 0.1 % (0.0-2.0); HEMATOCRIT 40.2 % (39.0-51.0); HEMOGLOBIN 13.5 GM/DL (13.0-17.0); LYMPH % 6.1 % (9.0-44.0); LYMPHOCYTE # 0.7 TH/MM3 (1.0-4.8); MEAN CELL VOLUME 86.9 FL (80.0-100.0); MEAN CORPUSCULAR HEMOGLOBIN 29.1 PG (27.0-34.0); MEAN CORPUSCULAR HGB CONC 33.5 % (32.0-36.0); MEAN PLATELET VOLUME 8.7 FL (7.0-11.0); MONO % 2.8 % (0.0-8.0); MONOCYTE # 0.3 TH/MM3 (0-0.9); PLATELET COUNT 171 TH/MM3 (150-450); RED BLOOD COUNT 4.63 MIL/MM3 (4.50-5.90); RED CELL DISTRIBUTION WIDTH 15.9 % (11.6-17.2); WHITE BLOOD COUNT 10.7 TH/MM3 (4.0-11.0)
[2017-10-23 07:38] LABS: ALT (GPT) 28 U/L (12-78)
[2017-10-23] MEDS: DOCUSATE SODIUM 50 MG/SENNA 8.6 MG TAB PO SCH ×2 (07:44→20:24)
[2017-10-23] MEDS: POLYETHYLENE GLYCOL 17 GM PKG PO SCH (07:45)
[2017-10-23] MEDS: SODIUM CHLORIDE 0.9% FLUSH 10 ML FLUSH IV FLUSH SCH ×2 (07:45→20:23)
[2017-10-23] MEDS: FAMOTIDINE 20 MG TAB PO SCH ×2 (07:45→20:24)
[2017-10-23] MEDS: BUDESONIDE-FORMOTEROL 160/4.5 MCG INHALER INH SCH ×2 (07:45→20:23)
[2017-10-23] MEDS: TIOTROPIUM BROMIDE 18 MCG INH INH SCH (07:45)
[2017-10-23] MEDS: INSULIN ASPART SUPPLEMENTAL SCALE SQ SCH ×4 (07:45→20:24)
[2017-10-23 07:48] LABS: ALKALINE PHOSPHATASE 53 U/L (45-117); FREE T3 1.97 PG/ML (2.18-3.98); THYROXINE (T4) 6.3 MCG/DL (4.5-12.1); TOTAL BILIRUBIN ADULT 0.3 MG/DL (0.2-1.0); TOTAL PROTEIN 7.1 GM/DL (6.4-8.2)
[2017-10-23 07:50] LABS: AST (GOT) 27 U/L (15-37); BICARBONATE 28.1 MEQ/L (21.0-32.0); BLOOD UREA NITROGEN 23 MG/DL (7-18); CALCIUM 9.2 MG/DL (8.5-10.1); CHLORIDE 103 MEQ/L (98-107); CREATININE 1.22 MG/DL (0.60-1.30); GLOMERULAR FILTRATION RATE 60 ML/MIN (>89); GLUCOSE,RANDOM 151 MG/DL (74-106); SODIUM (NA) 142 MEQ/L (136-145)
[2017-10-23 08:00] VITALS: BP 157/79; PULSE 47; RESP 18; TEMP 97.2; O2SAT 93
[2017-10-23] MEDS ORDERED: LEVOTHYROXINE SODIUM 50 MCG TAB PO ONE (09:15)
--- NOTE | 2017-10-23 10:13 | HHI.PR ---
Subjective Remarks Patient is lying in bed in NAD. On 4L oxygen. Afebrile. Objective Vital Signs Vital Signs Date Time Temp Pulse Resp B/P (MAP) Pulse Ox O2 Delivery O2 Flow Rate FiO2 10/23/17 08:00 97.2 47 18 157/79 (105) 93 10/23/17 00:00 97.3 53 17 121/76 (91) 94 10/22/17 20:15 Nasal Cannula 4.00 10/22/17 20:00 97.2 53 17 115/60 (78) 93 10/22/17 16:00 97.8 55 20 144/70 (94) 92 10/22/17 12:00 97.8 74 20 137/75 (95) 92 I/O 10/22/17 10/22/17 10/22/17 10/23/17 10/23/17 10/23/17 07:00 15:00 23:00 07:00 15:00 23:00 Intake Total 390 ml 1200 ml 630 ml Output Total 500 ml 900 ml 950 ml Balance -110 ml 300 ml -320 ml Intake Oral 240 ml 1200 ml 480 ml IV Total 150 ml 150 ml Output Urine Total 500 ml 900 ml 950 ml # Voids 2 3 3 # Bowel Movements 10 1 Result Diagram: 10/23/17 0625 10/23/17 0625 Other Results Last Impressions Abdomen/Pelvis CT 10/21/17 0000 Signed Impressions: Service Date/Time: Saturday, October 21, 2017 20:45 - CONCLUSION: 1. No acute abnormality seen. 2. Hepatic steatosis. Faisal Dior MD Chest X-Ray 10/19/17 1720 Signed Impressions: Service Date/Time: Thursday, October 19, 2017 17:44 - CONCLUSION: No acute disease. Faisal Tran MD CT Angiography 10/19/17 0000 Signed Impressions: Service Date/Time: Thursday, October 19, 2017 19:58 - CONCLUSION: No evidence of pulmonary embolism Faisal Tran MD Objective Remarks GENERAL: Patient is 62 yo lying in bed in NAD SKIN: Warm and dry. HEAD: Normocephalic. EYES: No scleral icterus. No injection or drainage. NECK: Supple, trachea midline. No JVD or lymphadenopathy. CARDIOVASCULAR: Regular rate and rhythm without murmurs, gallops, or rubs. RESPIRATORY: Breath sounds equal bilaterally. No accessory muscle use. GASTROINTESTINAL: Abdomen soft, non-tender, nondistended. MUSCULOSKELETAL: No cyanosis, or edema. Neuro: Awake and alert A/P Assessment and Plan 1)Resp Insuff 2)COPD exac- on 4L home oxygen 3)Obesity, ? SHADIA 4)Obesity hypoventilation syndrome 5)HTN 6)DM Plan Continue with oxygen keep sats >92% Bronchodilators ( DuoNeb, Symbicort, Spiriva) Decrease Solumederol 40mg Q12 NIPPV PRN for resp distress Sleep study and PFT as outpatient CXR 10/21: No acute disease CTA chest 10/19: No PE Continue with Levaquin monitor for signs of infections ( Fever, WBC) Increase activity GI/DVT prophylaxis per primary team Diane Saleh MD Oct 23, 2017 10:13
[2017-10-23 12:00] VITALS: BP 137/73; PULSE 53; RESP 20; TEMP 97.5; O2SAT 93
--- NOTE | 2017-10-23 12:05 | HHI.PR ---
Subjective Remarks Respiratory status appears stable. Thyroid levels were found to be low today. Plan for colonoscopy on Tuesday. Objective Vital Signs Date Time Temp Pulse Resp B/P (MAP) Pulse Ox O2 Delivery O2 Flow Rate FiO2 10/23/17 08:00 97.2 47 18 157/79 (105) 93 10/23/17 00:00 97.3 53 17 121/76 (91) 94 10/22/17 20:15 Nasal Cannula 4.00 10/22/17 20:00 97.2 53 17 115/60 (78) 93 10/22/17 16:00 97.8 55 20 144/70 (94) 92 I/O 10/22/17 10/22/17 10/22/17 10/23/17 10/23/17 10/23/17 07:00 15:00 23:00 07:00 15:00 23:00 Intake Total 390 ml 1200 ml 630 ml Output Total 500 ml 900 ml 950 ml Balance -110 ml 300 ml -320 ml Intake Oral 240 ml 1200 ml 480 ml IV Total 150 ml 150 ml Output Urine Total 500 ml 900 ml 950 ml # Voids 2 3 3 # Bowel Movements 10 1 Result Diagram: 10/23/1762410/23/17 0625 Objective Remarks GENERAL: NAD, A&Ox3 HEAD: Normocephalic. NECK: Supple, trachea midline. No lymphadenopathy. EYES: No scleral icterus. No injection or drainage. CARDIOVASCULAR: Regular rate and rhythm without murmurs, gallops, or rubs. RESPIRATORY: Breath sounds equal bilaterally. No accessory muscle use. GASTROINTESTINAL: Abdomen soft, non-tender, nondistended. MUSCULOSKELETAL: No cyanosis, or edema. SKIN: Warm and dry. NEURO: No focal neurological deficitis. A/P Problem List: (1) GI bleed ICD Code: K92.2 - Gastrointestinal hemorrhage, unspecified (2) Hypoxia ICD Code: R09.02 - Hypoxemia (3) Obesity ICD Code: E66.9 - Obesity, unspecified Status: Acute (4) Respiratory failure ICD Code: J96.90 - Respiratory failure, unspecified, unspecified whether with hypoxia or hypercapnia Assessment and Plan 62-year-old male admitted secondary to acute respiratory failure and hypoxia with COPD exacerbation related to pneumonia. Thyroid levels are low. Synthroid started. Continue to monitor respiratory status. Plan for colonoscopy tomorrow. Hypothyroidism Synthroid Acute respiratory failure Hypoxia COPD exacerbation Pneumonia Baseline obesity hypoventilation syndrome Continue Levaquin Continue steroids Continue breathing treatments Continue Spiriva and Symbicort GI bleed History of colon cancer Subcutaneous heparin discontinued Follow CBC GI continuous improvement consultant Diabetes mellitus type 2 Follow blood sugars Insulin sliding scale Diabetic diet Dysuria No signs of urinary tract infection Follow clinically Schizophrenia Continue citalopram Continue risperidone Hypertension Continue baseline treatment Follow blood pressures Adjust treatments as needed Hyperlipidemia Continue present treatment Follow as an outpatient DVT prophylaxis Bleeding has occurred with heparin Heparin discontinued SCDs Dheeraj Burnett MD Oct 23, 2017 12:05
--- NOTE | 2017-10-23 13:54 | HHI.GIFU ---
Subjective Remarks Pt with no GI complaints at this time Currently on clear liquids for GI procedure tomorrow Getting ready to take a shower (Angelica Pedraza) Objective Vitals I&O Vital Signs Date Time Temp Pulse Resp B/P (MAP) Pulse Ox O2 Delivery O2 Flow Rate FiO2 10/23/17 08:00 97.2 47 18 157/79 (105) 93 10/23/17 00:00 97.3 53 17 121/76 (91) 94 10/22/17 20:15 Nasal Cannula 4.00 10/22/17 20:00 97.2 53 17 115/60 (78) 93 10/22/17 16:00 97.8 55 20 144/70 (94) 92 I/O 10/22/17 10/22/17 10/22/17 10/23/17 10/23/17 10/23/17 07:00 15:00 23:00 07:00 15:00 23:00 Intake Total 390 ml 1200 ml 630 ml Output Total 500 ml 900 ml 950 ml Balance -110 ml 300 ml -320 ml Intake Oral 240 ml 1200 ml 480 ml IV Total 150 ml 150 ml Output Urine Total 500 ml 900 ml 950 ml # Voids 2 3 3 # Bowel Movements 10 1 Laboratory Laboratory Tests Test 10/23/17 06:25 White Blood Count 10.7 Red Blood Count 4.63 Hemoglobin 13.5 Hematocrit 40.2 Mean Corpuscular Volume 86.9 Mean Corpuscular Hemoglobin 29.1 Mean Corpuscular Hemoglobin Concent 33.5 Red Cell Distribution Width 15.9 Platelet Count 171 Mean Platelet Volume 8.7 Neutrophils (%) (Auto) 91.0 Lymphocytes (%) (Auto) 6.1 Monocytes (%) (Auto) 2.8 Eosinophils (%) (Auto) 0.0 Basophils (%) (Auto) 0.1 Neutrophils # (Auto) 9.7 Lymphocytes # (Auto) 0.7 Monocytes # (Auto) 0.3 Eosinophils # (Auto) 0.0 Basophils # (Auto) 0.0 CBC Comment AUTO DIFF Differential Comment AUTO DIFF CONFIRMED Blood Urea Nitrogen 23 Creatinine 1.22 Random Glucose 151 Total Protein 7.1 Albumin 3.0 Calcium Level 9.2 Alkaline Phosphatase 53 Aspartate Amino Transf (AST/SGOT) 27 Alanine Aminotransferase (ALT/SGPT) 28 Total Bilirubin 0.3 Sodium Level 142 Potassium Level 4.1 Chloride Level 103 Carbon Dioxide Level 28.1 Anion Gap 11 Estimat Glomerular Filtration Rate 60 Thyroxine (T4) 6.3 Free Triiodothyronine (T3) pg/dL 1.97 Thyroid Stimulating Hormone 3rd Gen 0.318 Imaging Last Impressions Abdomen/Pelvis CT 10/21/17 0000 Signed Impressions: Service Date/Time: Saturday, October 21, 2017 20:45 - CONCLUSION: 1. No acute abnormality seen. 2. Hepatic steatosis. Faisal Dior MD Chest X-Ray 10/19/17 1720 Signed Impressions: Service Date/Time: Thursday, October 19, 2017 17:44 - CONCLUSION: No acute disease. Faisal Tran MD CT Angiography 10/19/17 0000 Signed Impressions: Service Date/Time: Thursday, October 19, 2017 19:58 - CONCLUSION: No evidence of pulmonary embolism Faisal Tran MD Physical Exam HEENT: Normocephalic; atraumatic CHEST: Even/unlabored CARDIAC: ABDOMEN: Distended, soft, nontender; bowel sounds active . SKIN: Normal; no rash; no jaundice. COMMUNITY ENGAGEMENT COORDINATOR: No focal deficits; alert and oriented times three. (Angelica Pedraza) Assessment and Plan Plan Assessment: - Rectal bleeding- now resolved History of anal cancer S/P chemoradiation- no surgical intervention EUS rectal (03/2014) --> Rectal exam showed skin tags and perianal erythema. The sphincter tone was diminished. In the rectum, some nodularity was noticed close to the dental line. Normal wall layers. No significant adjacent lymph nodes. Last colonoscopy over [address] abdomen and pelvis W contrast (10/21) --> No acute abnormality seen. Hepatic steatosis. - PNA- On Levaquin, steroids, and breathing treatments - on 4 L o2 via NC (10/23) Pt with no GI complaints at this time. One BM since yesterday, denies blood in stool. Currently on clear liquids for colonoscopy tomorrow. Plan Colonoscopy tomorrow Obtain consent Clear liquids today Magnesium Citrate prep NPO after MN Monitor H/H Transfuse as needed Further recommendations based on findings of above Pt has been seen and examined by myself and Dr. Lundberg and this note is written on his behalf (Angelica Pedraza) Physician Comments Patient seen and examined Agree with above Continue with current supportive care Monitor labs Colonoscopy tomorrow (Juan Lundberg MD) Angelica Pedraza Oct 23, 2017 13:54 Juan Lundberg MD Oct 23, 2017 23:03
[2017-10-23] MEDS ORDERED: PEG (High)/E-LYTE SOLN 4000 ML BTL PO ONE (14:00)
[2017-10-23 16:00] VITALS: BP 154/91; PULSE 55; RESP 19; TEMP 97.4; O2SAT 95
[2017-10-23] MEDS ORDERED: MAGNESIUM CITRATE SOLN 300 ML BTL PO ONE ×2 (16:00→18:00)
[2017-10-23] MEDS: risperiDONE 1 MG TAB PO SCH (20:23)
[2017-10-23] MEDS: BENZTROPINE MESYLATE 1 MG TAB PO SCH (20:24)
[2017-10-23] MEDS: CITALOPRAM HYDROBROMIDE 40 MG TAB PO SCH (20:24)
[2017-10-23] MEDS ORDERED: CHLORHEXIDINE GLUCONATE 2 % 1 PACK (2 CLOTHS) TOPICAL PRN (23:30)
[2017-10-23] MEDS ORDERED: POVIDONE IODINE 5% (ANTISEPSIS KIT) 4 APPLICATIONS EACH NARE PRN (23:30)
[2017-10-23] MEDS ORDERED: LACTATED RINGER'S 1000 ML IV PRN (23:30)
[2017-10-24] VITALS: BP 135/70; PULSE 56; RESP 22; TEMP 97.7; O2SAT 96
[2017-10-24] MEDS: LEVOFLOXACIN 750 MG PREMIX INJ 150 ML IV SCH (00:31)
[2017-10-24] MEDS: LEVOTHYROXINE SODIUM 50 MCG TAB PO SCH (05:28)
[2017-10-24] MEDS: INSULIN ASPART SUPPLEMENTAL SCALE SQ SCH ×4 (07:50→21:00)
[2017-10-24 08:00] VITALS: BP 160/88; PULSE 60; RESP 16; TEMP 97.2; O2SAT 97
[2017-10-24] MEDS: TIOTROPIUM BROMIDE 18 MCG INH INH SCH (08:25)
[2017-10-24] MEDS: BUDESONIDE-FORMOTEROL 160/4.5 MCG INHALER INH SCH ×2 (08:27→21:00)
[2017-10-24] MEDS: SODIUM CHLORIDE 0.9% FLUSH 10 ML FLUSH IV FLUSH SCH ×2 (08:28→21:00)
[2017-10-24] MEDS: methylPREDNISolone SOD SUCC 40 MG/1 ML VIAL IV PUSH SCH ×2 (08:28→21:11)
[2017-10-24] MEDS: POLYETHYLENE GLYCOL 17 GM PKG PO SCH (08:29)
[2017-10-24] MEDS: DOCUSATE SODIUM 50 MG/SENNA 8.6 MG TAB PO SCH ×2 (08:29→21:00)
[2017-10-24] MEDS: FAMOTIDINE 20 MG TAB PO SCH ×2 (08:30→21:10)
[2017-10-24 11:35] VITALS: BP 156/84; PULSE 62; RESP 19; TEMP 97.4; O2SAT 93
[2017-10-24] MEDS ORDERED: PROPOFOL 200 MG/20 ML AMP IV ONE (12:00)
--- NOTE | 2017-10-24 14:53 | HHI.PR ---
Subjective Remarks Follow up with Respiratory failure/GI bleed 10/24/17-patient seen and examined, no significant shortness of breath, denies any CP, dizziness. Denies any GI bleed Objective Vitals Vital Signs Date Time Temp Pulse Resp B/P (MAP) Pulse Ox O2 Delivery O2 Flow Rate FiO2 10/24/17 11:35 97.4 62 19 156/84 (108) 93 10/24/17 11:21 Nasal Cannula 4 10/24/17 08:00 Nasal Cannula 4.00 10/24/17 08:00 97.2 60 16 160/88 (112) 97 10/24/17 05:28 Nasal Cannula 4.00 10/24/17 00:00 97.7 56 22 135/70 (91) 96 10/23/17 21:28 Nasal Cannula 4.00 10/23/17 16:00 97.4 55 19 154/91 (112) 95 I/O 10/23/17 10/23/17 10/23/17 10/24/17 10/24/17 10/24/17 07:00 15:00 23:00 07:00 15:00 23:00 Intake Total 630 ml 960 ml 150 ml Output Total 950 ml 1800 ml 450 ml Balance -320 ml -840 ml -300 ml Intake Oral 480 ml 960 ml IV Total 150 ml 150 ml Output Urine Total 950 ml 1800 ml 450 ml # Voids 3 1 # Bowel Movements 2 Result Diagram: 10/23/17 0625 10/23/17 0625 Imaging Last Impressions Abdomen/Pelvis CT 10/21/17 0000 Signed Impressions: Service Date/Time: Saturday, October 21, 2017 20:45 - CONCLUSION: 1. No acute abnormality seen. 2. Hepatic steatosis. Faisal Dior MD Chest X-Ray 10/19/17 1720 Signed Impressions: Service Date/Time: Thursday, October 19, 2017 17:44 - CONCLUSION: No acute disease. Faisal Tran MD CT Angiography 10/19/17 0000 Signed Impressions: Service Date/Time: Thursday, October 19, 2017 19:58 - CONCLUSION: No evidence of pulmonary embolism Faisal Tran MD Objective Remarks GENERAL: NAD SKIN: Warm and dry. HEAD: Normocephalic. EYES: No scleral icterus. No injection or drainage. NECK: Supple, trachea midline. No JVD or lymphadenopathy. CARDIOVASCULAR: Regular rate and rhythm without murmurs, gallops, or rubs. RESPIRATORY: Breath sounds equal bilaterally. No accessory muscle use. GASTROINTESTINAL: Abdomen soft, non-tender, nondistended. MUSCULOSKELETAL: No cyanosis, or edema. BACK: Nontender without obvious deformity. No CVA tenderness. A/P Problem List: (1) Respiratory failure ICD Code: J96.90 - Respiratory failure, unspecified, unspecified whether with hypoxia or hypercapnia (2) GI bleed ICD Code: K92.2 - Gastrointestinal hemorrhage, unspecified Assessment and Plan 62 years old man with Hypothyroidism Currently Synthroid Acute respiratory failure Hypoxia COPD exacerbation Pneumonia Baseline obesity hypoventilation syndrome Continue Levaquin Continue Solu Medrol 40mg IV Q12H Continue Bronchodilators, Spiriva and Symbicort GI bleed History of colon cancer Subcutaneous heparin discontinued Plan for colonoscopy today October 24, 2017 Diabetes mellitus type 2 Insulin sliding scale Dysuria No signs of urinary tract infection Follow clinically Schizophrenia Continue citalopram Continue risperidone Hypertension Labile blood pressure Start Norvasc 5 mg daily Hyperlipidemia Currently not on any statin DVT prophylaxis Bleeding has occurred with heparin Heparin discontinued Richar Zambrano MD Oct 24, 2017 14:53
[2017-10-24] MEDS ORDERED: MIDAZOLAM HCL 2 MG/2 ML VIAL ONE (15:15)
--- NOTE | 2017-10-24 15:17 | PD.PROCEDR ---
GI Procedure PROCEDURE PERFORMED Colonoscopy with biopsy INDICATION FOR PROCEDURE Rectal bleeding PROCEDURE: The procedure, risks and benefits were discussed with Patient/POA and informed consent was obtained. Anesthesia sedated Patient with Diprivan. Patient was placed in the left lateral decubitus position. Colonoscopy: The Pentax videoscope was introduced through the rectum and advanced to cecum where the ileocecal valve and appendiceal orifice were identified. Retroflexion was performed in the rectum. Colonic prep was good FINDINGS: Colonic withdrawal time greater than 6 minutes. As the scope was slowly withdrawn colonic mucosa was carefully inspected. Patient was noted to have a small polyp in the cecum this was removed using cold biopsy forceps otherwise colonic examination was unremarkable all the way through retroflexion in the rectum did reveal mild internal hemorrhoids otherwise rectal examination unremarkable ESTIMATED BLOOD LOSS: None SPECIMENS REMOVED: Cecal polyp COMPLICATIONS: None IMPRESSION: Colon polyp Internal hemorrhoids PLAN: Await biopsy High-fiber diet Colonoscopy in 5 years No further recommendations from a GI perspective we will sign off Juan Lundberg MD Oct 24, 2017 15:17
[2017-10-24 16:00] VITALS: BP 136/70; PULSE 86; RESP 17; TEMP 98.3; O2SAT 96
[2017-10-24 17:06] LABS: AUTOMATED NEUTROPHIL # 9.1 TH/MM3 (1.8-7.7); HEMATOCRIT 43.6 % (39.0-51.0); HEMOGLOBIN 14.8 GM/DL (13.0-17.0); LYMPH % 6.5 % (9.0-44.0); LYMPHOCYTE # 0.6 TH/MM3 (1.0-4.8); MEAN CELL VOLUME 86.5 FL (80.0-100.0); MEAN CORPUSCULAR HEMOGLOBIN 29.3 PG (27.0-34.0); MEAN CORPUSCULAR HGB CONC 33.9 % (32.0-36.0); MEAN PLATELET VOLUME 8.4 FL (7.0-11.0); MONO % 3.3 % (0.0-8.0); MONOCYTE # 0.3 TH/MM3 (0-0.9); NEUT % 90.2 % (16.0-70.0); PLATELET COUNT 171 TH/MM3 (150-450); RED BLOOD COUNT 5.04 MIL/MM3 (4.50-5.90); RED CELL DISTRIBUTION WIDTH 15.8 % (11.6-17.2); WHITE BLOOD COUNT 10.1 TH/MM3 (4.0-11.0)
[2017-10-24 17:24] LABS: ALBUMIN 3.2 GM/DL (3.4-5.0); ALKALINE PHOSPHATASE 58 U/L (45-117); ALT (GPT) 37 U/L (12-78); AST (GOT) 36 U/L (15-37); BICARBONATE 32.4 MEQ/L (21.0-32.0); CALCIUM 8.4 MG/DL (8.5-10.1); CHLORIDE 103 MEQ/L (98-107); CREATININE 1.17 MG/DL (0.60-1.30); GLOMERULAR FILTRATION RATE 63 ML/MIN (>89); GLUCOSE,RANDOM 128 MG/DL (74-106); SODIUM (NA) 142 MEQ/L (136-145); TOTAL BILIRUBIN ADULT 0.6 MG/DL (0.2-1.0); TOTAL PROTEIN 7.6 GM/DL (6.4-8.2)
[2017-10-24 17:30] LABS: BLOOD UREA NITROGEN 21 MG/DL (7-18)
--- NOTE | 2017-10-24 18:55 | HHI.PR ---
Subjective Remarks IMPRESSION COPD EXACERBATION RESPIRATORY FAILURE MORBID OBESITY ? SHADIA PLAN O2 NEEDED BRONCHODILATOR THERAPY NPSG POST D/C LOOSE WEIGHT Objective Vital Signs Date Time Temp Pulse Resp B/P (MAP) Pulse Ox O2 Delivery O2 Flow Rate FiO2 10/24/17 16:00 98.3 86 17 136/70 (92) 96 10/24/17 15:14 96.9 55 18 145/67 (93) 95 10/24/17 11:35 97.4 62 19 156/84 (108) 93 10/24/17 11:21 Nasal Cannula 4 10/24/17 08:00 Nasal Cannula 4.00 10/24/17 08:00 97.2 60 16 160/88 (112) 97 10/24/17 05:28 Nasal Cannula 4.00 10/24/17 00:00 97.7 56 22 135/70 (91) 96 10/23/17 21:28 Nasal Cannula 4.00 I/O 10/23/17 10/23/17 10/23/17 10/24/17 10/24/17 10/24/17 07:00 15:00 23:00 07:00 15:00 23:00 Intake Total 630 ml 960 ml 150 ml 500 ml Output Total 950 ml 1800 ml 450 ml 625 ml Balance -320 ml -840 ml -300 ml -125 ml Intake Oral 480 ml 960 ml 500 ml IV Total 150 ml 150 ml Output Urine Total 950 ml 1800 ml 450 ml 625 ml # Voids 3 1 # Bowel Movements 2 0 Result Diagram: 10/24/17 1600 10/24/17 1600 Objective Remarks GENERAL: SKIN: Warm and dry. HEAD: Atraumatic. Normocephalic. EYES: Pupils equal and round. No scleral icterus. No injection or drainage. ENT: No nasal bleeding or discharge. Mucous membranes pink and moist. NECK: Trachea midline. No JVD. CARDIOVASCULAR: Regular rate and rhythm. RESPIRATORY: No accessory muscle use. Clear to auscultation. Breath sounds equal bilaterally. GASTROINTESTINAL: Abdomen soft, non-tender, nondistended. Hepatic and splenic margins not palpable. MUSCULOSKELETAL: Extremities without clubbing, cyanosis, or edema. No obvious deformities. NEUROLOGICAL: Awake and alert. No obvious cranial nerve deficits. Motor grossly within normal limits. Five out of 5 muscle strength in the arms and legs. Normal speech. PSYCHIATRIC: Appropriate mood and affect; insight and judgment normal. Assessment and Plan Assessment and Plan COPD RESP FAILURE MORBID OBESITY PLAN O2 NEEDED BRONCHODILATOR THERAPY INCREASE ACTIVITY DEECLINES SLEEP EVALUATION Marylu Valero MD Oct 24, 2017 18:55
[2017-10-24 20:00] VITALS: BP 118/59; PULSE 69; RESP 20; TEMP 97.2; O2SAT 93
[2017-10-24] MEDS: risperiDONE 1 MG TAB PO SCH (21:10)
[2017-10-24] MEDS: BENZTROPINE MESYLATE 1 MG TAB PO SCH (21:10)
[2017-10-24] MEDS: CITALOPRAM HYDROBROMIDE 40 MG TAB PO SCH (21:10)
[2017-10-25] VITALS: BP 117/61; PULSE 59; RESP 20; TEMP 98.1; O2SAT 94
[2017-10-25] MEDS: LEVOFLOXACIN 750 MG PREMIX INJ 150 ML IV SCH (00:50)
[2017-10-25 04:00] VITALS: BP_SYST 125; BP_DIAS 63; BP_DIAS 83; PULSE 56; RESP 20; TEMP 97.8; O2SAT 93
[2017-10-25] MEDS: LEVOTHYROXINE SODIUM 50 MCG TAB PO SCH (04:12)
[2017-10-25 06:49] LABS: BICARBONATE 24.6 MEQ/L (21.0-32.0); CALCIUM 8.4 MG/DL (8.5-10.1); CREATININE 1.15 MG/DL (0.60-1.30)
[2017-10-25 07:21] LABS: AUTOMATED NEUTROPHIL # 8.9 TH/MM3 (1.8-7.7); BASOPHIL % 0.3 % (0.0-2.0); EOSINOPHIL % 0.1 % (0.0-4.0); HEMATOCRIT 41.7 % (39.0-51.0); HEMOGLOBIN 14.1 GM/DL (13.0-17.0); LYMPH % 6.8 % (9.0-44.0); LYMPHOCYTE # 0.7 TH/MM3 (1.0-4.8); MEAN CELL VOLUME 85.9 FL (80.0-100.0); MEAN CORPUSCULAR HEMOGLOBIN 29.1 PG (27.0-34.0); MEAN CORPUSCULAR HGB CONC 33.9 % (32.0-36.0); MEAN PLATELET VOLUME 8.4 FL (7.0-11.0); MONO % 4.1 % (0.0-8.0); MONOCYTE # 0.4 TH/MM3 (0-0.9); NEUT % 88.7 % (16.0-70.0); PLATELET COUNT 155 TH/MM3 (150-450); RED BLOOD COUNT 4.85 MIL/MM3 (4.50-5.90)
[2017-10-25] MEDS: POLYETHYLENE GLYCOL 17 GM PKG PO SCH (08:39)
[2017-10-25] MEDS: INSULIN ASPART SUPPLEMENTAL SCALE SQ SCH (08:40)
[2017-10-25] MEDS: DOCUSATE SODIUM 50 MG/SENNA 8.6 MG TAB PO SCH (08:41)
[2017-10-25] MEDS: FAMOTIDINE 20 MG TAB PO SCH (08:41)
[2017-10-25] MEDS: BUDESONIDE-FORMOTEROL 160/4.5 MCG INHALER INH SCH (08:41)
[2017-10-25] MEDS: TIOTROPIUM BROMIDE 18 MCG INH INH SCH (08:42)
[2017-10-25] MEDS ORDERED: predniSONE 20 MG TAB PO SCH (09:00)
[2017-10-25] MEDS ORDERED: amLODIPine BESYLATE 5 MG TAB PO SCH (09:00)
[2017-10-25] MEDS: SODIUM CHLORIDE 0.9% FLUSH 10 ML FLUSH IV FLUSH SCH (09:00)
--- NOTE | 2017-10-25 09:08 | HHI.PR ---
Subjective Remarks IMPRESSION COPD EXACERBATION RESPIRATORY FAILURE MORBID OBESITY ? SHADIA PLAN O2 NEEDED BRONCHODILATOR THERAPY NPSG POST D/C LOOSE WEIGHT Objective Vital Signs Date Time Temp Pulse Resp B/P (MAP) Pulse Ox O2 Delivery O2 Flow Rate FiO2 10/25/17 04:00 97.8 56 20 125/63 (83) 93 10/25/17 00:00 98.1 59 20 117/61 (79) 94 10/24/17 21:20 Nasal Cannula 4.00 10/24/17 20:00 97.2 69 20 118/59 (78) 93 10/24/17 16:00 98.3 86 17 136/70 (92) 96 10/24/17 15:14 96.9 55 18 145/67 (93) 95 10/24/17 11:35 97.4 62 19 156/84 (108) 93 10/24/17 11:21 Nasal Cannula 4 I/O 10/24/17 10/24/17 10/24/17 10/25/17 10/25/17 10/25/17 07:00 15:00 23:00 07:00 15:00 23:00 Intake Total 150 ml 900 ml 480 ml Output Total 450 ml 625 ml 2500 ml Balance -300 ml 275 ml -2020 ml Intake Oral 500 ml 480 ml IV Total 150 ml Other 400 ml Output Urine Total 450 ml 625 ml 2500 ml # Voids 1 # Bowel Movements 0 1 Result Diagram: 10/25/1760410/25/17604 Objective Remarks GENERAL: SKIN: Warm and dry. HEAD: Atraumatic. Normocephalic. EYES: Pupils equal and round. No scleral icterus. No injection or drainage. ENT: No nasal bleeding or discharge. Mucous membranes pink and moist. NECK: Trachea midline. No JVD. CARDIOVASCULAR: Regular rate and rhythm. RESPIRATORY: No accessory muscle use. Clear to auscultation. Breath sounds equal bilaterally. GASTROINTESTINAL: Abdomen soft, non-tender, nondistended. Hepatic and splenic margins not palpable. MUSCULOSKELETAL: Extremities without clubbing, cyanosis, or edema. No obvious deformities. NEUROLOGICAL: Awake and alert. No obvious cranial nerve deficits. Motor grossly within normal limits. Five out of 5 muscle strength in the arms and legs. Normal speech. PSYCHIATRIC: Appropriate mood and affect; insight and judgment normal. Assessment and Plan Assessment and Plan COPD RESP FAILURE MORBID OBESITY PLAN O2 NEEDED BRONCHODILATOR THERAPY INCREASE ACTIVITY DEECLINES SLEEP EVALUATION Marylu Valero MD Oct 25, 2017 09:08
--- NOTE | 2017-10-25 10:07 | HHI.PR ---
Subjective Remarks Follow up with Respiratory failure/GI bleed 10/24/17-patient seen and examined, no significant shortness of breath, denies any CP, dizziness. Denies any GI bleed October 25, 2017-patient seen and examined, he has been cleared by GI for discharge. Denies any GI bleeding. Respiratory symptoms stable. Objective Vitals Vital Signs Date Time Temp Pulse Resp B/P (MAP) Pulse Ox O2 Delivery O2 Flow Rate FiO2 10/25/17 04:00 97.8 56 20 125/63 (83) 93 10/25/17 00:00 98.1 59 20 117/61 (79) 94 10/24/17 21:20 Nasal Cannula 4.00 10/24/17 20:00 97.2 69 20 118/59 (78) 93 10/24/17 16:00 98.3 86 17 136/70 (92) 96 10/24/17 15:14 96.9 55 18 145/67 (93) 95 10/24/17 11:35 97.4 62 19 156/84 (108) 93 10/24/17 11:21 Nasal Cannula 4 I/O 10/24/17 10/24/17 10/24/17 10/25/17 10/25/17 10/25/17 07:00 15:00 23:00 07:00 15:00 23:00 Intake Total 150 ml 900 ml 480 ml Output Total 450 ml 625 ml 2500 ml Balance -300 ml 275 ml -2020 ml Intake Oral 500 ml 480 ml IV Total 150 ml Other 400 ml Output Urine Total 450 ml 625 ml 2500 ml # Voids 1 # Bowel Movements 0 1 Result Diagram: 10/25/17 0605 10/25/17 0605 Imaging Last Impressions Abdomen/Pelvis CT 10/21/17 0000 Signed Impressions: Service Date/Time: Saturday, October 21, 2017 20:45 - CONCLUSION: 1. No acute abnormality seen. 2. Hepatic steatosis. Faisal Dior MD Chest X-Ray 10/19/17 1720 Signed Impressions: Service Date/Time: Thursday, October 19, 2017 17:44 - CONCLUSION: No acute disease. Faisal Tran MD CT Angiography 10/19/17 0000 Signed Impressions: Service Date/Time: Thursday, October 19, 2017 19:58 - CONCLUSION: No evidence of pulmonary embolism Faisal Tran MD Objective Remarks GENERAL: NAD SKIN: Warm and dry. HEAD: Normocephalic. EYES: No scleral icterus. No injection or drainage. NECK: Supple, trachea midline. No JVD or lymphadenopathy. CARDIOVASCULAR: Regular rate and rhythm without murmurs, gallops, or rubs. RESPIRATORY: Breath sounds equal bilaterally. No accessory muscle use. GASTROINTESTINAL: Abdomen soft, non-tender, nondistended. MUSCULOSKELETAL: No cyanosis, or edema. BACK: Nontender without obvious deformity. No CVA tenderness. A/P Problem List: (1) Respiratory failure ICD Code: J96.90 - Respiratory failure, unspecified, unspecified whether with hypoxia or hypercapnia (2) GI bleed ICD Code: K92.2 - Gastrointestinal hemorrhage, unspecified Assessment and Plan 62 years old man with Hypothyroidism Currently Synthroid Acute respiratory failure-resolved Hypoxia COPD exacerbation Pneumonia Baseline obesity hypoventilation syndrome Continue Levaquin DC Solu Medrol 40mg IV Q12H, switched to p.o. prednisone Continue Bronchodilators, Spiriva and Symbicort Continue oxygen and maintain saturation above 88-92% GI bleed History of colon cancer Subcutaneous heparin discontinued s/p colonoscopy October 24, 2017 with finding of internal hemorrhoids and colon polyps Recommended high-fiber diet by GI Diabetes mellitus type 2 Insulin sliding scale Dysuria No signs of urinary tract infection Follow clinically Schizophrenia Continue citalopram Continue risperidone Hypertension Labile blood pressure Start Norvasc 5 mg daily Hyperlipidemia Currently not on any statin DVT prophylaxis Bleeding has occurred with heparin Heparin discontinued Richar Zambrano MD Oct 25, 2017 10:07
[2017-10-25] MEDS ORDERED: Budeson-Formot 160-4.5 Mcg Inh INH (10:14)
[2017-10-25] MEDS ORDERED: IPRA17I INH (10:14)
[2017-10-25] MEDS ORDERED: SPIRCAP INH (10:14)
[2017-10-25] MEDS ORDERED: AMLO5 PO (10:14)
[2017-10-25] MEDS ORDERED: PRED20 PO (10:14)
[2017-10-25] MEDS ORDERED: LEVO.05 PO (10:14)
[2017-10-25] MEDS ORDERED: VENTAER INH (10:14)
[2017-10-25] MEDS ORDERED: LEVA750T9 PO (10:14)
[2017-10-25] MEDS ORDERED: FIBE625T PO (10:19)
--- NOTE | 2017-10-25 10:23 | HHI.DS ---
Discharge Summary Admission Date Oct 19, 2017 at 19:38 Discharge Date: Oct 25, 2017 Admitting Diagnosis Hypoxia shortness of breath (1) Respiratory failure ICD Code: J96.90 - Respiratory failure, unspecified, unspecified whether with hypoxia or hypercapnia (2) GI bleed ICD Code: K92.2 - Gastrointestinal hemorrhage, unspecified Procedures None Brief History - From Admission 62-year-old male with a past medical history significant for diabetes mellitus, hypertension, hyperlipidemia, COPD on 4 L nasal cannula at home and schizophrenia presents to the emergency department for evaluation of shortness of breath. The patient reports that his shortness of breath started yesterday morning and was accompanied by a cough productive of green sputum. He denies any fever/chills. No chest pain. He denies any abdominal pain. No nausea/ vomiting/diarrhea. Does report burning with urination. He is currently being treated as an outpatient for a urethral stricture. Patient was recently hospitalized for hypoxic respiratory failure and recently diagnosed with COPD. He is followed as an outpatient by Dr. Fisher and has a history of groundglass opacity on CT scan. CBC/BMP: 10/25/17 0605 10/25/17 0605 Significant Findings Laboratory Tests Test 10/23/17 06:25 10/24/17 16:00 10/25/17 06:05 Neutrophils (%) (Auto) 91.0 % (16.0-70.0) 90.2 % (16.0-70.0) 88.7 % (16.0-70.0) Lymphocytes (%) (Auto) 6.1 % (9.0-44.0) 6.5 % (9.0-44.0) 6.8 % (9.0-44.0) Neutrophils # (Auto) 9.7 TH/MM3 (1.8-7.7) 9.1 TH/MM3 (1.8-7.7) 8.9 TH/MM3 (1.8-7.7) Lymphocytes # (Auto) 0.7 TH/MM3 (1.0-4.8) 0.6 TH/MM3 (1.0-4.8) 0.7 TH/MM3 (1.0-4.8) Blood Urea Nitrogen 23 MG/DL (7-18) 21 MG/DL (7-18) 26 MG/DL (7-18) Random Glucose 151 MG/DL (74-106) 128 MG/DL (74-106) 154 MG/DL (74-106) Albumin 3.0 GM/DL (3.4-5.0) 3.2 GM/DL (3.4-5.0) Estimat Glomerular Filtration Rate 60 ML/MIN (>89) 63 ML/MIN (>89) 65 ML/MIN (>89) Free Triiodothyronine (T3) pg/dL 1.97 PG/ML (2.18-3.98) Thyroid Stimulating Hormone 3rd Gen 0.318 uIU/ML (0.358-3.740) Calcium Level 8.4 MG/DL (8.5-10.1) 8.4 MG/DL (8.5-10.1) Carbon Dioxide Level 32.4 MEQ/L (21.0-32.0) PE at Discharge GENERAL: NAD SKIN: Warm and dry. HEAD: Normocephalic. EYES: No scleral icterus. No injection or drainage. NECK: Supple, trachea midline. No JVD or lymphadenopathy. CARDIOVASCULAR: Regular rate and rhythm without murmurs, gallops, or rubs. RESPIRATORY: Breath sounds equal bilaterally. No accessory muscle use. GASTROINTESTINAL: Abdomen soft, non-tender, nondistended. MUSCULOSKELETAL: No cyanosis, or edema. BACK: Nontender without obvious deformity. No CVA tenderness. Hospital Course While in the hospital, patient was treated for: Hypothyroidism Started on Synthroid Acute respiratory failure-resolved Hypoxia COPD exacerbation Pneumonia Baseline obesity hypoventilation syndrome Treated with Steroid,Bronchodilators, Levaquin and oxygen saturation maintained above 88-92% Pulmonary medicine was consulted GI bleed History of colon cancer Gastroenterology was consulted s/p colonoscopy October 24, 2017 with finding of internal hemorrhoids and colon polyps Recommended high-fiber diet by GI Diabetes mellitus type 2 Insulin sliding scale Dysuria No signs of urinary tract infection Follow clinically Schizophrenia Patient was continued on his home medication including citalopram and risperidone Hypertension Labile blood pressure for which he was started on low-dose Norvasc 5 mg daily Hyperlipidemia Currently not on any statin DVT prophylaxis Bleeding has occurred with heparin Heparin discontinued SCDs Pt Condition on Discharge: Good Discharge Disposition: Discharge Home Discharge Time: <= 30 minutes Discharge Instructions DIET: Follow Instructions for: Diabetic Diet Activities you can perform: Regular-No Restrictions Follow up Referrals: PCP Follow-up - 1 Week Pulmonology New Medications: Albuterol 18 GM Inh (Ventolin Hfa 18 GM Inh) 90 Mcg/Act Aer 2 PUFF INH Q4-6H PRN for SHORTNESS OF BREATH, #1 INHALER 3 Refills Calcium Polycarbophil (Fibercon) 625 Mg Tab 1250 MG PO BID PRN for CONSTIPATION, #60 TAB 0 Refills Ipratropium HFA 12.9 GM Inh (Atrovent HFA 12.9 GM Inh) 17 Mcg/Actuation Aer 2 PUFF INH Q6HR PRN for SHORTNESS OF BREATH, #1 INHALER 3 Refills Amlodipine (Norvasc) 5 Mg Tab 5 MG PO DAILY for Blood Pressure Management, #30 TAB Levofloxacin (Levaquin) 750 Mg Tablet 750 MG PO Q24H for Infection, #7 MG Levothyroxine (Synthroid) 50 Mcg Tab 50 MCG PO DAILY@0600 for Thyroid Supplement, #30 TAB 3 Refills Prednisone (Prednisone) 20 Mg Tab 20 MG PO BID for Breathing Treatment, #14 TAB Tiotropium Inh (Spiriva Handihaler) 18 Mcg Cap 18 MCG INH DAILY for Breathing Treatment, #30 CAP 1 capsule = 18 mcg [Budeson-Formot 160-4.5 Mcg Inh] () 60 PUFF AERO 2 PUFF INH Q12HR for Breathing Treatment, #1 3 Refills Continued Medications: Benztropine (Benztropine) 0.5 Mg Tab 1 MG PO HS, #30 TAB 0 Refills Citalopram (Citalopram) 40 Mg Tab 40 MG PO HS for Control Depression, #30 TAB 0 Refills Hydroxyzine Pamoate (Hydroxyzine Pamoate) 50 Mg Cap 50 MG PO EVERY 6-8 HOURS, CAP 0 Refills Metformin (Metformin) 1,000 Mg Tab 1000 MG PO BID for Blood Sugar Management, #60 TAB 0 Refills Montelukast (Montelukast) 10 Mg Tab 10 MG PO HS, #30 TAB 0 Refills Risperidone (Risperidone) 2 Mg Tab 2 MG PO HS, #30 TAB 0 Refills Sitagliptin (Januvia) 50 Mg Tab 50 MG PO DAILY for Blood Sugar Management, #30 TAB 0 Refills Discontinued Medications: Budesonide-Formoterol Inh (Symbicort Inh) 160-4.5 Mcg/Act Aero 2 PUFF INH Q12HR, #1 INHALER 0 Refills Tiotropium Inh (Spiriva Handihaler) 18 Mcg Cap 18 MCG INH DAILY for COPD, #30 CAP 0 Refills 1 capsule = 18 mcg Richar Harmon MD Oct 25, 2017 10:23
[2017-10-26] MEDS ORDERED: LEVOFLOXACIN 750 MG TAB PO SCH
== END 2017-10-25 12:41 | disposition home or self-care (01) | DRG 189 ==
LOC: NEPE 16:49 → NEDA 19:38 → NEDH 23:54 → N07A 10-20 12:57
PROVIDERS: ADMIT Hospitalist; ATTEND Hospitalist
PROC: 0DBH8ZX Excision of Cecum, Via Natural or Artificial Opening Endoscopic, Diagnostic (ICD-10-PCS; principal; 2017-10-24 14:39)
DX: J96.21 Acute and chronic respiratory failure with hypoxia (principal); J18.9 Pneumonia, unspecified organism; J44.0 Chronic obstructive pulmonary disease with (acute) lower respiratory infection; J44.1 Chronic obstructive pulmonary disease with (acute) exacerbation; Z99.81 Dependence on supplemental oxygen; J45.901 Unspecified asthma with (acute) exacerbation; E66.2 Morbid (severe) obesity with alveolar hypoventilation; K76.0 Fatty (change of) liver, not elsewhere classified; E86.0 Dehydration; Z68.42 Body mass index [BMI] 45.0-49.9, adult; K92.1 Melena; D12.0 Benign neoplasm of cecum; E11.9 Type 2 diabetes mellitus without complications; F20.9 Schizophrenia, unspecified; I10 Essential (primary) hypertension; E78.5 Hyperlipidemia, unspecified; E03.9 Hypothyroidism, unspecified; J06.9 Acute upper respiratory infection, unspecified; K59.00 Constipation, unspecified; K59.1 Functional diarrhea; K64.8 Other hemorrhoids; N35.8 Other urethral stricture; Z85.048 Personal history of other malignant neoplasm of rectum, rectosigmoid junction, and anus; Z92.3 Personal history of irradiation; Z79.899 Other long term (current) drug therapy; Z79.84 Long term (current) use of oral hypoglycemic drugs; Z90.49 Acquired absence of other specified parts of digestive tract; Z92.21 Personal history of antineoplastic chemotherapy
CPT/HCPCS: 36600; 71046; 71275; 74177; 80048; 80053; 81001; 82805; 82948; 83735; 83880; 84436; 84443; 84481; 84484; 85025; 88305; 93005; 94640; 94664; 99285; J1644; J1815; J1956; J2250; J2920; J2930; J7512; Q9963; Q9967

== ENCOUNTER → 2017-11-17 | Outpatient (CLI) | DX: R06.89 Other abnormalities of breathing (principal) ==

== ENCOUNTER 2017-12-08 14:43 | Observation (INO) | payer MEDICAID ==
[~2017-12-08] VITALS: Ht 182.9 cm; Wt 150.0 kg
[~2017-12-08 14:43] MED LIST changes: +AMLO5 PO; -AZIT500T2 PO; +Budeson-Formot 160-4.5 Mcg Inh INH; -CLAR10CA3 PO; +FIBE625T PO; +IPRA17I INH; +LEVA750T9 PO; +LEVO.05 PO; +METF1000 PO; -OMEGCAP PO; -PRED10 PO; +PRED20 PO; -SIMV40TA PO; +SITA50 PO; -SYMB160A INH; +VENTAER INH; -guaiFENesin ER PO
[2017-12-08 15:52] VITALS: BP 149/79; PULSE 88; RESP 24; TEMP 97.6
[2017-12-08] MEDS ORDERED: SODIUM CHLORIDE 0.9% FLUSH 10 ML FLUSH IVF PRN ×2 (16:30→18:15)
--- NOTE | 2017-12-08 16:55 | RADRPT ---
EXAM DATE: 12/08/2017 4:45 PM EDT AGE/SEX: 62 years / Male INDICATIONS: Short of breath CLINICAL DATA: This is the patient's initial encounter. Patient reports that signs and symptoms have been present for 2 days and indicates a pain score of 0/10. MEDICAL/SURGICAL HISTORY: Chronic obstructive pulmonary disease. None. COMPARISON: [facility], CHEST PA & LAT, 10/19/2017. . FINDINGS: PA and lateral views of the chest demonstrate the lungs to be symmetrically aerated without evidence of mass, infiltrate or effusion. The cardiomediastinal contours are unremarkable. Osseous structures are intact. CONCLUSION: Negative examination. Electronically signed by: Faisal Tran MD 12/08/2017 4:54 PM EDT
[2017-12-08 17:07] VITALS: O2SAT 94
--- NOTE | 2017-12-08 18:09 | PD ---
HPI Chief Complaint: Respiratory Distress Time Seen by Provider: 18:04 Travel History International Travel<30 days: No Contact w/Intl Traveler<30days: No Traveled to known affect area: No History of Present Illness HPI 62-year-old male came to the emergency room with history of shortness of breath and hypoxia. Patient has history of COPD and requires 4 L of oxygen at home. His says that today his pulse ox was reading 78-80% on the 4 L of oxygen. Patient says he has been short of breath for past 2 weeks. It is progressively worsening. He short of breath walking from his bed to the bathroom. No history of chest pain. No previous history of PE or DVT. He is not on any blood thinners. His pulse ox was 94% on 4 L of oxygen in triage. Patient sees a track equipment operator and has not seen his track equipment operator for this flareup. He did use his inhalers prior to coming to the emergency room he says. He has been coughing and occasionally bringing out greenish sputum. There was a chest x- ray done in triage [facility] Past Medical History Narrative Medical List of his allergies reviewed from the nursing note Depression: Yes Cancer: Yes (Rectal CA) Cardiovascular Problems: Yes High Cholesterol: Yes Chemotherapy: Yes COPD: Yes (CPAP, 4 LT N/C) Diabetes: Yes Patient Takes Glucophage: Yes Diminished Hearing: No Endocrine: Yes Genitourinary: No Hypertension: Yes Immune Disorder: No Musculoskeletal: No Neurologic: No Psychiatric: No Reproductive: No Respiratory: Yes Radiation Therapy: Yes Tetanus Vaccination: < 5 Years Past Surgical History Abdominal Surgery: Yes (galbladder removed) Cholecystectomy: Yes Other Surgery: Yes Social History Alcohol Use: No Tobacco Use: No (Never used tobacco) Substance Use: No Allergies-Medications (Allergen,Severity, Reaction): Coded Allergies: No Known Allergies (Verified Allergy, Unknown, 12/08/17) Comments List of his allergies reviewed from the nursing note Reported Meds & Prescriptions Reported Meds & Active Scripts Active Ventolin Hfa 18 GM Inh (Albuterol Sulfate) 90 Mcg/Act Aer 2 Puff INH Q4-6H PRN Atrovent HFA 12.9 GM Inh (Ipratropium [place]) 17 Mcg/Actuation Aer 2 Puff INH Q6HR PRN Synthroid (Levothyroxine Sodium) 50 Mcg Tab 50 Mcg PO DAILY@0600 [Budeson-Formot 160-4.5 Mcg Inh] 60 PUFF Aero 2 Puff INH Q12HR Spiriva Handihaler (Tiotropium Inh) 18 Mcg Cap 18 Mcg INH DAILY 1 capsule = 18 mcg Reported Albuterol Neb (Albuterol Sulfate) 2.5 Mg/3 Ml Neb 2.5 Mg NEB Q4HR PRN Januvia (Sitagliptin Phosphate) 50 Mg Tab 50 Mg PO DAILY Metformin (Metformin HCl) 1,000 Mg Tab 1,000 Mg PO BID Montelukast (Montelukast Sodium) 10 Mg Tab 10 Mg PO HS Risperidone 2 Mg Tab 2 Mg PO HS Benztropine (Benztropine Mesylate) 0.5 Mg Tab 1 Mg PO HS Citalopram (Citalopram Hydrobromide) 40 Mg Tab 40 Mg PO HS Hydroxyzine Pamoate 50 Mg Cap 50 Mg PO EVERY 6-8 HOURS Narrative Medication List of his home medications reviewed from the nursing note Review of Systems Except as stated in HPI: all other systems reviewed are Neg Respiratory: Positive: Cough, Shortness of Breath Physical Exam Narrative GENERAL: Awake, alert, morbidly obese, moderate distress SKIN: Focused skin assessment warm/dry. HEAD: Atraumatic. Normocephalic. EYES: Pupils equal and round. No scleral icterus. No injection or drainage. ENT: No nasal bleeding or discharge. Mucous membranes pink and moist. NECK: Trachea midline. No JVD. CARDIOVASCULAR: Regular rate and rhythm. No murmur appreciated. RESPIRATORY: Tachypnea, decreased air entry bilaterally with an expiratory wheeze GASTROINTESTINAL: Abdomen soft, non-tender, nondistended. Hepatic and splenic margins not palpable. MUSCULOSKELETAL: No obvious deformities. No clubbing. No cyanosis. No edema. NEUROLOGICAL: Awake and alert. No obvious cranial nerve deficits. Motor grossly within normal limits. Normal speech. PSYCHIATRIC: Appropriate mood and affect; insight and judgment normal. Data Data Last Documented VS Orders Orders Complete Blood Count With Diff (12/08/17 16:20) Comprehensive Metabolic Panel (12/08/17 16:20) Iv Access Insert/Monitor (12/08/17 16:20) Ecg Monitoring (12/08/17 16:20) Oximetry (12/08/17 16:20) Oxygen Administration (12/08/17 16:20) Chest, Pa & Lat (12/08/17 16:20) Electrocardiogram (12/08/17 ) B-Type Natriuretic Peptide (12/08/17 18:09) Vascular Access Team Consult/P PRN (12/08/17 18:14) Vascular Poc Ultrasound (12/08/17 ) Sodium Chloride 0.9% Flush (Ns Flush) (12/08/17 18:15) Methylprednisolone So Succ Inj (Solumedr (12/08/17 18:15) Albuterol-Ipratropium Neb (Duoneb Neb) (12/08/17 18:15) Troponin I (12/08/17 18:40) Ventilation & Perfusion Scan (12/08/17 ) Admit Order (Ed Use Only) (12/08/17 21:22) Labs Laboratory Tests Test 12/08/17 18:40 White Blood Count 6.6 TH/MM3 Red Blood Count 4.42 MIL/MM3 Hemoglobin 13.0 GM/DL Hematocrit 39.5 % Mean Corpuscular Volume 89.4 FL Mean Corpuscular Hemoglobin 29.3 PG Mean Corpuscular Hemoglobin Concent 32.8 % Red Cell Distribution Width 14.3 % Platelet Count 195 TH/MM3 Mean Platelet Volume 8.0 FL Neutrophils (%) (Auto) 67.2 % Lymphocytes (%) (Auto) 10.1 % Monocytes (%) (Auto) 9.5 % Eosinophils (%) (Auto) 12.2 % Basophils (%) (Auto) 1.0 % Neutrophils # (Auto) 4.5 TH/MM3 Lymphocytes # (Auto) 0.7 TH/MM3 Monocytes # (Auto) 0.6 TH/MM3 Eosinophils # (Auto) 0.8 TH/MM3 Basophils # (Auto) 0.1 TH/MM3 CBC Comment DIFF FINAL Differential Comment Blood Urea Nitrogen 10 MG/DL Creatinine 1.11 MG/DL Random Glucose 102 MG/DL Total Protein 7.7 GM/DL Albumin 3.2 GM/DL Calcium Level 9.2 MG/DL Alkaline Phosphatase 68 U/L Aspartate Amino Transf (AST/SGOT) 30 U/L Alanine Aminotransferase (ALT/SGPT) 30 U/L Total Bilirubin 0.4 MG/DL Sodium Level 141 MEQ/L Potassium Level 3.4 MEQ/L Chloride Level 104 MEQ/L Carbon Dioxide Level 26.9 MEQ/L Anion Gap 10 MEQ/L Estimat Glomerular Filtration Rate 67 ML/MIN Troponin I LESS THAN 0.02 NG/ML B-Type Natriuretic Peptide 5 PG/ML MDM Medical Decision Making Medical Screen Exam Complete: Yes Emergency Medical Condition: Yes Medical Record Reviewed: Yes Interpretation(s) Twelve-lead EKG was reviewed by me. Normal sinus rhythm, normal axis, nonspecific ST-T wave changes. Heart rate of 95 bpm. Differential Diagnosis COPD exacerbation, pneumonia, PE, congestive heart failure Narrative Course 9:03 PM blood test results are back and within acceptable limits. Chest x-ray is negative. Given his body habitus and history of cancer my suspicion was moderate for PE. I have ordered a CT pulmonary angiogram. However given patient's poor IV access this has not been done yet. Procedures EKG Prior to Arrival: No Diagnosis Primary Impression: Respiratory failure Qualified Codes: J96.01 - Acute respiratory failure with hypoxia Additional Impression: Acute exacerbation of chronic obstructive pulmonary disease (COPD) Admitting Information Admitting Physician Requests: Observation Scripts Prednisone (Prednisone) 10 Mg Tab 10 MG PO DAILY for COPD, #21 TAB 0 Refills Take 40mg daily for 3 days; 20mg daily for 3 days; 10mg daily for 3 days, then stop. Prov: Edmundo Griffith MD 12/12/17 [guaiFENesin ER] 600 MG TABCR No Conflict Check 1200 MG PO BID for COPD exacerbation, #10 TAB Prov: Dariela Medina 12/11/17 Levofloxacin (Levaquin) 750 Mg Tablet 750 MG PO DAILY for COPD exacerbation for 2 Days, #2 TAB Prov: Dariela Medina 12/11/17 Bedside Commode (Bedside Commode) 1 Mis Mis EA .XX DIRECTED, #1 Prov: Dariela Medina 12/09/17 Fuad Blake MD Dec 08, 2017 18:09
[2017-12-08] MEDS ORDERED: methylPREDNISolone SOD SUCC 125 MG/2 ML VIAL IV PUSH ONE (18:15)
[2017-12-08 18:44] VITALS: BP 149/74; PULSE 87; RESP 20; O2SAT 96
[2017-12-08] MEDS ORDERED: ALBU0.08 NEB (18:52)
[2017-12-08] MEDS: RESP: ALBUTEROL 2.5 MG/IPRATROPIUM 0.5 MG NEB (SCH) INH (18:53)
[2017-12-08 18:56] VITALS: O2SAT 94
[2017-12-08 19:13] LABS: AUTOMATED NEUTROPHIL # 4.5 TH/MM3 (1.8-7.7); BASOPHIL # 0.1 TH/MM3 (0-0.2); EOSINOPHIL # 0.8 TH/MM3 (0-0.4); EOSINOPHIL % 12.2 % (0.0-4.0); HEMATOCRIT 39.5 % (39.0-51.0); LYMPH % 10.1 % (9.0-44.0); LYMPHOCYTE # 0.7 TH/MM3 (1.0-4.8); MEAN CELL VOLUME 89.4 FL (80.0-100.0); MEAN CORPUSCULAR HEMOGLOBIN 29.3 PG (27.0-34.0); MEAN CORPUSCULAR HGB CONC 32.8 % (32.0-36.0); MONO % 9.5 % (0.0-8.0); MONOCYTE # 0.6 TH/MM3 (0-0.9); NEUT % 67.2 % (16.0-70.0); PLATELET COUNT 195 TH/MM3 (150-450); RED BLOOD COUNT 4.42 MIL/MM3 (4.50-5.90); RED CELL DISTRIBUTION WIDTH 14.3 % (11.6-17.2); WHITE BLOOD COUNT 6.6 TH/MM3 (4.0-11.0)
[2017-12-08 19:33] LABS: ALBUMIN 3.2 GM/DL (3.4-5.0); ALT (GPT) 30 U/L (12-78); AST (GOT) 30 U/L (15-37); BICARBONATE 26.9 MEQ/L (21.0-32.0); BLOOD UREA NITROGEN 10 MG/DL (7-18); CALCIUM 9.2 MG/DL (8.5-10.1); CHLORIDE 104 MEQ/L (98-107); CREATININE 1.11 MG/DL (0.60-1.30); GLOMERULAR FILTRATION RATE 67 ML/MIN (>89); GLUCOSE,RANDOM 102 MG/DL (74-106); SODIUM (NA) 141 MEQ/L (136-145)
[2017-12-08 19:37] LABS: ALKALINE PHOSPHATASE 68 U/L (45-117); TOTAL BILIRUBIN ADULT 0.4 MG/DL (0.2-1.0); TOTAL PROTEIN 7.7 GM/DL (6.4-8.2); TROPONIN I LESS THAN 0.02 NG/ML (0.02-0.05)
[2017-12-08] MEDS ORDERED: SODIUM CHLORIDE 0.9% FLUSH 10 ML FLUSH IV FLUSH PRN (22:15)
[2017-12-08] MEDS ORDERED: GLUCAGON 1 MG/ML VIAL OTHER PRN (22:15)
[2017-12-08] MEDS ORDERED: NALOXONE HCL 0.4 MG/ML AMP IV PUSH PRN (22:15)
[2017-12-08] MEDS ORDERED: DEXTROSE 50% IN WATER 50 ML VIAL(D50) IV PUSH PRN (22:15)
[2017-12-08] MEDS ORDERED: ACETAMINOPHEN 325 MG TAB PO PRN (22:15)
[2017-12-08] MEDS ORDERED: RESP: ALBUTEROL 2.5 MG/IPRATROPIUM 0.5 MG NEB (PRN) NEB (22:15)
[2017-12-08] MEDS: CITALOPRAM HYDROBROMIDE 40 MG TAB PO SCH (22:38)
[2017-12-08] MEDS: risperiDONE 1 MG TAB PO SCH (22:38)
[2017-12-08] MEDS: HEPARIN SODIUM - SQ 10,000 UNITS/ML VIAL SQ SCH (22:38)
[2017-12-08] MEDS: BENZTROPINE MESYLATE 1 MG TAB PO SCH (22:38)
[2017-12-08] MEDS: MONTELUKAST SODIUM 10 MG TAB PO SCH (22:38)
--- NOTE | 2017-12-08 23:33 | RADRPT ---
EXAM DATE: 12/08/2017 11:22 PM EDT AGE/SEX: 62 years / Male INDICATIONS: dyspnea and hypoxia CLINICAL DATA: This is the patient's initial encounter. Patient reports that signs and symptoms have been present for 1 day and indicates a pain score of 0/10. MEDICAL/SURGICAL HISTORY: Chronic obstructive pulmonary disease. Carcinoma, rectal. Hypertens ion. Cholecystectomy. COMPARISON: [facility], CHEST PA & LAT, 12/08/2017. . DOSE: 0.3 mCi Tc99m DTPA aerosol 8.5 mCi Tc99m MAA IV TECHNIQUE: Following five minutes of tidal breathing of DTPA aerosol, planar images of the lungs wer e performed in eight projections. The patient was then injected with MAA, and eight-view perfusion s can was performed. FINDINGS: There is a homogeneous pattern of aerosol delivery to the periphery of both lungs. No focal ventilat ory defects are seen. The perfusion lung scan demonstrates a homogenous pattern of uptake in both lungs. No segmental or s ubsegmental defects are seen. CONCLUSION: 1. Negative for pulmonary embolus. Electronically signed by: Gulshan Gandara MD 12/08/2017 11:32 PM EDT
[2017-12-08 23:35] VITALS: BP 125/60; PULSE 106; RESP 18; TEMP 97.9; O2SAT 95
[2017-12-09] VITALS (13 sets, daily range): BP systolic 101–160; BP diastolic 55–80; PULSE 68–99; RESP 18–20; TEMP 98.1–98.9; O2SAT 94–100
--- NOTE | 2017-12-09 00:25 | HHI.HP ---
HPI Service [facility] Hospitalists Primary Care Physician Alok Ball D.O. Admission Diagnosis Shortness of breath, COPD exacerbation Diagnoses: Travel History International Travel<30 Days: No Contact w/Intl Traveler <30 Da: No Traveled to Known Affected Are: No History of Present Illness 62-year-old male with a past medical history of COPD (on 4 L nasal cannula at home), hypertension, hyperlipidemia, diabetes mellitus and a history of rectal cancer presents the emergency department for the evaluation of shortness of breath and hypoxia. The patient was taking his pulse ox at home and noted that his oxygen saturation was in the 70s and 80s. He was wearing his home oxygen with a full tank at the time. He endorses associated shortness of breath that is worse with exertion. He denies any chest pain. No fevers/chills. No abdominal pain. No nausea/vomiting/diarrhea. No lateralizing signs/symptoms. Review of Systems Except as stated in HPI: all other systems reviewed are Neg Past Family Social History Past Medical History COPD (on 4 L nasal cannula at home), hypertension, hyperlipidemia, diabetes mellitus and a history of rectal cancer Past Surgical History Cholecystectomy Reported Medications Reported Meds & Active Scripts Active Ventolin Hfa 18 GM Inh (Albuterol Sulfate) 90 Mcg/Act Aer 2 Puff INH Q4-6H PRN Atrovent HFA 12.9 GM Inh (Ipratropium [place]) 17 Mcg/Actuation Aer 2 Puff INH Q6HR PRN Synthroid (Levothyroxine Sodium) 50 Mcg Tab 50 Mcg PO DAILY@0600 [Budeson-Formot 160-4.5 Mcg Inh] 60 PUFF Aero 2 Puff INH Q12HR Spiriva Handihaler (Tiotropium Inh) 18 Mcg Cap 18 Mcg INH DAILY 1 capsule = 18 mcg Reported Albuterol Neb (Albuterol Sulfate) 2.5 Mg/3 Ml Neb 2.5 Mg NEB Q4HR PRN Januvia (Sitagliptin Phosphate) 50 Mg Tab 50 Mg PO DAILY Metformin (Metformin HCl) 1,000 Mg Tab 1,000 Mg PO BID Montelukast (Montelukast Sodium) 10 Mg Tab 10 Mg PO HS Risperidone 2 Mg Tab 2 Mg PO HS Benztropine (Benztropine Mesylate) 0.5 Mg Tab 1 Mg PO HS Citalopram (Citalopram Hydrobromide) 40 Mg Tab 40 Mg PO HS Hydroxyzine Pamoate 50 Mg Cap 50 Mg PO EVERY 6-8 HOURS Allergies: Coded Allergies: No Known Allergies (Verified Allergy, Unknown, 12/08/17) Family History Patient does not know Social History Negative for alcohol, tobacco and illicit drugs Physical Exam Vital Signs Vital Signs Date Time Temp Pulse Resp B/P (MAP) Pulse Ox O2 Delivery O2 Flow Rate FiO2 12/08/17 23:35 97.9 106 18 125/60 (81) 95 12/08/17 22:43 12/08/17 18:56 94 Nasal Cannula 4.00 12/08/17 18:44 87 20 149/74 (99) 96 Nasal Cannula 4.00 12/08/17 17:07 94 Nasal Cannula 4.00 12/08/17 17:07 94 Nasal Cannula 4.00 12/08/17 15:52 97.6 88 24 149/79 (102) Physical Exam GENERAL: Morbidly obese, male sitting up in bed SKIN: No rashes, ecchymoses or lesions. Cool and dry. HEAD: Atraumatic. Normocephalic. No temporal or scalp tenderness. EYES: Pupils equal round and reactive. Extraocular motions intact. No scleral icterus. No injection or drainage. ENT: Nose without bleeding, purulent drainage or septal hematoma. Throat without erythema, tonsillar hypertrophy or exudate. Uvula midline. Airway patent. NECK: Trachea midline. No JVD or lymphadenopathy. Supple, nontender, no meningeal signs. CARDIOVASCULAR: Regular rate and rhythm without murmurs, gallops, or rubs. RESPIRATORY: Bilateral wheezes. Poor air movement. Use of accessory muscles. GASTROINTESTINAL: Abdomen soft, non-tender, nondistended. No hepato-splenomegaly , or palpable masses. No guarding. MUSCULOSKELETAL: Extremities without clubbing, cyanosis, or edema. No joint tenderness, effusion, or edema noted. No calf tenderness. NEUROLOGICAL: Awake and alert. Cranial nerves II through XII intact. Motor and sensory grossly within normal limits. Normal speech. Laboratory Laboratory Tests Test 12/08/17 18:40 White Blood Count 6.6 Red Blood Count 4.42 Hemoglobin 13.0 Hematocrit 39.5 Mean Corpuscular Volume 89.4 Mean Corpuscular Hemoglobin 29.3 Mean Corpuscular Hemoglobin Concent 32.8 Red Cell Distribution Width 14.3 Platelet Count 195 Mean Platelet Volume 8.0 Neutrophils (%) (Auto) 67.2 Lymphocytes (%) (Auto) 10.1 Monocytes (%) (Auto) 9.5 Eosinophils (%) (Auto) 12.2 Basophils (%) (Auto) 1.0 Neutrophils # (Auto) 4.5 Lymphocytes # (Auto) 0.7 Monocytes # (Auto) 0.6 Eosinophils # (Auto) 0.8 Basophils # (Auto) 0.1 CBC Comment DIFF FINAL Differential Comment Blood Urea Nitrogen 10 Creatinine 1.11 Random Glucose 102 Total Protein 7.7 Albumin 3.2 Calcium Level 9.2 Alkaline Phosphatase 68 Aspartate Amino Transf (AST/SGOT) 30 Alanine Aminotransferase (ALT/SGPT) 30 Total Bilirubin 0.4 Sodium Level 141 Potassium Level 3.4 Chloride Level 104 Carbon Dioxide Level 26.9 Anion Gap 10 Estimat Glomerular Filtration Rate 67 Troponin I LESS THAN 0.02 B-Type Natriuretic Peptide 5 Result Diagram: 12/08/17183912/08/171839 Caprini VTE Risk Assessment Caprini VTE Risk Assessment: Mod/High Risk (score >= 2) Caprini Risk Assessment Model Point Value = 1 Point Value = 2 Point Value = 3 Point Value = 5 Age 41-60 Minor surgery BMI > 25 kg/m2 Swollen legs Varicose veins or History of unexplained or recurrent spontaneous Oral contraceptives or hormone replacement Sepsis (< 1 month) Serious lung disease, including pneumonia (< 1 month) Abnormal pulmonary function Acute myocardial infarction Congestive heart failure (< 1 month) History of inflammatory bowel disease Medical patient at bed rest Age 61-74 Arthroscopic surgery Major open surgery (> 45 min) Laparoscopic surgery (> 45 min) Malignancy Confined to bed (> 72 hours) Immobilizing plaster cast Central venous access Age >= 75 History of VTE Family history of VTE Factor V Leiden Prothrombin [id number] Lupus anticoagulant Anticardiolipin antibodies Elevated serum homocysteine Heparin-induced thrombocytopenia Other congenital or acquired thrombophilia Stroke (< 1 month) Elective arthroplasty Hip, pelvis, or leg fracture Acute spinal cord injury (< 1 month) Prophylaxis Regimen Total Risk Factor Score Risk Level Prophylaxis Regimen 0-1 Low Early ambulation 2 Moderate Order ONE of the following: *Sequential Compression Device (SCD) *Heparin 5000 units SQ BID 3-4 Higher Order ONE of the following medications: *Heparin 5000 units SQ TID *Enoxaparin/Lovenox 40 mg SQ daily (WT < 150 kg, CrCl > 30 mL/min) *Enoxaparin/Lovenox 30 mg SQ daily (WT < 150 kg, CrCl > 10-29 mL/min) *Enoxaparin/Lovenox 30 mg SQ BID (WT < 150 kg, CrCl > 30 mL/min) AND/OR *Sequential Compression Device (SCD) 5 or more Highest Order ONE of the following medications: *Heparin 5000 units SQ TID (Preferred with Epidurals) *Enoxaparin/Lovenox 40 mg SQ daily (WT < 150 kg, CrCl > 30 mL/min) *Enoxaparin/Lovenox 30 mg SQ daily (WT < 150 kg, CrCl > 10-29 mL/min) *Enoxaparin/Lovenox 30 mg SQ BID (WT < 150 kg, CrCl > 30 mL/min) AND *Sequential Compression Device (SCD) Assessment and Plan Assessment and Plan Assessment/plan: 1. COPD exacerbation/shortness of breath Chest x-ray negative for acute process, personally reviewed IV steroids Duo nebs Supplemental oxygen VQ scan negative for PE Continue home Spiriva, Symbicort 2. Diabetes mellitus Sliding-scale insulin Monitor blood glucose Holding home metformin and Januvia 3. Hypertension/hyperlipidemia/hypothyroidism/depression Continue home medications FEN Heart healthy diet Electrolytes: Status post p.o. repletion of potassium, monitor BMP Heparin Traci Neely MD Dec 09, 2017 00:25
[2017-12-09] MEDS ORDERED: POTASSIUM CHLORIDE 20 MEQ CONTROLLED RELEASE TAB PO ONE (00:30)
[2017-12-09] MEDS: RESP: ALBUTEROL 2.5 MG/IPRATROPIUM 0.5 MG NEB (SCH) NEB ×4 (02:57→20:06)
[2017-12-09] MEDS: methylPREDNISolone SOD SUCC 40 MG/1 ML VIAL IV PUSH SCH ×4 (06:12→18:28)
[2017-12-09] MEDS: LEVOTHYROXINE SODIUM 50 MCG TAB PO SCH (06:12)
[2017-12-09] MEDS: HEPARIN SODIUM - SQ 10,000 UNITS/ML VIAL SQ SCH ×2 (06:13→13:16)
[2017-12-09] MEDS: INSULIN ASPART SUPPLEMENTAL SCALE SQ SCH ×4 (08:00→21:38)
[2017-12-09] MEDS ORDERED: metFORMIN HCL 500 MG TAB PO SCH (09:00)
[2017-12-09 09:09] LABS: AUTOMATED NEUTROPHIL # 5.5 TH/MM3 (1.8-7.7); BASOPHIL % 0.5 % (0.0-2.0); EOSINOPHIL % 0.7 % (0.0-4.0); HEMATOCRIT 37.8 % (39.0-51.0); HEMOGLOBIN 12.9 GM/DL (13.0-17.0); LYMPH % 10.7 % (9.0-44.0); LYMPHOCYTE # 0.7 TH/MM3 (1.0-4.8); MEAN CELL VOLUME 89.3 FL (80.0-100.0); MEAN CORPUSCULAR HEMOGLOBIN 30.5 PG (27.0-34.0); MEAN CORPUSCULAR HGB CONC 34.1 % (32.0-36.0); MEAN PLATELET VOLUME 8.3 FL (7.0-11.0); MONO % 0.9 % (0.0-8.0); MONOCYTE # 0.1 TH/MM3 (0-0.9); NEUT % 87.2 % (16.0-70.0); PLATELET COUNT 172 TH/MM3 (150-450); RED BLOOD COUNT 4.24 MIL/MM3 (4.50-5.90); RED CELL DISTRIBUTION WIDTH 14.5 % (11.6-17.2); WHITE BLOOD COUNT 6.3 TH/MM3 (4.0-11.0)
[2017-12-09 09:30] LABS: BICARBONATE 25.8 MEQ/L (21.0-32.0); CALCIUM 9.1 MG/DL (8.5-10.1); CREATININE 1.09 MG/DL (0.60-1.30)
[2017-12-09] MEDS: BUDESONIDE-FORMOTEROL 160/4.5 MCG INHALER INH SCH ×2 (11:56→21:37)
[2017-12-09] MEDS: SODIUM CHLORIDE 0.9% FLUSH 10 ML FLUSH IV FLUSH SCH ×2 (12:03→21:37)
[2017-12-09] MEDS: TIOTROPIUM BROMIDE 18 MCG INH INH SCH (13:17)
[2017-12-09] MEDS: LEVOFLOXACIN 750 MG PREMIX INJ 150 ML IV SCH (13:17)
[2017-12-09] MEDS ORDERED: BEDSIDE COMMODE1 MI1 (15:07)
--- NOTE | 2017-12-09 15:30 | HHI.PR ---
Subjective Remarks Follow-up on patient with COPD exacerbation. Patient seen and examined. Patient denies any improvement in his breathing. He is oxygen dependent at home on 4L. He is currently satting 94% on 4L. He endorses cough with greenish sputum production. He denies any recent illness or ill contacts. He denies any fever or chills. He denies any complaints of chest pain. Patient follows with Dr. Valero as an outpatient and was last seen in his clinic a month ago. He denies any change in his medications. He denies any nausea, vomiting or abdominal pain. He complains of dysuria. He denies any diarrhea or constipation. Objective Vitals Vital Signs Date Time Temp Pulse Resp B/P (MAP) Pulse Ox O2 Delivery O2 Flow Rate FiO2 12/09/17 12:18 98.9 80 20 138/80 (99) 94 12/09/17 08:39 98.2 80 20 132/80 (97) 98 12/09/17 08:16 97 Nasal Cannula 4.00 12/09/17 04:26 81 18 108/63 (78) 94 12/09/17 04:02 86 12/09/17 00:35 100 40 12/09/17 00:04 99 12/08/17 23:35 97.9 106 18 125/60 (81) 95 12/08/17 22:43 12/08/17 18:56 94 Nasal Cannula 4.00 12/08/17 18:44 87 20 149/74 (99) 96 Nasal Cannula 4.00 12/08/17 17:07 94 Nasal Cannula 4.00 12/08/17 17:07 94 Nasal Cannula 4.00 12/08/17 15:52 97.6 88 24 149/79 (102) Result Diagram: 12/09/17 0732 12/09/17 0732 Imaging Last Impressions Chest X-Ray 12/08/17 1620 Signed Impressions: CONCLUSION: Negative examination. Lung Scan-V Nuclear Medicine 12/08/17 0000 Signed Impressions: CONCLUSION: 1. Negative for pulmonary embolus. Objective Remarks GENERAL: Well-developed well-nourished morbidly obese, male patient, in no acute distress. Awake and alert. Sitting up in bedside chair. is at the bedside. SKIN: No rashes, ecchymoses or lesions. Cool and dry. HEAD: Atraumatic. Normocephalic. EYES: Pupils equal round and reactive. Extraocular motions intact. No scleral icterus. No injection or drainage. ENT: Nose without bleeding or purulent drainage. Airway patent. MMM. NECK: Trachea midline. CARDIOVASCULAR: Regular rate and rhythm without murmurs, gallops, or rubs. RESPIRATORY: No accessory muscle use. Poor air movement with bilateral expiratory wheezing noted in all lung benito. GASTROINTESTINAL: Abdomen soft, non-tender, nondistended. No guarding. MUSCULOSKELETAL: Extremities without clubbing, cyanosis, or edema. No calf tenderness. NEUROLOGICAL: Awake and alert. Cranial nerves II through XII grossly intact. Motor and sensory grossly within normal limits. Nonfocal. Normal speech. Procedures None A/P Assessment and Plan 62-year-old male with a past medical history of COPD (on 4 L nasal cannula at home), hypertension, hyperlipidemia, diabetes mellitus and a history of rectal cancer presents the emergency department for the evaluation of shortness of breath and hypoxia. Acute on chronic hypoxic respiratory failure O2 dependent, on 4 L at home Obesity hypoventilation syndrome COPD exacerbation Chest x-ray negative for acute process -Consult Dr. Valero as patient follows with him as outpatient -Continue on IV steroids and scheduled duo nebs -Continue on supplemental oxygen to maintain O2 sats greater than 92% -Add IV Levaquin secondary to complaints of cough with greenish sputum production -Continue on home medications Symbicort, Spiriva and Singulair -Continue to monitor respiratory status DM -Continue to hold metformin and Januvia -Continue with Accu-Cheks and insulin sliding scale -change to diabetic diet Dysuria -obtain UA specimen Hypokalemia -Resolved status post p.o. repletion Hypothyroidism -Continue on home dose of levothyroxine 50 mcg daily Schizophrenia -Continue on home medications History of GI bleed 10/19 Per history, bleeding has occurred with heparin s/p colonoscopy October 24, 2017 with finding of internal hemorrhoids and colon polyps Recommended high-fiber diet by GI -Discontinue heparin DVT prophylaxis -Heparin sq discontinued. Bilateral SCDs. Dariela Medina Dec 09, 2017 15:30
--- NOTE | 2017-12-09 16:05 | EKG ---
Date Performed: 12/08/2017 Time Performed: 18:59:03 PTAGE: 62 years EKG: Sinus rhythm LOW QRS VOLTAGE IN PRECORDIAL LEADS BORDERLINE ECG Since the PREVIOUS TRACING , no significant change noted PREVIOUS TRACIN10/19/2017 17.16 DOCTOR: Byron Sen Interpretating Date/Time 12/09/2017 16:01:11
[2017-12-09 18:32] LABS: BILIRUBIN, URINE NEG (NEG); BLOOD, URINE NEG (NEG); GLUCOSE,URINE TRACE mg/dL (NEG); KETONE, URINE TRACE mg/dL (NEG); MUCUS URINE FEW /lpf (OCC); NITRITE,URINE NEG (NEG); SQUAMOUS EPITHELIAL CELL URINE 1 /hpf (0-5); URINE COLOR YELLOW (YELLW/STRAW); URINE LEUKOCYTE ESTERASE SMALL (NEG)
--- NOTE | 2017-12-09 19:36 | MP ---
cc: Marylu Valero MD, [place] W MD DATE OF OPERATION: 12/09/2017 REASON FOR CONSULTATION: COPD exacerbation HISTORY OF PRESENT ILLNESS: Mr. Fox is a 62-year-old male who is morbidly obese, with known COPD and chronic respiratory failure on home oxygen therapy at 4 liters via nasal cannula. He as well has history of obstructive sleep apnea, recently started on CPAP therapy. The patient presents with increasing shortness of breath, increasing chest wheeze, occasional cough, no expectoration. No fever, no chills, no hemoptysis. No history of TB or previous industrial exposure. PAST MEDICAL HISTORY: 1. Chronic obstructive pulmonary disease. 2. Obstructive sleep apnea. 3. Chronic respiratory failure on home oxygen therapy. 4. Hypertension. 5. Hyperlipidemia. 6. Diabetes mellitus. 7. History of rectal cancer. MEDICATIONS AT HOME: 1. Spiriva once daily. 2. Albuterol p.r.n. 3. Synthroid 4. Budesonide formoterol . ALLERGIES: NONE KNOWN TO MEDICATION. FAMILY HISTORY: Noncontributory. SYSTEMS REVIEW: A 12-point review of systems as per HPI and past history, otherwise negative. PHYSICAL EXAMINATION: VITAL SIGNS: Temperature 98, pulse 90, respirations 20, blood pressure, oxygen saturation 94% on 4 liter nasal cannula. HEENT: Unremarkable. Eyes without icterus. NECK: Without adenopathy or thyroid enlargement. CHEST: The patient is morbidly obese. Breath sounds distant. Scattered wheeze noted. CARDIAC: PMI not appreciated. S1, S2 audible. No murmur. No rub. ABDOMEN: Lax. Bowel sounds audible. EXTREMITIES: 2+ edema. LABORATORY: White count 6.6, hemoglobin 13, hematocrit 39, platelets 195,000. Sodium 141, potassium 3.4, BUN 10, creatinine 1.1. IMAGING STUDIES: Chest x-ray: No acute abnormality seen. Ventilation perfusion lung scan was negative for pulmonary embolism. IMPRESSION: 1. Chronic obstructive pulmonary disease exacerbation. 2. Morbid obesity. 3. Obstructive sleep apnea. 4. Diabetes mellitus. 5. Hypertension. PLAN: The patient will be maintained on oxygen therapy, bronchodilator therapy. Empiric antibiotic therapy would be appropriate. His chest x-ray is without an acute infiltrate. He is to use BiPAP therapy while in the hospital. We will check baseline arterial blood gas. Follow his course along with you and, depending on progress, proceed further. Marylu Valero MD WWW/ , 07:14 PM , 07:35 PM
[2017-12-09] MEDS: BENZTROPINE MESYLATE 1 MG TAB PO SCH (21:37)
[2017-12-09] MEDS: risperiDONE 1 MG TAB PO SCH (21:37)
[2017-12-09] MEDS: MONTELUKAST SODIUM 10 MG TAB PO SCH (21:37)
[2017-12-09] MEDS: CITALOPRAM HYDROBROMIDE 40 MG TAB PO SCH (21:37)
[2017-12-10] VITALS (13 sets, daily range): BP systolic 109–126; BP diastolic 53–72; PULSE 65–109; RESP 18–20; TEMP 95.3–97.9; O2SAT 95–100
[2017-12-10] MEDS: methylPREDNISolone SOD SUCC 40 MG/1 ML VIAL IV PUSH SCH ×4 (00:25→18:07)
[2017-12-10] MEDS: RESP: ALBUTEROL 2.5 MG/IPRATROPIUM 0.5 MG NEB (SCH) NEB ×4 (03:07→19:14)
[2017-12-10] MEDS: LEVOTHYROXINE SODIUM 50 MCG TAB PO SCH (06:04)
--- NOTE | 2017-12-10 08:55 | HHI.PR ---
Subjective Remarks Follow up on patient with COPD exacerbation. Patient seen and examined. Patient states his breathing is a little better however he continues to have significant wheezing. He continues to have cough with thick sputum that is difficult to cough up. He denies any fever or chills. He denies any chest pain. Objective Vitals Vital Signs Date Time Temp Pulse Resp B/P (MAP) Pulse Ox O2 Delivery O2 Flow Rate FiO2 12/10/17 07:11 69 12/10/17 03:16 97.7 67 20 109/65 (80) 95 12/10/17 03:08 100 40 12/10/17 00:00 68 12/09/17 23:19 98.1 68 18 103/63 (76) 96 12/09/17 23:09 96 40 12/09/17 20:06 94 Nasal Cannula 4.00 12/09/17 20:05 71 12/09/17 19:46 98.7 79 20 101/55 (70) 94 12/09/17 16:46 98.2 80 20 160/74 (102) 96 12/09/17 12:18 98.9 80 20 138/80 (99) 94 I/O 12/09/17 12/09/17 12/09/17 12/10/17 12/10/17 12/10/17 07:00 15:00 23:00 07:00 15:00 23:00 Output Total 250 ml Balance -250 ml Output Urine Total 250 ml # Voids 1 2 # Bowel Movements 1 Result Diagram: 12/09/17 0732 12/09/17 0732 Imaging Last Impressions Chest X-Ray 12/08/17 1620 Signed Impressions: CONCLUSION: Negative examination. Lung Scan-V Nuclear Medicine 12/08/17 0000 Signed Impressions: CONCLUSION: 1. Negative for pulmonary embolus. Objective Remarks GENERAL: Well-developed well-nourished morbidly obese, male patient, in no acute distress. Asleep but easily awakens to voice. Appears comfortable. On 4 L nasal cannula. is at the bedside. SKIN: Warm and dry. Multiple excoriations noted on bilateral lower extremes, no evidence of infection. HEAD: Atraumatic. Normocephalic. EYES: Pupils equal round and reactive. Extraocular motions intact. No scleral icterus. No injection or drainage. ENT: Nose without bleeding or purulent drainage. Airway patent. MMM. NECK: Trachea midline. CARDIOVASCULAR: Regular rate and rhythm without murmurs, gallops, or rubs. RESPIRATORY: No accessory muscle use. Poor air movement with bilateral expiratory wheezing noted in all lung benito. GASTROINTESTINAL: Abdomen soft, non-tender, nondistended. No guarding. MUSCULOSKELETAL: Extremities without clubbing, cyanosis, or edema. No calf tenderness. NEUROLOGICAL: Awake and alert. Cranial nerves II through XII grossly intact. Motor and sensory grossly within normal limits. Nonfocal. Normal speech. PSYCHIATRIC: Calm and cooperative with examination. Procedures None A/P Assessment and Plan 62-year-old male with a past medical history of COPD (on 4 L nasal cannula at home), hypertension, hyperlipidemia, diabetes mellitus and a history of rectal cancer presents the emergency department for the evaluation of shortness of breath and hypoxia. Acute on chronic hypoxic respiratory failure O2 dependent, on 4 L at home Obesity hypoventilation syndrome COPD exacerbation Chest x-ray negative for acute process -Dr. Valero following, appreciate assistance -Continue on IV Levaquin -Continue on IV steroids and scheduled duo nebs -add po Mucinex -Continue on supplemental oxygen to maintain O2 sats greater than 92% -Continue on home medications Symbicort, Spiriva and Singulair -Continue to monitor respiratory status DM BS 184 this am -Resume Metformin, continue to hold Januvia -Continue with Accu-Cheks and insulin sliding scale Dysuria -UA unremarkable Hypokalemia -Resolved status post p.o. repletion Hypothyroidism -Continue on home dose of levothyroxine 50 mcg daily Schizophrenia -Continue on home medications History of GI bleed 10/19 s/p colonoscopy revealing internal hemorrhoids and colon polyp Recommended high-fiber diet by GI -no active bleeding noted -monitor DVT prophylaxis -Heparin sq Discharge Planning Not ready for discharge. Discharge pending clinical improvement and pulmonology clearance. Dariela Medina Dec 10, 2017 08:55
[2017-12-10] MEDS: INSULIN ASPART SUPPLEMENTAL SCALE SQ SCH ×4 (09:26→21:00)
[2017-12-10] MEDS: TIOTROPIUM BROMIDE 18 MCG INH INH SCH (09:26)
[2017-12-10] MEDS: BUDESONIDE-FORMOTEROL 160/4.5 MCG INHALER INH SCH ×2 (09:26→21:00)
[2017-12-10] MEDS: SODIUM CHLORIDE 0.9% FLUSH 10 ML FLUSH IV FLUSH SCH ×2 (09:27→21:00)
[2017-12-10] MEDS: LEVOFLOXACIN 750 MG PREMIX INJ 150 ML IV SCH (13:14)
[2017-12-10] MEDS ORDERED: guaiFENesin E.R. 600 MG TAB PO ONE (13:15)
[2017-12-10] MEDS: HEPARIN SODIUM - SQ 10,000 UNITS/ML VIAL SQ SCH (14:39)
[2017-12-10] MEDS: metFORMIN HCL 500 MG TAB PO SCH (18:07)
[2017-12-10] MEDS: risperiDONE 1 MG TAB PO SCH (20:54)
[2017-12-10] MEDS: guaiFENesin E.R. 600 MG TAB PO SCH (20:54)
[2017-12-10] MEDS: MONTELUKAST SODIUM 10 MG TAB PO SCH (20:54)
[2017-12-10] MEDS: CITALOPRAM HYDROBROMIDE 40 MG TAB PO SCH (20:54)
[2017-12-10] MEDS: BENZTROPINE MESYLATE 1 MG TAB PO SCH (20:54)
[2017-12-11] VITALS (14 sets, daily range): BP systolic 100–135; BP diastolic 54–87; PULSE 65–96; RESP 16–20; TEMP 96–98.7; O2SAT 91–98
[2017-12-11] MEDS: HEPARIN SODIUM - SQ 10,000 UNITS/ML VIAL SQ SCH ×2 (01:58→14:46)
[2017-12-11] MEDS: methylPREDNISolone SOD SUCC 40 MG/1 ML VIAL IV PUSH SCH ×2 (01:58→06:39)
[2017-12-11] MEDS: RESP: ALBUTEROL 2.5 MG/IPRATROPIUM 0.5 MG NEB (SCH) NEB ×4 (02:33→20:34)
[2017-12-11] MEDS: LEVOTHYROXINE SODIUM 50 MCG TAB PO SCH (06:39)
[2017-12-11] MEDS: INSULIN ASPART SUPPLEMENTAL SCALE SQ SCH ×4 (08:00→22:24)
[2017-12-11] MEDS: TIOTROPIUM BROMIDE 18 MCG INH INH SCH (08:53)
[2017-12-11] MEDS: BUDESONIDE-FORMOTEROL 160/4.5 MCG INHALER INH SCH ×2 (08:53→21:03)
[2017-12-11] MEDS: guaiFENesin E.R. 600 MG TAB PO SCH ×2 (08:54→21:04)
[2017-12-11] MEDS: SODIUM CHLORIDE 0.9% FLUSH 10 ML FLUSH IV FLUSH SCH ×2 (08:54→21:03)
[2017-12-11] MEDS: LEVOFLOXACIN 750 MG TAB PO SCH (08:54)
[2017-12-11] MEDS: metFORMIN HCL 500 MG TAB PO SCH ×2 (08:54→17:36)
[2017-12-11] MEDS ORDERED: INSULIN DETEMIR 100 UNITS/ML VIAL SQ SCH (09:00)
--- NOTE | 2017-12-11 09:39 | HHI.PR ---
Subjective Remarks Follow up on patient with COPD exacerbation. Patient seen and examined. He reports his breathing has improved. He is sitting up in bed eating breakfast with no oxygen on and appears comfortable. He reports his cough has improved. He denies any fever or chills. He denies any nausea, vomiting or abdominal pain. He denies any black/tarry/bloody stools. Objective Vitals Vital Signs Date Time Temp Pulse Resp B/P (MAP) Pulse Ox O2 Delivery O2 Flow Rate FiO2 12/11/17 08:00 96.6 65 20 120/67 (84) 91 12/11/17 07:22 66 12/11/17 04:20 74 18 119/70 (86) 94 12/11/17 02:34 97 40 12/11/17 00:09 82 18 135/87 (103) 92 12/10/17 23:30 97 40 12/10/17 19:53 97.9 95 18 110/53 (72) 96 12/10/17 19:15 96 Nasal Cannula 4.00 12/10/17 16:35 109 12/10/17 16:00 96.7 93 20 124/72 (89) 97 12/10/17 13:31 96 12/10/17 12:00 95.5 100 20 126/66 (86) 97 12/10/17 10:04 98 Nasal Cannula 4.00 I/O 12/10/17 12/10/17 12/10/17 12/11/17 12/11/17 12/11/17 07:00 15:00 23:00 07:00 15:00 23:00 Intake Total 200 ml Output Total 825 ml 350 ml Balance -825 ml -350 ml 200 ml Intake Oral 200 ml Output Urine Total 825 ml 350 ml Result Diagram: 12/09/17 0732 12/09/17 0732 Imaging Last Impressions Chest X-Ray 12/08/17 1620 Signed Impressions: CONCLUSION: Negative examination. Lung Scan-V Nuclear Medicine 12/08/17 0000 Signed Impressions: CONCLUSION: 1. Negative for pulmonary embolus. Objective Remarks GENERAL: Well-developed well-nourished morbidly obese, male patient, in no acute distress. Sitting up in bed without any oxygen on eating breakfast. SKIN: Warm and dry. Multiple excoriations noted on bilateral lower extremes, no evidence of infection. HEAD: Atraumatic. Normocephalic. EYES: Pupils equal round and reactive. Extraocular motions intact. No scleral icterus. No injection or drainage. ENT: Nose without bleeding or purulent drainage. Airway patent. MMM. NECK: Trachea midline. CARDIOVASCULAR: Regular rate and rhythm without murmurs, gallops, or rubs. RESPIRATORY: No accessory muscle use. Poor air movement with bilateral expiratory wheezing noted in all lung benito. GASTROINTESTINAL: Abdomen soft, non-tender, nondistended. No guarding. MUSCULOSKELETAL: Extremities without clubbing, cyanosis, or edema. No calf tenderness. NEUROLOGICAL: Awake and alert. Cranial nerves II through XII grossly intact. Motor and sensory grossly within normal limits. Nonfocal. Normal speech. PSYCHIATRIC: Calm and cooperative with examination. Procedures None A/P Assessment and Plan 62-year-old male with a past medical history of COPD (on 4 L nasal cannula at home), hypertension, hyperlipidemia, diabetes mellitus and a history of rectal cancer presents the emergency department for the evaluation of shortness of breath and hypoxia. Acute on chronic hypoxic respiratory failure O2 dependent, on 4 L at home Obesity hypoventilation syndrome COPD exacerbation Chest x-ray negative for acute process -Dr. Valero following, appreciate assistance -Continue on po Levaquin and Mucinex -Continue on scheduled duo nebs -taper to po steroids -Continue on supplemental oxygen to maintain O2 sats greater than 92% -Continue on home medications Symbicort, Spiriva and Singulair -Continue to monitor respiratory status DM BS ranging from 149 to 324 -start scheduled insulin Levemir 5mg daily while on IV steroids -Continue on Metformin, continue to hold Januvia -Continue with Accu-Cheks and insulin sliding scale Dysuria -UA unremarkable Hypokalemia -Resolved status post p.o. repletion Hypothyroidism -Continue on home dose of levothyroxine 50 mcg daily Schizophrenia -Continue on home medications History of GI bleed 10/19 s/p colonoscopy revealing internal hemorrhoids and colon polyp Recommended high-fiber diet by GI -no active bleeding noted -monitor DVT prophylaxis -Heparin sq Discharge Planning Discharge pending pulmonary clearance. Dariela Medina Dec 11, 2017 09:39
[2017-12-11] MEDS ORDERED: PRED20 PO (09:47)
[2017-12-11] MEDS ORDERED: LEVA750T9 PO (09:47)
[2017-12-11] MEDS ORDERED: guaiFENesin ER PO (09:47)
--- NOTE | 2017-12-11 09:50 | HHI.DCPOC ---
Discharge Care Plan Diagnosis: (1) Hypokalemia (2) Hypoxia (3) Respiratory failure (4) Acute exacerbation of chronic obstructive pulmonary disease (COPD) Goals to Promote Your Health * To prevent worsening of your condition and complications * To maintain your health at the optimal level Directions to Meet Your Goals Take your medications as prescribed Follow your dietary instruction Follow activity as directed Keep your appointments as scheduled Take your immunizations and boosters as scheduled If your symptoms worsen call your PCP, if no PCP go to Urgent Care Center or Emergency Room Smoking is Dangerous to Your Health. Avoid second hand smoke Call the 24-hour hour crisis hotline for domestic abuse at Dariela Medina Dec 11, 2017 09:50
--- NOTE | 2017-12-11 09:51 | HHI.DS ---
Discharge Summary Admission Date Dec 08, 2017 at 21:23 Admitting Diagnosis Shortness of breath, COPD exacerbation (1) Respiratory failure ICD Code: J96.90 - Respiratory failure, unspecified, unspecified whether with hypoxia or hypercapnia (2) Acute exacerbation of chronic obstructive pulmonary disease (COPD) ICD Code: J44.1 - Chronic obstructive pulmonary disease with (acute) exacerbation Status: Acute (3) Hypoxia ICD Code: R09.02 - Hypoxemia (4) Hypokalemia ICD Code: E87.6 - Hypokalemia (5) Gait instability ICD Code: R26.81 - Unsteadiness on feet Procedures None Brief History - From Admission 62-year-old male with a past medical history of COPD (on 4 L nasal cannula at home), hypertension, hyperlipidemia, diabetes mellitus and a history of rectal cancer presents the emergency department for the evaluation of shortness of breath and hypoxia. The patient was taking his pulse ox at home and noted that his oxygen saturation was in the 70s and 80s. He was wearing his home oxygen with a full tank at the time. He endorses associated shortness of breath that is worse with exertion. He denies any chest pain. No fevers/chills. No abdominal pain. No nausea/vomiting/diarrhea. No lateralizing signs/symptoms. CBC/BMP: 12/09/17 0732 12/09/17 0732 Discharge Instructions Follow up Referrals: PCP Follow-up - 1 Week Pulmonology - 1 Week with Marylu Valero MD New Medications: Bedside Commode (Bedside Commode) 1 Mis Mis EA .XX DIRECTED, #1 Levofloxacin (Levaquin) 750 Mg Tablet 750 MG PO DAILY for COPD exacerbation for 2 Days, #2 TAB Prednisone (Prednisone) 20 Mg Tab 40 MG PO DAILY for COPD exacerbation, #3 TAB [guaiFENesin ER] () 600 MG TABCR 1200 MG PO BID for COPD exacerbation, #10 TAB Continued Medications: Albuterol 18 GM Inh (Ventolin Hfa 18 GM Inh) 90 Mcg/Act Aer 2 PUFF INH Q4-6H PRN for SHORTNESS OF BREATH, #1 INHALER 3 Refills Albuterol Neb (Albuterol Neb) 2.5 Mg/3 Ml Neb 2.5 MG NEB Q4HR PRN for SOB/WHEEZING, #1 NEBULE 0 Refills Benztropine (Benztropine) 0.5 Mg Tab 1 MG PO HS, #30 TAB 0 Refills Citalopram (Citalopram) 40 Mg Tab 40 MG PO HS for Control Depression, #30 TAB 0 Refills Hydroxyzine Pamoate (Hydroxyzine Pamoate) 50 Mg Cap 50 MG PO EVERY 6-8 HOURS, CAP 0 Refills Ipratropium HFA 12.9 GM Inh (Atrovent HFA 12.9 GM Inh) 17 Mcg/Actuation Aer 2 PUFF INH Q6HR PRN for SHORTNESS OF BREATH, #1 INHALER 3 Refills Levothyroxine (Synthroid) 50 Mcg Tab 50 MCG PO DAILY@0600 for Thyroid Supplement, #30 TAB 3 Refills Metformin (Metformin) 1,000 Mg Tab 1000 MG PO BID for Blood Sugar Management, #60 TAB 0 Refills Montelukast (Montelukast) 10 Mg Tab 10 MG PO HS, #30 TAB 0 Refills Risperidone (Risperidone) 2 Mg Tab 2 MG PO HS, #30 TAB 0 Refills Sitagliptin (Januvia) 50 Mg Tab 50 MG PO DAILY for Blood Sugar Management, #30 TAB 0 Refills Tiotropium Inh (Spiriva Handihaler) 18 Mcg Cap 18 MCG INH DAILY for Breathing Treatment, #30 CAP 1 capsule = 18 mcg [Budeson-Formot 160-4.5 Mcg Inh] () 60 PUFF AERO 2 PUFF INH Q12HR for Breathing Treatment, #1 3 Refills Dariela Medina Dec 11, 2017 09:51
--- NOTE | 2017-12-11 17:00 | HHI.PR ---
Subjective Remarks ALERT SITTING IN BED NO DISTRESS Objective Vital Signs Date Time Temp Pulse Resp B/P (MAP) Pulse Ox O2 Delivery O2 Flow Rate FiO2 12/11/17 16:22 87 12/11/17 12:44 86 12/11/17 12:00 96.0 92 20 100/58 (72) 96 12/11/17 10:26 94 21 12/11/17 08:00 96.6 65 20 120/67 (84) 91 12/11/17 07:22 66 12/11/17 04:20 74 18 119/70 (86) 94 12/11/17 02:34 97 40 12/11/17 00:09 82 18 135/87 (103) 92 12/10/17 23:30 97 40 12/10/17 19:53 97.9 95 18 110/53 (72) 96 12/10/17 19:15 96 Nasal Cannula 4.00 I/O 12/10/17 12/10/17 12/10/17 12/11/17 12/11/17 12/11/17 07:00 15:00 23:00 07:00 15:00 23:00 Intake Total 200 ml Output Total 825 ml 350 ml 800 ml Balance -825 ml -350 ml 200 ml -800 ml Intake Oral 200 ml Output Urine Total 825 ml 350 ml 800 ml Result Diagram: 12/09/1773112/09/17731 Objective Remarks GENERAL: SKIN: Warm and dry. HEAD: Atraumatic. Normocephalic. EYES: Pupils equal and round. No scleral icterus. No injection or drainage. ENT: No nasal bleeding or discharge. Mucous membranes pink and moist. NECK: Trachea midline. No JVD. CARDIOVASCULAR: Regular rate and rhythm. RESPIRATORY: No accessory muscle use. Clear to auscultation. Breath sounds equal bilaterally. GASTROINTESTINAL: Abdomen soft, non-tender, nondistended. Hepatic and splenic margins not palpable. MUSCULOSKELETAL: Extremities without clubbing, cyanosis, 1+ edema. No obvious deformities. NEUROLOGICAL: Awake and alert. No obvious cranial nerve deficits. Motor grossly within normal limits. Five out of 5 muscle strength in the arms and legs. Normal speech. PSYCHIATRIC: Appropriate mood and affect; insight and judgment normal. Assessment and Plan Assessment and Plan IMP RESPIRATORY FAILURE COPD SHADIA ON PAP MORBID OBESITY PLAN O2 NEEDED LOOSE WT PAP THERAPY BRONCHODILATOR THERAPY INCREASE ACTIVITY Marylu Valero MD Dec 11, 2017 17:00
[2017-12-11] MEDS: MONTELUKAST SODIUM 10 MG TAB PO SCH (21:04)
[2017-12-11] MEDS: BENZTROPINE MESYLATE 1 MG TAB PO SCH (21:05)
[2017-12-11] MEDS: risperiDONE 1 MG TAB PO SCH (21:05)
[2017-12-11] MEDS: CITALOPRAM HYDROBROMIDE 40 MG TAB PO SCH (21:05)
[2017-12-12] VITALS (8 sets, daily range): BP systolic 89–127; BP diastolic 51–71; PULSE 57–75; RESP 16–21; TEMP 98.2–98.7; O2SAT 93–98
[2017-12-12] MEDS: HEPARIN SODIUM - SQ 10,000 UNITS/ML VIAL SQ SCH (01:30)
[2017-12-12] MEDS: RESP: ALBUTEROL 2.5 MG/IPRATROPIUM 0.5 MG NEB (SCH) NEB ×2 (03:52→08:35)
[2017-12-12] MEDS: LEVOTHYROXINE SODIUM 50 MCG TAB PO SCH (06:04)
[2017-12-12] MEDS: INSULIN ASPART SUPPLEMENTAL SCALE SQ SCH ×2 (08:00→13:40)
[2017-12-12] MEDS ORDERED: INSULIN DETEMIR 100 UNITS/ML VIAL SQ SCH (09:00)
[2017-12-12] MEDS ORDERED: predniSONE 20 MG TAB PO SCH (09:00)
[2017-12-12] MEDS: metFORMIN HCL 500 MG TAB PO SCH (09:00)
[2017-12-12] MEDS: guaiFENesin E.R. 600 MG TAB PO SCH (09:31)
[2017-12-12] MEDS: SODIUM CHLORIDE 0.9% FLUSH 10 ML FLUSH IV FLUSH SCH (09:31)
[2017-12-12] MEDS: LEVOFLOXACIN 750 MG TAB PO SCH (09:31)
[2017-12-12] MEDS: TIOTROPIUM BROMIDE 18 MCG INH INH SCH (09:32)
[2017-12-12] MEDS: BUDESONIDE-FORMOTEROL 160/4.5 MCG INHALER INH SCH (09:32)
[2017-12-12] MEDS ORDERED: PRED10 PO (11:38)
--- NOTE | 2017-12-12 11:42 | HHI.PR ---
Subjective Remarks Patient says he is feeling well. Says he feels like going home. Denies any chest pain. Reports shortness of breath much improved. Objective Vital Signs Date Time Temp Pulse Resp B/P (MAP) Pulse Ox O2 Delivery O2 Flow Rate FiO2 12/12/17 08:36 97 Nasal Cannula 3.00 12/12/17 08:28 98.2 68 21 127/71 (89) 96 12/12/17 06:15 Nasal Cannula 3.00 12/12/17 04:21 98.7 68 16 89/51 (64) 97 12/12/17 04:01 97 40 12/12/17 04:00 57 12/12/17 01:24 98 40 12/12/17 00:00 75 12/11/17 23:17 98.7 67 16 108/54 (72) 97 12/11/17 23:15 98 40 12/11/17 20:36 93 Nasal Cannula 3.00 12/11/17 20:00 96 12/11/17 19:57 97.7 87 18 103/56 (72) 97 12/11/17 16:22 87 12/11/17 12:44 86 12/11/17 12:00 96.0 92 20 100/58 (72) 96 I/O 12/11/17 12/11/17 12/11/17 12/12/17 12/12/17 12/12/17 07:00 15:00 23:00 07:00 15:00 23:00 Intake Total 200 ml 600 ml Output Total 800 ml 900 ml Balance 200 ml -800 ml -300 ml Intake Oral 200 ml 600 ml Output Urine Total 800 ml 900 ml # Voids 3 # Bowel Movements 0 Result Diagram: 12/09/17 0732 12/09/17 0732 Objective Remarks GENERAL: Patient sitting up in bed. Appears comfortable. Breathing comfortably. SKIN: Warm and dry. HEAD: Normocephalic. EYES: No scleral icterus. No injection or drainage. NECK: Supple, trachea midline. No JVD. CARDIOVASCULAR: Regular rate and rhythm without murmurs, gallops, or rubs. RESPIRATORY: Breath sounds equal bilaterally. No accessory muscle use. Distant breath sounds secondary to body habitus. GASTROINTESTINAL: Abdomen soft, non-tender, nondistended. MUSCULOSKELETAL: No cyanosis, or edema. BACK: Nontender without obvious deformity. No CVA tenderness. A/P Assessment and Plan 62-year-old male with a past medical history of COPD (on 4 L nasal cannula at home), hypertension, hyperlipidemia, diabetes mellitus and a history of rectal cancer presents the emergency department for the evaluation of shortness of breath and hypoxia. Acute on chronic hypoxic respiratory failure O2 dependent, on 4 L at home Obesity hypoventilation syndrome COPD exacerbation Chest x-ray negative for acute process -Dr. Valero following, appreciate assistance -Continue on po Levaquin and Mucinex -Continue on scheduled duo nebs -taper to po steroids -Continue on supplemental oxygen to maintain O2 sats greater than 92% -Continue on home medications Symbicort, Spiriva and Singulair -Continue to monitor respiratory status = Discharge home on prednisone taper. Follow-up with pulmonology as outpatient. //DM BS ranging from 149 to 324 -start scheduled insulin Levemir 5mg daily while on IV steroids -Continue on Metformin, continue to hold Januvia -Continue with Accu-Cheks and insulin sliding scale //Dysuria -UA unremarkable //Hypokalemia -Resolved status post p.o. repletion //Hypothyroidism -Continue on home dose of levothyroxine 50 mcg daily //Schizophrenia -Continue on home medications //History of GI bleed 10/19 s/p colonoscopy revealing internal hemorrhoids and colon polyp Recommended high-fiber diet by GI -no active bleeding noted -monitor //DVT prophylaxis -Heparin sq Discharge Planning Discussed with pulmonology. Discharge home. Follow-up with pulmonology as outpatient. Edmundo Griffith MD Dec 12, 2017 11:42
--- NOTE | 2017-12-12 11:47 | HHI.DS ---
Discharge Summary Admission Date Dec 08, 2017 at 21:23 Discharge Date: Dec 12, 2017 Admitting Diagnosis Shortness of breath, COPD exacerbation (1) Respiratory failure ICD Code: J96.90 - Respiratory failure, unspecified, unspecified whether with hypoxia or hypercapnia (2) Acute exacerbation of chronic obstructive pulmonary disease (COPD) ICD Code: J44.1 - Chronic obstructive pulmonary disease with (acute) exacerbation Status: Acute (3) Hypoxia ICD Code: R09.02 - Hypoxemia (4) Hypokalemia ICD Code: E87.6 - Hypokalemia (5) Gait instability ICD Code: R26.81 - Unsteadiness on feet Procedures None Brief History - From Admission 62-year-old male with a past medical history of COPD (on 4 L nasal cannula at home), hypertension, hyperlipidemia, diabetes mellitus and a history of rectal cancer presents the emergency department for the evaluation of shortness of breath and hypoxia. The patient was taking his pulse ox at home and noted that his oxygen saturation was in the 70s and 80s. He was wearing his home oxygen with a full tank at the time. He endorses associated shortness of breath that is worse with exertion. He denies any chest pain. No fevers/chills. No abdominal pain. No nausea/vomiting/diarrhea. No lateralizing signs/symptoms. CBC/BMP: 12/09/17 0732 12/09/17 0732 Significant Findings Laboratory Tests Test 12/09/17 16:10 12/09/17 20:03 Urine Ketones TRACE mg/dL (NEG) Urine Leukocyte Esterase SMALL (NEG) Urine WBC 8 /hpf (0-5) Urine Mucus FEW /lpf (OCC) Arterial Blood pH 7.43 (7.380-7.420) Imaging Last Impressions Chest X-Ray 12/08/17 1620 Signed Impressions: CONCLUSION: Negative examination. Lung Scan-VQ Nuclear Medicine 12/08/17 0000 Signed Impressions: CONCLUSION: 1. Negative for pulmonary embolus. PE at Discharge GENERAL: Well-developed well-nourished morbidly obese, male patient, in no acute distress. Sitting up in bed without any oxygen on eating breakfast. SKIN: Warm and dry. Multiple excoriations noted on bilateral lower extremes, no evidence of infection. HEAD: Atraumatic. Normocephalic. EYES: Pupils equal round and reactive. Extraocular motions intact. No scleral icterus. No injection or drainage. ENT: Nose without bleeding or purulent drainage. Airway patent. MMM. NECK: Trachea midline. CARDIOVASCULAR: Regular rate and rhythm without murmurs, gallops, or rubs. RESPIRATORY: No accessory muscle use. Poor air movement with bilateral expiratory wheezing noted in all lung benito. GASTROINTESTINAL: Abdomen soft, non-tender, nondistended. No guarding. MUSCULOSKELETAL: Extremities without clubbing, cyanosis, or edema. No calf tenderness. NEUROLOGICAL: Awake and alert. Cranial nerves II through XII grossly intact. Motor and sensory grossly within normal limits. Nonfocal. Normal speech. PSYCHIATRIC: Calm and cooperative with examination. Hospital Course 62-year-old male with a past medical history of COPD (on 4 L nasal cannula at home), hypertension, hyperlipidemia, diabetes mellitus and a history of rectal cancer presents the emergency department for the evaluation of shortness of breath and hypoxia. Chest x-ray unremarkable. VQ scan low probability for pulmonary embolism. Pulmonology was consulted and followed during admission. Patient had improvement in shortness of breath with IV steroids, antibiotics. Patient gradually improved, and was discharged home with steroid taper. For problem based summary from most recent progress note, please see below. Acute on chronic hypoxic respiratory failure O2 dependent, on 4 L at home Obesity hypoventilation syndrome COPD exacerbation Chest x-ray negative for acute process -Dr. Valero following, appreciate assistance -Continue on po Levaquin and Mucinex -Continue on scheduled duo nebs -taper to po steroids -Continue on supplemental oxygen to maintain O2 sats greater than 92% -Continue on home medications Symbicort, Spiriva and Singulair -Continue to monitor respiratory status = Discharge home on prednisone taper. Follow-up with pulmonology as outpatient. //DM BS ranging from 149 to 324 -start scheduled insulin Levemir 5mg daily while on IV steroids -Continue on Metformin, continue to hold Januvia -Continue with Accu-Cheks and insulin sliding scale = Discharge home with home medications. No need for Levemir at home. //Dysuria -UA unremarkable //Hypokalemia -Resolved status post p.o. repletion //Hypothyroidism -Continue on home dose of levothyroxine 50 mcg daily //Schizophrenia -Continue on home medications //History of GI bleed 10/19 s/p colonoscopy revealing internal hemorrhoids and colon polyp Recommended high-fiber diet by GI -no active bleeding noted -monitor //DVT prophylaxis -Heparin sq Discharge Planning Discussed with pulmonology. Discharge home. Follow-up with pulmonology as outpatient. Pt Condition on Discharge: Stable Discharge Disposition: Discharge Home Discharge Time: > 30 minutes Discharge Instructions DIET: Follow Instructions for: Heart Healthy Diet, Diabetic Diet Activities you can perform: Regular-No Restrictions Follow up Referrals: PCP Follow-up - 1 Week Pulmonology - 1 Week with Marylu Valero MD New Medications: Bedside Commode (Bedside Commode) 1 Mis Mis EA .XX DIRECTED, #1 Prednisone (Prednisone) 10 Mg Tab 10 MG PO DAILY for COPD, #21 TAB 0 Refills Take 40mg daily for 3 days; 20mg daily for 3 days; 10mg daily for 3 days, then stop. Levofloxacin (Levaquin) 750 Mg Tablet 750 MG PO DAILY for COPD exacerbation for 2 Days, #2 TAB [guaiFENesin ER] () 600 MG TABCR 1200 MG PO BID for COPD exacerbation, #10 TAB Continued Medications: Albuterol 18 GM Inh (Ventolin Hfa 18 GM Inh) 90 Mcg/Act Aer 2 PUFF INH Q4-6H PRN for SHORTNESS OF BREATH, #1 INHALER 3 Refills Albuterol Neb (Albuterol Neb) 2.5 Mg/3 Ml Neb 2.5 MG NEB Q4HR PRN for SOB/WHEEZING, #1 NEBULE 0 Refills Benztropine (Benztropine) 0.5 Mg Tab 1 MG PO HS, #30 TAB 0 Refills Citalopram (Citalopram) 40 Mg Tab 40 MG PO HS for Control Depression, #30 TAB 0 Refills Hydroxyzine Pamoate (Hydroxyzine Pamoate) 50 Mg Cap 50 MG PO EVERY 6-8 HOURS, CAP 0 Refills Ipratropium HFA 12.9 GM Inh (Atrovent HFA 12.9 GM Inh) 17 Mcg/Actuation Aer 2 PUFF INH Q6HR PRN for SHORTNESS OF BREATH, #1 INHALER 3 Refills Levothyroxine (Synthroid) 50 Mcg Tab 50 MCG PO DAILY@0600 for Thyroid Supplement, #30 TAB 3 Refills Metformin (Metformin) 1,000 Mg Tab 1000 MG PO BID for Blood Sugar Management, #60 TAB 0 Refills Montelukast (Montelukast) 10 Mg Tab 10 MG PO HS, #30 TAB 0 Refills Risperidone (Risperidone) 2 Mg Tab 2 MG PO HS, #30 TAB 0 Refills Sitagliptin (Januvia) 50 Mg Tab 50 MG PO DAILY for Blood Sugar Management, #30 TAB 0 Refills Tiotropium Inh (Spiriva Handihaler) 18 Mcg Cap 18 MCG INH DAILY for Breathing Treatment, #30 CAP 1 capsule = 18 mcg [Budeson-Formot 160-4.5 Mcg Inh] () 60 PUFF AERO 2 PUFF INH Q12HR for Breathing Treatment, #1 3 Refills Edmundo Griffith MD Dec 12, 2017 11:47
== END 2017-12-12 14:42 | disposition home or self-care (01) ==
LOC: NEDAMB 14:43 → NEDA 21:23 → NEPHCDU 23:28
PROVIDERS: ADMIT Internal Medicine; ATTEND Internal Medicine
DX: J44.1 Chronic obstructive pulmonary disease with (acute) exacerbation (principal); J96.21 Acute and chronic respiratory failure with hypoxia; E87.6 Hypokalemia; R26.81 Unsteadiness on feet; R30.0 Dysuria; E11.9 Type 2 diabetes mellitus without complications; I10 Essential (primary) hypertension; E78.5 Hyperlipidemia, unspecified; G47.33 Obstructive sleep apnea (adult) (pediatric); R60.0 Localized edema; E03.9 Hypothyroidism, unspecified; F32.9 Major depressive disorder, single episode, unspecified; F20.9 Schizophrenia, unspecified; E66.2 Morbid (severe) obesity with alveolar hypoventilation; Z99.81 Dependence on supplemental oxygen; Z85.048 Personal history of other malignant neoplasm of rectum, rectosigmoid junction, and anus; Z79.899 Other long term (current) drug therapy
CPT/HCPCS: 36600; 71046; 78582; 80048; 80053; 81001; 82805; 82948; 83880; 84484; 85025; 93005; 94002; 94003; 94150; 94640; 94664; 94667; 94668; 96365; 96366; 96372; 96375; 96376; 97162; 99285; A9540; A9567; G0378; G8987; G8988; J1644; J1815; J1956; J2920; J2930; J7512